=== PATIENT | female | born 1955 | race Two or more races ===

== ENCOUNTER 2016-11-19 15:24 | Inpatient (IN) | payer MEDICARE, OTHER ==
[~2016-11-19] VITALS: Ht 172.7 cm; Wt 74.1 kg
[2016-11-19] MEDS ORDERED: METHYL SALICYLATE/MENTHOL TOPICAL OINTMENT 29GM TUBE. TP PRN (18:15)
[2016-11-19] MEDS ORDERED: MAG HYDROX/AL HYDROX/SIMETH 30 ML ORAL.SUSP PO PRN (18:15)
[2016-11-19] MEDS ORDERED: MAGNESIUM HYDROXIDE 2,400 MG/30 ML ORAL.SUSP. PO PRN (18:15)
[2016-11-19] MEDS ORDERED: ACETAMINOPHEN 325 MG TABLET PO PRN (18:15)
[2016-11-19 18:26] VITALS: BP 103/62
[2016-11-19] MEDS ORDERED: BACL20TA PO (18:34)
[2016-11-19] MEDS ORDERED: VALA500T PO (18:34)
[2016-11-19] MEDS ORDERED: CALC-157 PO (18:34)
[2016-11-19] MEDS ORDERED: RANI75TA95 PO (18:34)
[2016-11-19] MEDS ORDERED: METO25TA4 PO (18:34)
[2016-11-19] MEDS ORDERED: MAGN400O7 PO (18:34)
[2016-11-19] MEDS ORDERED: ACET500T68 PO (18:34)
[2016-11-19] MEDS ORDERED: FLUV25TA PO (18:34)
[2016-11-19] MEDS ORDERED: MULT1TAB52 PO (18:34)
[2016-11-19] MEDS ORDERED: PSYLLIUM PO (18:34)
[2016-11-19] MEDS ORDERED: DIVA500T2 PO (18:34)
[2016-11-19] MEDS ORDERED: SENN8.6T99 PO (18:34)
[2016-11-19] MEDS ORDERED: POLY255P PO (18:34)
[2016-11-19] MEDS ORDERED: FAMO20TA5 PO (19:22)
[2016-11-19 19:53] LABS: ALBUMIN 3.5 g/dL (3.4-5.0); CALCIUM 8.9 mg/dL (8.5-10.1); CREATININE 0.6 mg/dL (0.6-1.0); GFR 102.3; POTASSIUM 4.1 mmol/L (3.5-5.1); TOTAL BILIRUBIN 0.3 mg/dL (0.2-1.0); TOTAL PROTEIN 6.9 g/dL (6.4-8.2)
[2016-11-19] MEDS: BACLOFEN 20 MG TABLET PO SCH (19:56)
[2016-11-19] MEDS: DIVALPROEX SODIUM 250 MG TABLET.DR. PO SCH (19:58)
[2016-11-19 20:18] LABS: PHENY < 10.0 mcg/mL (10.0-20.0); VAL ACID 61 mcg/mL (50-100)
[2016-11-19 20:24] LABS: BASO % 1 % (0-3); EOS # 0.1 x10^3/uL (0.0-0.7); EOS % 2 % (0-3); HEMATOCRIT 46.9 % (36.0-47.0); HEMOGLOBIN 16.3 g/dL (12.0-15.5); LYMPH # 2.3 x10^3/uL (1.0-4.8); LYMPH % 36 % (24-48); MEAN CORPUSCULAR HEMOGLOBIN 32 pg (25-35); MEAN CORPUSCULAR HGB CONC 35 g/dL (31-37); MEAN CORPUSCULAR VOLUME 92 fL (79-100); MONO # 0.5 x10^3/uL (0.0-1.1); MONO % 8 % (0-9); NEUT # 3.4 x10^3uL (1.8-7.7); NEUT % 54 % (31-73); PLATELET COUNT 227 x10^3/uL (140-400); RED CELL DISTRIBUTION WIDTH 13.3 % (11.5-14.5); WHITE BLOOD COUNT 6.3 x10^3/uL (4.0-11.0)
--- NOTE | 2016-11-19 20:56 | PDOC ---
Exam Tim Demential Exam: Tim Note: Please also refer to the separate dictated note~for this date of service dictated separately.~Patient seen individually. Discussed the patient with Nursing staff reviewed the chart.~Reviewed interim history and current functioning. Reviewed vital signs,~Labs/ Radiology~and current medications noted below. Continue current treatment with the changes noted in the dictated addendum note Assessment: Vital Signs: Vital Signs Date Time Temp Pulse Resp B/P (MAP) Pulse Ox O2 Delivery O2 Flow Rate FiO2 11/19/16 18:26 98.1 90 20 103/62 (76) 97 I&O Intake and Output 11/20/16 07:00 Intake Total 240 ml Balance 240 ml Intake Oral 240 ml Labs: Laboratory Tests Test 11/19/16 19:20 White Blood Count 6.3 x10^3/uL (4.0-11.0) Red Blood Count 5.10 x10^6/uL (3.50-5.40) Hemoglobin 16.3 g/dL (12.0-15.5) H Hematocrit 46.9 % (36.0-47.0) Mean Corpuscular Volume 92 fL (79-100) Mean Corpuscular Hemoglobin 32 pg (25-35) Mean Corpuscular Hemoglobin Concent 35 g/dL (31-37) Red Cell Distribution Width 13.3 % (11.5-14.5) Platelet Count 227 x10^3/uL (140-400) Neutrophils (%) (Auto) 54 % (31-73) Lymphocytes (%) (Auto) 36 % (24-48) Monocytes (%) (Auto) 8 % (0-9) Eosinophils (%) (Auto) 2 % (0-3) Basophils (%) (Auto) 1 % (0-3) Neutrophils # (Auto) 3.4 x10^3uL (1.8-7.7) Lymphocytes # (Auto) 2.3 x10^3/uL (1.0-4.8) Monocytes # (Auto) 0.5 x10^3/uL (0.0-1.1) Eosinophils # (Auto) 0.1 x10^3/uL (0.0-0.7) Basophils # (Auto) 0.0 x10^3/uL (0.0-0.2) Sodium Level 141 mmol/L (136-145) Potassium Level 4.1 mmol/L (3.5-5.1) Chloride Level 107 mmol/L (98-107) Carbon Dioxide Level 26 mmol/L (21-32) Anion Gap 8 (6-14) Blood Urea Nitrogen 10 mg/dL (7-20) Creatinine 0.6 mg/dL (0.6-1.0) Estimated GFR (Cockcroft-Gault) 102.3 BUN/Creatinine Ratio 17 (6-20) Glucose Level 137 mg/dL (70-99) H Calcium Level 8.9 mg/dL (8.5-10.1) Magnesium Level 2.0 mg/dL (1.8-2.4) Total Bilirubin 0.3 mg/dL (0.2-1.0) Aspartate Amino Transferase (AST) 9 U/L (15-37) L Alanine Aminotransferase (ALT) 26 U/L (14-59) Alkaline Phosphatase 94 U/L (46-116) Total Protein 6.9 g/dL (6.4-8.2) Albumin 3.5 g/dL (3.4-5.0) Albumin/Globulin Ratio 1.0 (1.0-1.7) Phenytoin (Dilantin) Level < 10.0 mcg/mL (10.0-20.0) L Phenytoin Last Dose Date 11/15/16 Phenytoin Last Dose Time 2100 Valproic Acid Level 61 mcg/mL (50-100) Valproic Acid Last Dose Date 11/19/16 Valproic Acid Last Dose Time 0900 Current Medications: Meds: Current Medications Acetaminophen (Tylenol) 650 mg PRN Q6HRS PRN PO PAIN / TEMP; Start 11/19/16 at 18:15 Multi-Ingredient Ointment (Analgesic [place]) 1 william PRN QID PRN TP MUSCLE PAIN; Start 11/19/16 at 18:15 Al Hydroxide/Mg Hydroxide (Mylanta Plus Xs) 15 ml PRN AFTMEALHC PRN PO DYSPEPSIA; Start 11/19/16 at 18:15 Magnesium Hydroxide (Milk Of Magnesia) 2,400 mg PRN QHS PRN PO CONSTIPATION; Start 11/19/16 at 18:15 Influenza Virus Vaccine Quadrival (Fluarix Quad 1367-6612 Syringe) 0.5 ml 1X ONCE VAX IM ; Start 11/20/16 at 09:00; Stop 11/20/16 at 09:01 Fluvoxamine Maleate (Luvox) 25 mg HS PO Last administered on 11/19/16 19:58; Start 11/19/16 at 21:00 Divalproex Sodium (Depakote) 1,000 mg BID PO Last administered on 11/19/16 19: 58; Start 11/19/16 at 21:00 Baclofen (Lioresal) 20 mg QID PO Last administered on 11/19/16 19:56; Start at 21:00 Famotidine (Pepcid) 20 mg DAILY PO ; Start 11/20/16 at 09:00 Polyethylene Glycol (miraLAX) 17 gm DAILY PO ; Start 11/20/16 at 09:00 Valacyclovir HCl (Valtrex) 500 mg DAILY PO ; Start 11/20/16 at 09:00 Active Scripts Active Reported Famotidine 20 Mg Tablet 20 Mg PO DAILY Valacyclovir (Valacyclovir Hcl) 500 Mg Tablet 500 Mg PO DAILY Polyethylene Glycol 3350 255 Gm Powder 17 Gm PO DAILY Metoprolol Tartrate 25 Mg Tablet 12.5 Mg PO BID Fluvoxamine Maleate 25 Mg Tablet 25 Mg PO HS Depakote (Divalproex Sodium) 500 Mg Tablet. 1,000 Mg PO BID Baclofen 20 Mg Tablet 20 Mg PO QID Diagnosis: Problems: (1) Bipolar disorder, curr episode mixed, severe, with psychotic features (2) Anxiety disorder (3) Impulse control disorder TRUPTI CARVAJAL MD Nov 19, 2016 20:56
[2016-11-20 06:14] VITALS: BP 109/74
[2016-11-20] MEDS ORDERED: Influenza vaccine per PROTOCOL. MC ONE (09:00)
[2016-11-20] MEDS ORDERED: FLU VACC QS2017-18 (36MOS+)/PF 0.5 ML SYRINGE. VAX IM ONE ×2 (09:00)
[2016-11-20] MEDS: valACYclovir 500 MG TABLET. PO SCH (09:39)
[2016-11-20] MEDS: DIVALPROEX SODIUM 250 MG TABLET.DR. PO SCH ×2 (09:39→19:39)
[2016-11-20] MEDS: BACLOFEN 20 MG TABLET PO SCH ×4 (09:39→19:39)
[2016-11-20] MEDS: FAMOTIDINE 20 MG TABLET PO SCH (09:39)
[2016-11-20] MEDS: POLYETHYLENE GLYCOL 3350 17 GM PACKET. PO SCH (09:39)
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
[2016-11-20 10:36] LABS: THYROID STIM HORMONE (TSH) 0.731 uIU/mL (0.358-3.740)
--- NOTE | 2016-11-20 12:05 | EKG ---
[address] [address] Test Date: 2016-11-20 Test Time: 11:19:45 Pat Name: JONAH CAMARA Department: Room: [address] [place] [address] Gender: F Sales Assistant: BRITTANY : 1955 Requested By: TRUPTI CARVAJAL Order Number: [id number] Reading MD: Rc Phillip Measurements Intervals [place] Rate: 92 P: 44 NE: 146 QRS: 12 QRSD: 74 T: 51 QT: 328 QTc: 410 Interpretive Statements SINUS RHYTHM LEFT ATRIAL ABNORMALITY ABNORMAL ECG RI6.01 No previous ECG available for comparison Electronically Signed On 12-03-2016 12:07:14 CDT by Rc Phillip
[2016-11-20 12:09] LABS: T3 TOTAL 90 ng/dL (71-180); THYROXINE 7.7 ug/dL (4.5-12.0)
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
[2016-11-20 16:54] VITALS: BP 117/77
[2016-11-20] MEDS: SIMVASTATIN 5 MG TABLET. PO SCH (19:40)
--- NOTE | 2016-11-20 21:10 | PDOC ---
Exam Tim Demential Exam: Tim Note: Please also refer to the separate dictated note~for this date of service dictated separately.~Patient seen individually. Discussed the patient with Nursing staff reviewed the chart.~Reviewed interim history and current functioning. Reviewed vital signs,~Labs/ Radiology~and current medications noted below. Continue current treatment with the changes noted in the dictated addendum note Assessment: Vital Signs: Vital Signs Date Time Temp Pulse Resp B/P (MAP) Pulse Ox O2 Delivery O2 Flow Rate FiO2 11/20/16 16:54 98.0 83 20 117/77 (90) 99 Room Air I&O Intake and Output 11/21/16 07:00 Intake Total 1080 ml Balance 1080 ml Intake Oral 1080 ml Current Medications: Meds: Current Medications Acetaminophen (Tylenol) 650 mg PRN Q6HRS PRN PO PAIN / TEMP; Start 11/19/16 at 18:15 Multi-Ingredient Ointment (Analgesic [place]) 1 william PRN QID PRN TP MUSCLE PAIN; Start 11/19/16 at 18:15 Al Hydroxide/Mg Hydroxide (Mylanta Plus Xs) 15 ml PRN AFTMEALHC PRN PO DYSPEPSIA; Start 11/19/16 at 18:15 Magnesium Hydroxide (Milk Of Magnesia) 2,400 mg PRN QHS PRN PO CONSTIPATION; Start 11/19/16 at 18:15 Influenza Virus Vaccine Quadrival (Fluarix Quad [id number] Syringe) 0.5 ml 1X ONCE VAX IM Last administered on 11/20/16 09:44; Start 11/20/16 at 09:00; Stop 11/20/16 at 09:01; Status DC Fluvoxamine Maleate (Luvox) 25 mg HS PO Last administered on 11/20/16 19:39; Start 11/19/16 at 21:00 Divalproex Sodium (Depakote) 1,000 mg BID PO Last administered on 11/20/16 19: 39; Start 11/19/16 at 21:00 Baclofen (Lioresal) 20 mg QID PO Last administered on 11/20/16 19:39; Start at 21:00 Famotidine (Pepcid) 20 mg DAILY PO Last administered on 11/20/16 09:39; Start 11/20/16 at 09:00 Polyethylene Glycol (miraLAX) 17 gm DAILY PO Last administered on 11/20/16 09: 39; Start 11/20/16 at 09:00 Valacyclovir HCl (Valtrex) 500 mg DAILY PO Last administered on 11/20/16 09:39 ; Start 11/20/16 at 09:00 Info (FLU VACCINE per PROTOCOL) 1 ea 1X ONCE MC ; Start 11/20/16 at 09:00; Stop 11/20/16 at 09:01; Status UNV Influenza Virus Vaccine Quadrival (Fluarix Quad [id number] Syringe) 0.5 ml ONCE ONCE VAX IM ; Start 11/20/16 at 09:00; Stop 11/20/16 at 10:40; Status DC Simvastatin (Zocor) 5 mg QHS PO Last administered on 11/20/16 19:40; Start at 21:00 Active Scripts Active Reported Famotidine 20 Mg Tablet 20 Mg PO DAILY Valacyclovir (Valacyclovir Hcl) 500 Mg Tablet 500 Mg PO DAILY Polyethylene Glycol 3350 255 Gm Powder 17 Gm PO DAILY Metoprolol Tartrate 25 Mg Tablet 12.5 Mg PO BID Fluvoxamine Maleate 25 Mg Tablet 25 Mg PO HS Depakote (Divalproex Sodium) 500 Mg Tablet.dr 1,000 Mg PO BID Baclofen 20 Mg Tablet 20 Mg PO QID Diagnosis: Problems: (1) Bipolar disorder, curr episode mixed, severe, with psychotic features (2) Anxiety disorder (3) Mild cognitive disorder (4) Impulse control disorder TRUPTI CARVAJAL MD Nov 20, 2016 21:10
[2016-11-20 22:10] LABS: HEMOGLOBIN A1C 4.6 % (4.8-5.6)
[2016-11-21 06:16] VITALS: BP 103/68
[2016-11-21] MEDS: FAMOTIDINE 20 MG TABLET PO SCH (09:32)
[2016-11-21] MEDS: valACYclovir 500 MG TABLET. PO SCH (09:32)
[2016-11-21] MEDS: DIVALPROEX SODIUM 250 MG TABLET.DR. PO SCH ×2 (09:32→20:50)
[2016-11-21] MEDS: BACLOFEN 20 MG TABLET PO SCH ×4 (09:32→19:49)
[2016-11-21] MEDS: POLYETHYLENE GLYCOL 3350 17 GM PACKET. PO SCH (09:32)
[2016-11-21 16:16] VITALS: BP 107/67
[2016-11-21 18:58] LABS: BASO % 1 % (0-3); EOS # 0.1 x10^3/uL (0.0-0.7); EOS % 2 % (0-3); HEMATOCRIT 43.2 % (36.0-47.0); HEMOGLOBIN 15.1 g/dL (12.0-15.5); LYMPH # 1.7 x10^3/uL (1.0-4.8); LYMPH % 35 % (24-48); MEAN CORPUSCULAR HEMOGLOBIN 32 pg (25-35); MEAN CORPUSCULAR HGB CONC 35 g/dL (31-37); MEAN CORPUSCULAR VOLUME 93 fL (79-100); MONO # 0.4 x10^3/uL (0.0-1.1); MONO % 9 % (0-9); NEUT # 2.7 x10^3uL (1.8-7.7); NEUT % 55 % (31-73); PLATELET COUNT 201 x10^3/uL (140-400); RED BLOOD COUNT 4.66 x10^6/uL (3.50-5.40); RED CELL DISTRIBUTION WIDTH 13.1 % (11.5-14.5); WHITE BLOOD COUNT 4.9 x10^3/uL (4.0-11.0)
[2016-11-21 19:02] LABS: ALBUMIN 3.1 g/dL (3.4-5.0); ALBUMIN/GLOBULIN RATIO 0.9 (1.0-1.7); ALK PHOS 79 U/L (46-116); ALT (SGPT) 18 U/L (14-59); ANION GAP 6 (6-14); AST (SGOT) 8 U/L (15-37); BLOOD UREA NITROGEN 11 mg/dL (7-20); BUN/CREATININE RATIO 22 (6-20); CALCIUM 8.4 mg/dL (8.5-10.1); CARBON DIOXIDE 32 mmol/L (21-32); CHLORIDE 106 mmol/L (98-107); CREATININE 0.5 mg/dL (0.6-1.0); GFR 126.3; GLUCOSE 88 mg/dL (70-99); SODIUM 144 mmol/L (136-145); TOTAL BILIRUBIN 0.2 mg/dL (0.2-1.0); TOTAL PROTEIN 6.4 g/dL (6.4-8.2)
[2016-11-21 19:10] LABS: VAL ACID 82 mcg/mL (50-100)
[2016-11-21] MEDS: QUEtiapine 25 MG TABLET. PO SCH (19:50)
[2016-11-21] MEDS: SIMVASTATIN 5 MG TABLET. PO SCH (19:50)
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
--- NOTE | 2016-11-21 22:40 | PDOC ---
Exam Tim Demential Exam: Tim Note: Please also refer to the separate dictated note~for this date of service dictated separately.~Patient seen individually. Discussed the patient with Nursing staff reviewed the chart.~Reviewed interim history and current functioning. Reviewed vital signs,~Labs/ Radiology~and current medications noted below. Continue current treatment with the changes noted in the dictated addendum note Assessment: Vital Signs: Vital Signs Date Time Temp Pulse Resp B/P (MAP) Pulse Ox O2 Delivery O2 Flow Rate FiO2 11/21/16 16:16 97.6 76 20 107/67 (80) 95 11/20/16 16:54 Room Air I&O Intake and Output 11/22/16 07:00 Intake Total 1800 ml Balance 1800 ml Intake Oral 1800 ml # Voids 2 Labs: Laboratory Tests Test 11/21/16 18:40 White Blood Count 4.9 x10^3/uL (4.0-11.0) Red Blood Count 4.66 x10^6/uL (3.50-5.40) Hemoglobin 15.1 g/dL (12.0-15.5) Hematocrit 43.2 % (36.0-47.0) Mean Corpuscular Volume 93 fL (79-100) Mean Corpuscular Hemoglobin 32 pg (25-35) Mean Corpuscular Hemoglobin Concent 35 g/dL (31-37) Red Cell Distribution Width 13.1 % (11.5-14.5) Platelet Count 201 x10^3/uL (140-400) Neutrophils (%) (Auto) 55 % (31-73) Lymphocytes (%) (Auto) 35 % (24-48) Monocytes (%) (Auto) 9 % (0-9) Eosinophils (%) (Auto) 2 % (0-3) Basophils (%) (Auto) 1 % (0-3) Neutrophils # (Auto) 2.7 x10^3uL (1.8-7.7) Lymphocytes # (Auto) 1.7 x10^3/uL (1.0-4.8) Monocytes # (Auto) 0.4 x10^3/uL (0.0-1.1) Eosinophils # (Auto) 0.1 x10^3/uL (0.0-0.7) Basophils # (Auto) 0.0 x10^3/uL (0.0-0.2) Sodium Level 144 mmol/L (136-145) Potassium Level 4.0 mmol/L (3.5-5.1) Chloride Level 106 mmol/L (98-107) Carbon Dioxide Level 32 mmol/L (21-32) Anion Gap 6 (6-14) Blood Urea Nitrogen 11 mg/dL (7-20) Creatinine 0.5 mg/dL (0.6-1.0) L Estimated GFR (Cockcroft-Gault) 126.3 BUN/Creatinine Ratio 22 (6-20) H Glucose Level 88 mg/dL (70-99) Calcium Level 8.4 mg/dL (8.5-10.1) L Total Bilirubin 0.2 mg/dL (0.2-1.0) Aspartate Amino Transferase (AST) 8 U/L (15-37) L Alanine Aminotransferase (ALT) 18 U/L (14-59) Alkaline Phosphatase 79 U/L (46-116) Total Protein 6.4 g/dL (6.4-8.2) Albumin 3.1 g/dL (3.4-5.0) L Albumin/Globulin Ratio 0.9 (1.0-1.7) L Valproic Acid Level 82 mcg/mL (50-100) Valproic Acid Last Dose Date 11/21/16 Valproic Acid Last Dose Time 0900 Current Medications: Meds: Current Medications Acetaminophen (Tylenol) 650 mg PRN Q6HRS PRN PO PAIN / TEMP; Start 11/19/16 at 18:15 Multi-Ingredient Ointment (Analgesic [place]) 1 william PRN QID PRN TP MUSCLE PAIN; Start 11/19/16 at 18:15 Al Hydroxide/Mg Hydroxide (Mylanta Plus Xs) 15 ml PRN AFTMEALHC PRN PO DYSPEPSIA; Start 11/19/16 at 18:15 Magnesium Hydroxide (Milk Of Magnesia) 2,400 mg PRN QHS PRN PO CONSTIPATION; Start 11/19/16 at 18:15 Influenza Virus Vaccine Quadrival (Fluarix Quad [id number] Syringe) 0.5 ml 1X ONCE VAX IM Last administered on 11/20/16t 09:44; Start 11/20/16 at 09:00; Stop 11/20/16 at 09:01; Status DC Fluvoxamine Maleate (Luvox) 25 mg HS PO Last administered on 11/21/16 19:49; Start 11/19/16 at 21:00 Divalproex Sodium (Depakote) 1,000 mg BID PO Last administered on 11/21/16 20: 50; Start 11/19/16 at 21:00 Baclofen (Lioresal) 20 mg QID PO Last administered on 11/21/16 19:49; Start at 21:00 Famotidine (Pepcid) 20 mg DAILY PO Last administered on 11/21/16 09:32; Start 11/20/16 at 09:00 Polyethylene Glycol (miraLAX) 17 gm DAILY PO Last administered on 11/21/16 09: 32; Start 11/20/16 at 09:00 Valacyclovir HCl (Valtrex) 500 mg DAILY PO Last administered on 11/21/16 09:32 ; Start 11/20/16 at 09:00 Info (FLU VACCINE per PROTOCOL) 1 ea 1X ONCE MC ; Start 11/20/16 at 09:00; Stop 11/20/16 at 09:01; Status UNV Influenza Virus Vaccine Quadrival (Fluarix Quad [id number] Syringe) 0.5 ml ONCE ONCE VAX IM ; Start 11/20/16 at 09:00; Stop 11/20/16 at 10:40; Status DC Simvastatin (Zocor) 5 mg QHS PO Last administered on 11/21/16 19:50; Start at 21:00 Quetiapine Fumarate (SEROquel) 25 mg HS PO Last administered on 11/21/16 19:50 ; Start 11/21/16 at 21:00 Active Scripts Active Reported Famotidine 20 Mg Tablet 20 Mg PO DAILY Valacyclovir (Valacyclovir Hcl) 500 Mg Tablet 500 Mg PO DAILY Polyethylene Glycol 3350 255 Gm Powder 17 Gm PO DAILY Metoprolol Tartrate 25 Mg Tablet 12.5 Mg PO BID Fluvoxamine Maleate 25 Mg Tablet 25 Mg PO HS Depakote (Divalproex Sodium) 500 Mg Tablet. 1,000 Mg PO BID Baclofen 20 Mg Tablet 20 Mg PO QID Diagnosis: Problems: (1) Bipolar disorder, curr episode mixed, severe, with psychotic features (2) Anxiety disorder (3) Impulse control disorder TRUPTI CARVAJAL MD Nov 21, 2016 22:40
[2016-11-22 06:50] VITALS: BP 109/64
[2016-11-22] MEDS: FAMOTIDINE 20 MG TABLET PO SCH (09:35)
[2016-11-22] MEDS: DIVALPROEX SODIUM 250 MG TABLET.DR. PO SCH ×2 (09:35→20:03)
[2016-11-22] MEDS: BACLOFEN 20 MG TABLET PO SCH ×4 (09:36→20:02)
[2016-11-22] MEDS: valACYclovir 500 MG TABLET. PO SCH (09:36)
[2016-11-22] MEDS: POLYETHYLENE GLYCOL 3350 17 GM PACKET. PO SCH (09:36)
[2016-11-22 16:23] VITALS: BP 106/66
[2016-11-22 17:52] LABS: BILIRUBIN,URINE NEG (NEG); CLARITY,URINE CLOUDY; COLOR,URINE YELLOW; GLUCOSE,URINE NEG (NEG)
[2016-11-22 17:53] LABS: BACTERIA,URINE MOD /HPF (0-FEW); NITRITE,URINE POS (NEG); SQUAMOUS EPITHELIAL CELL,UR FEW /LPF; UROBILINOGEN,URINE 0.2 mg/dL (0.2 mg/dL); WBC,URINE TNTC /HPF (0-4)
[2016-11-22] MEDS: QUEtiapine 25 MG TABLET. PO SCH (20:02)
[2016-11-22] MEDS: SIMVASTATIN 5 MG TABLET. PO SCH (20:03)
--- NOTE | 2016-11-22 20:59 | PDOC ---
Exam Tim Demential Exam: Tim Note: Please also refer to the separate dictated note~for this date of service dictated separately.~Patient seen individually. Discussed the patient with Nursing staff reviewed the chart.~Reviewed interim history and current functioning. Reviewed vital signs,~Labs/ Radiology~and current medications noted below. Continue current treatment with the changes noted in the dictated addendum note Assessment: Vital Signs: Vital Signs Date Time Temp Pulse Resp B/P (MAP) Pulse Ox O2 Delivery O2 Flow Rate FiO2 11/22/16 16:23 97.5 58 16 106/66 (79) 99 11/20/16 16:54 Room Air I&O Intake and Output 11/23/16 07:00 Intake Total 960 ml Output Total 325 ml Balance 635 ml Intake Oral 960 ml Output Urine Total 325 ml Labs: Laboratory Tests Test 11/22/16 15:30 Urine Collection Type Void Urine Color Yellow Urine Clarity Cloudy Urine pH 7.5 Urine Specific [place] 1.015 Urine Protein Neg (NEG-TRACE) Urine Glucose (UA) Neg mg/dL (NEG) Urine Ketones (Stick) Neg mg/dL (NEG) Urine Blood Mod (NEG) Urine Nitrite Pos (NEG) Urine Bilirubin Neg (NEG) Urine Urobilinogen Dipstick 0.2 mg/dL (0.2 mg/dL) Urine Leukocyte Esterase Large (NEG) Urine RBC 1-2 /HPF (0-2) Urine WBC Tntc /HPF (0-4) Urine Squamous Epithelial Cells Few /LPF Urine Bacteria Mod /HPF (0-FEW) Current Medications: Meds: Current Medications Acetaminophen (Tylenol) 650 mg PRN Q6HRS PRN PO PAIN / TEMP; Start 11/19/16 at 18:15 Multi-Ingredient Ointment (Analgesic [place]) 1 william PRN QID PRN TP MUSCLE PAIN; Start 11/19/16 at 18:15 Al Hydroxide/Mg Hydroxide (Mylanta Plus Xs) 15 ml PRN AFTMEALHC PRN PO DYSPEPSIA; Start 11/19/16 at 18:15 Magnesium Hydroxide (Milk Of Magnesia) 2,400 mg PRN QHS PRN PO CONSTIPATION; Start 11/19/16 at 18:15 Influenza Virus Vaccine Quadrival (Fluarix Quad [id number] Syringe) 0.5 ml 1X ONCE VAX IM Last administered on 11/20/16t 09:44; Start 11/20/16 at 09:00; Stop 11/20/16 at 09:01; Status DC Fluvoxamine Maleate (Luvox) 25 mg HS PO Last administered on 11/22/16 20:02; Start 11/19/16 at 21:00 Divalproex Sodium (Depakote) 1,000 mg BID PO Last administered on 11/22/16 20: 03; Start 11/19/16 at 21:00 Baclofen (Lioresal) 20 mg QID PO Last administered on 11/22/16 20:02; Start at 21:00 Famotidine (Pepcid) 20 mg DAILY PO Last administered on 11/22/16 09:35; Start 11/20/16 at 09:00 Polyethylene Glycol (miraLAX) 17 gm DAILY PO Last administered on 11/22/16 09: 36; Start 11/20/16 at 09:00 Valacyclovir HCl (Valtrex) 500 mg DAILY PO Last administered on 11/22/16 09:36 ; Start 11/20/16 at 09:00 Info (FLU VACCINE per PROTOCOL) 1 ea 1X ONCE MC ; Start 11/20/16 at 09:00; Stop 11/20/16 at 09:01; Status UNV Influenza Virus Vaccine Quadrival (Fluarix Quad [id number] Syringe) 0.5 ml ONCE ONCE VAX IM ; Start 11/20/16 at 09:00; Stop 11/20/16 at 10:40; Status DC Simvastatin (Zocor) 5 mg QHS PO Last administered on 11/22/16 20:03; Start at 21:00 Quetiapine Fumarate (SEROquel) 25 mg HS PO Last administered on 11/22/16 20:02 ; Start 11/21/16 at 21:00 Active Scripts Active Reported Famotidine 20 Mg Tablet 20 Mg PO DAILY Valacyclovir (Valacyclovir Hcl) 500 Mg Tablet 500 Mg PO DAILY Polyethylene Glycol 3350 255 Gm Powder 17 Gm PO DAILY Metoprolol Tartrate 25 Mg Tablet 12.5 Mg PO BID Fluvoxamine Maleate 25 Mg Tablet 25 Mg PO HS Depakote (Divalproex Sodium) 500 Mg Tablet. 1,000 Mg PO BID Baclofen 20 Mg Tablet 20 Mg PO QID Diagnosis: Problems: (1) Bipolar disorder, curr episode mixed, severe, with psychotic features (2) Anxiety disorder (3) Impulse control disorder TRUPTI CARVAJAL MD Nov 22, 2016 20:59
[2016-11-23 06:18] VITALS: BP 114/67
--- NOTE | 2016-11-23 07:06 | PN ---
DATE: 11/21/2016 PSYCHIATRIC PROGRESS NOTE This late entry 11/21/2016, covers elements not covered in my initial note of 11/21/2016. I met with the patient evening of 11/21/2016. The patient's UA has a strong odor, has been sent for urine C and S. She remains quite paranoid, more so the previous evening, better during the day on 11/21/2016. REVIEW OF SYSTEMS: Ambulation impaired, in a Broda chair. No CV, , pulmonary, eye, ENT system symptoms on review. MENTAL STATUS EXAM: Reasonably oriented. Speech is coherent, abstraction fair, computation impaired, language function intact, totally denies any psychiatric problems whatsoever, insistent she will do just fine without any psychotropics minimizes her suicide attempt in the past processed all of this with her labs reviewed. IMPRESSION: Bipolar 1 disorder, mixed with psychotic features; anxiety disorder, unspecified mild cognitive impairment. PLAN: Valproic acid level is therapeutic. Continue Depakote 1000 mg b.i.d., Seroquel is 25 mg at bedtime, Luvox 25 mg a day, starting in a day or two, we may increase the Seroquel, but I would like to first make sure she does not have a UTI and if she does treat that and then see what psychiatric symptoms are remaining before increasing her psychotropics. Reviewed drug contractions, risk/benefit ratio favors no further change. TRUPTI CARVAJAL MD DR: ABBIE/juliana JOB#: [id number] / [id number]
[2016-11-23] MEDS: DIVALPROEX SODIUM 250 MG TABLET.DR. PO SCH ×2 (08:16→19:31)
[2016-11-23] MEDS: FAMOTIDINE 20 MG TABLET PO SCH (08:16)
[2016-11-23] MEDS: BACLOFEN 20 MG TABLET PO SCH ×4 (08:16→19:31)
[2016-11-23] MEDS: POLYETHYLENE GLYCOL 3350 17 GM PACKET. PO SCH (08:17)
[2016-11-23] MEDS: valACYclovir 500 MG TABLET. PO SCH (08:17)
[2016-11-23 16:05] VITALS: BP 131/90
[2016-11-23] MEDS: SIMVASTATIN 5 MG TABLET. PO SCH (19:31)
[2016-11-23] MEDS: QUEtiapine 25 MG TABLET. PO SCH (19:31)
--- NOTE | 2016-11-23 20:52 | PDOC ---
Exam Tim Demential Exam: Tim Note: Please also refer to the separate dictated note~for this date of service dictated separately.~Patient seen individually. Discussed the patient with Nursing staff reviewed the chart.~Reviewed interim history and current functioning. Reviewed vital signs,~Labs/ Radiology~and current medications noted below. Continue current treatment with the changes noted in the dictated addendum note Assessment: Vital Signs: Vital Signs Date Time Temp Pulse Resp B/P (MAP) Pulse Ox O2 Delivery O2 Flow Rate FiO2 11/23/16 16:05 97.2 71 18 131/90 (104) 98 11/20/16 16:54 Room Air I&O Intake and Output 11/24/16 07:00 Intake Total 1320 ml Balance 1320 ml Intake Oral 1320 ml Current Medications: Meds: Current Medications Acetaminophen (Tylenol) 650 mg PRN Q6HRS PRN PO PAIN / TEMP; Start 11/19/16 at 18:15 Multi-Ingredient Ointment (Analgesic [place]) 1 william PRN QID PRN TP MUSCLE PAIN; Start 11/19/16 at 18:15 Al Hydroxide/Mg Hydroxide (Mylanta Plus Xs) 15 ml PRN AFTMEALHC PRN PO DYSPEPSIA; Start 11/19/16 at 18:15 Magnesium Hydroxide (Milk Of Magnesia) 2,400 mg PRN QHS PRN PO CONSTIPATION; Start 11/19/16 at 18:15 Influenza Virus Vaccine Quadrival (Fluarix Quad [id number] Syringe) 0.5 ml 1X ONCE VAX IM Last administered on 11/20/16 09:44; Start 11/20/16 at 09:00; Stop 11/20/16 at 09:01; Status DC Fluvoxamine Maleate (Luvox) 25 mg HS PO Last administered on 11/23/16 19:31; Start 11/19/16 at 21:00 Divalproex Sodium (Depakote) 1,000 mg BID PO Last administered on 11/23/16 19: 31; Start 11/19/16 at 21:00 Baclofen (Lioresal) 20 mg QID PO Last administered on 11/23/16 19:31; Start at 21:00 Famotidine (Pepcid) 20 mg DAILY PO Last administered on 11/23/16 08:16; Start 11/20/16 at 09:00 Polyethylene Glycol (miraLAX) 17 gm DAILY PO Last administered on 11/23/16 08: 17; Start 11/20/16 at 09:00 Valacyclovir HCl (Valtrex) 500 mg DAILY PO Last administered on 11/23/16 08:17 ; Start 11/20/16 at 09:00 Info (FLU VACCINE per PROTOCOL) 1 ea 1X ONCE MC ; Start 11/20/16 at 09:00; Stop 11/20/16 at 09:01; Status UNV Influenza Virus Vaccine Quadrival (Fluarix Quad [id number] Syringe) 0.5 ml ONCE ONCE VAX IM ; Start 11/20/16 at 09:00; Stop 11/20/16 at 10:40; Status DC Simvastatin (Zocor) 5 mg QHS PO Last administered on 11/23/16 19:31; Start at 21:00 Quetiapine Fumarate (SEROquel) 25 mg HS PO Last administered on 11/23/16 19:31 ; Start 11/21/16 at 21:00 Active Scripts Active Reported Famotidine 20 Mg Tablet 20 Mg PO DAILY Valacyclovir (Valacyclovir Hcl) 500 Mg Tablet 500 Mg PO DAILY Polyethylene Glycol 3350 255 Gm Powder 17 Gm PO DAILY Metoprolol Tartrate 25 Mg Tablet 12.5 Mg PO BID Fluvoxamine Maleate 25 Mg Tablet 25 Mg PO HS Depakote (Divalproex Sodium) 500 Mg Tablet. 1,000 Mg PO BID Baclofen 20 Mg Tablet 20 Mg PO QID Diagnosis: Problems: (1) Bipolar disorder, curr episode mixed, severe, with psychotic features (2) Anxiety disorder (3) Impulse control disorder TRUPTI CARVAJAL MD Nov 23, 2016 20:52
[2016-11-24 06:21] VITALS: BP 95/61
[2016-11-24] MEDS: DIVALPROEX SODIUM 250 MG TABLET.DR. PO SCH ×2 (08:24→20:24)
[2016-11-24] MEDS: FAMOTIDINE 20 MG TABLET PO SCH (08:24)
[2016-11-24] MEDS: POLYETHYLENE GLYCOL 3350 17 GM PACKET. PO SCH (08:24)
[2016-11-24] MEDS: valACYclovir 500 MG TABLET. PO SCH (08:24)
[2016-11-24] MEDS: BACLOFEN 20 MG TABLET PO SCH ×4 (08:24→20:23)
[2016-11-24 16:11] VITALS: BP 131/78
--- NOTE | 2016-11-24 19:09 | PN ---
DATE: 11/22/2016 PSYCHIATRIC PROGRESS NOTE This is a late entry 11/22/2016, covers elements not covered in my initial note of 11/22/2016. SUBJECTIVE: I met with the patient the evening of 11/22/2016. Per nursing report; the patient has been calm, cooperative, gets little anxious, labile at times, but redirects. REVIEW OF SYSTEMS: Ambulation impaired, in a Broda chair. No CV, , pulmonary, eye, ENT system symptoms on review. MENTAL STATUS EXAM: Reasonably oriented. Speech is coherent, abstraction fair, computation impaired, language function intact, attention span short. Mood and affect; she is somewhat obsessive, repetitive, ruminative. Denies that she has any psychiatric problems whatsoever. Denies what happened in the past suicide attempt. She admits there is a family history of bipolar disorder, but "I don't have it." Processed this at length with her. Mental status exam reasonably oriented. Speech coherent, abstraction fair, computation impaired, language function intact, attention span short. Mood and affect somewhat anxious, at times labile, showing improvement. LABORATORY DATA: Valproic acid level therapeutic at 82. DIAGNOSIS: Mentioned in my initial note. PLAN: Continue Depakote, Luvox, Seroquel. We will see how she does over the next day or two and then increase Luvox and/or Seroquel since Depakote is therapeutic. MAN Derrick CARVAJAL MD DR: ABBIE/juliana JOB#: [id number] / [id number]
[2016-11-24] MEDS: QUEtiapine 25 MG TABLET. PO SCH (20:23)
[2016-11-24] MEDS: SIMVASTATIN 5 MG TABLET. PO SCH (20:25)
[2016-11-24] MEDS: CEFPODOXIME PROXETIL 100 MG TABLET PO SCH (20:26)
--- NOTE | 2016-11-24 20:43 | PDOC ---
Exam Tim Demential Exam: Tim Note: Please also refer to the separate dictated note~for this date of service dictated separately.~Patient seen individually. Discussed the patient with Nursing staff reviewed the chart.~Reviewed interim history and current functioning. Reviewed vital signs,~Labs/ Radiology~and current medications noted below. Continue current treatment with the changes noted in the dictated addendum note Assessment: Vital Signs: Vital Signs Date Time Temp Pulse Resp B/P (MAP) Pulse Ox O2 Delivery O2 Flow Rate FiO2 11/24/16 16:11 98.1 74 18 131/78 (95) 98 11/20/16 16:54 Room Air I&O Intake and Output 11/25/16 06:59 Intake Total 1200 ml Output Total 1 ml Balance 1199 ml Intake Oral 1200 ml Output Urine Total 1 ml # Bowel Movements 5 Current Medications: Meds: Current Medications Acetaminophen (Tylenol) 650 mg PRN Q6HRS PRN PO PAIN / TEMP; Start 11/19/16 at 18:15 Multi-Ingredient Ointment (Analgesic [place]) 1 william PRN QID PRN TP MUSCLE PAIN; Start 11/19/16 at 18:15 Al Hydroxide/Mg Hydroxide (Mylanta Plus Xs) 15 ml PRN AFTMEALHC PRN PO DYSPEPSIA; Start 11/19/16 at 18:15 Magnesium Hydroxide (Milk Of Magnesia) 2,400 mg PRN QHS PRN PO CONSTIPATION; Start 11/19/16 at 18:15 Influenza Virus Vaccine Quadrival (Fluarix Quad [id number] Syringe) 0.5 ml 1X ONCE VAX IM Last administered on 11/20/16 09:44; Start 11/20/16 at 09:00; Stop 11/20/16 at 09:01; Status DC Fluvoxamine Maleate (Luvox) 25 mg HS PO Last administered on 11/24/16 20:23; Start 11/19/16 at 21:00 Divalproex Sodium (Depakote) 1,000 mg BID PO Last administered on 11/24/16 20: 24; Start 11/19/16 at 21:00 Baclofen (Lioresal) 20 mg QID PO Last administered on 11/24/16 20:23; Start at 21:00 Famotidine (Pepcid) 20 mg DAILY PO Last administered on 11/24/16 08:24; Start 11/20/16 at 09:00 Polyethylene Glycol (miraLAX) 17 gm DAILY PO Last administered on 11/24/16 08: 24; Start 11/20/16 at 09:00 Valacyclovir HCl (Valtrex) 500 mg DAILY PO Last administered on 11/24/16 08:24 ; Start 11/20/16 at 09:00 Info (FLU VACCINE per PROTOCOL) 1 ea 1X ONCE MC ; Start 11/20/16 at 09:00; Stop 11/20/16 at 09:01; Status UNV Influenza Virus Vaccine Quadrival (Fluarix Quad [id number] Syringe) 0.5 ml ONCE ONCE VAX IM ; Start 11/20/16 at 09:00; Stop 11/20/16 at 10:40; Status DC Simvastatin (Zocor) 5 mg QHS PO Last administered on 11/24/16 20:25; Start at 21:00 Quetiapine Fumarate (SEROquel) 25 mg HS PO Last administered on 11/24/16 20:23 ; Start 11/21/16 at 21:00 Cefpodoxime Proxetil (Vantin) 200 mg BID PO Last administered on 11/24/16 20: 26; Start 11/24/16 at 21:00 Active Scripts Active Reported Famotidine 20 Mg Tablet 20 Mg PO DAILY Valacyclovir (Valacyclovir Hcl) 500 Mg Tablet 500 Mg PO DAILY Polyethylene Glycol 3350 255 Gm Powder 17 Gm PO DAILY Metoprolol Tartrate 25 Mg Tablet 12.5 Mg PO BID Fluvoxamine Maleate 25 Mg Tablet 25 Mg PO HS Depakote (Divalproex Sodium) 500 Mg Tablet. 1,000 Mg PO BID Baclofen 20 Mg Tablet 20 Mg PO QID Diagnosis: Problems: (1) Bipolar disorder, curr episode mixed, severe, with psychotic features (2) Anxiety disorder (3) Impulse control disorder TRUPTI CARVAJAL MD Nov 24, 2016 20:43
--- NOTE | 2016-11-25 03:57 | PN ---
DATE: 11/23/2016 This late entry 11/23/2016 covers elements not covered in my initial note of 11/23/2016. SUBJECTIVE: I met with the patient in the evening of 11/23/2016. She has attended group therapy, has been cooperative, a little anxious, dysphoric, obsessive at times. REVIEW OF SYSTEMS: Ambulation impaired, in Broda chair. No CV, , pulmonary, eye, ENT system symptoms on review. MENTAL STATUS EXAM: Oriented to herself and situation. Speech moderate latency, often responses monosyllabic, somewhat ruminative, again minimizes, denies any psychiatric problems whatsoever. Speech coherent, abstraction fair, computation impaired, language function intact, attention span short. Mood and affect somewhat withdrawn. LABORATORY DATA: Reviewed. IMPRESSION: Unchanged from initial note. Valproic acid level therapeutic at 82. PLAN: Continue Depakote 1000 mg b.i.d., Seroquel is 25 mg at bedtime, Luvox 25 mg at bedtime, may need to increase Luvox in due course. Review drug interactions, risk/benefit ratio favors no further change. TRUPTI CARVAJAL MD DR: ABBIE/juliana JOB#: [id number] / [id number]
[2016-11-25 05:57] VITALS: BP 117/77
[2016-11-25] MEDS: POLYETHYLENE GLYCOL 3350 17 GM PACKET. PO SCH (10:05)
[2016-11-25] MEDS: FAMOTIDINE 20 MG TABLET PO SCH (10:05)
[2016-11-25] MEDS: DIVALPROEX SODIUM 250 MG TABLET.DR. PO SCH ×2 (10:06→20:20)
[2016-11-25] MEDS: CEFPODOXIME PROXETIL 100 MG TABLET PO SCH ×2 (10:06→20:21)
[2016-11-25] MEDS: BACLOFEN 20 MG TABLET PO SCH ×4 (10:06→20:20)
[2016-11-25] MEDS: valACYclovir 500 MG TABLET. PO SCH (10:07)
[2016-11-25 15:52] VITALS: BP 108/60
[2016-11-25] MEDS: QUEtiapine 25 MG TABLET. PO SCH (20:21)
[2016-11-25] MEDS: SIMVASTATIN 5 MG TABLET. PO SCH (20:22)
--- NOTE | 2016-11-25 20:40 | PDOC ---
Exam Tim Demential Exam: Tim Note: Please also refer to the separate dictated note~for this date of service dictated separately.~Patient seen individually. Discussed the patient with Nursing staff reviewed the chart.~Reviewed interim history and current functioning. Reviewed vital signs,~Labs/ Radiology~and current medications noted below. Continue current treatment with the changes noted in the dictated addendum note Assessment: Vital Signs: Vital Signs Date Time Temp Pulse Resp B/P (MAP) Pulse Ox O2 Delivery O2 Flow Rate FiO2 11/25/16 15:52 97.4 86 20 108/60 (76) 98 Room Air I&O Intake and Output 11/26/16 07:00 Intake Total 720 ml Balance 720 ml Intake Oral 720 ml Current Medications: Meds: Current Medications Acetaminophen (Tylenol) 650 mg PRN Q6HRS PRN PO PAIN / TEMP; Start 11/19/16 at 18:15 Multi-Ingredient Ointment (Analgesic [place]) 1 william PRN QID PRN TP MUSCLE PAIN; Start 11/19/16 at 18:15 Al Hydroxide/Mg Hydroxide (Mylanta Plus Xs) 15 ml PRN AFTMEALHC PRN PO DYSPEPSIA; Start 11/19/16 at 18:15 Magnesium Hydroxide (Milk Of Magnesia) 2,400 mg PRN QHS PRN PO CONSTIPATION; Start 11/19/16 at 18:15 Influenza Virus Vaccine Quadrival (Fluarix Quad [id number] Syringe) 0.5 ml 1X ONCE VAX IM Last administered on 11/20/16 09:44; Start 11/20/16 at 09:00; Stop 11/20/16 at 09:01; Status DC Fluvoxamine Maleate (Luvox) 25 mg HS PO Last administered on 11/25/16 20:21; Start 11/19/16 at 21:00 Divalproex Sodium (Depakote) 1,000 mg BID PO Last administered on 11/25/16 20: 20; Start 11/19/16 at 21:00 Baclofen (Lioresal) 20 mg QID PO Last administered on 11/25/16 20:20; Start at 21:00 Famotidine (Pepcid) 20 mg DAILY PO Last administered on 11/25/16 10:05; Start 11/20/16 at 09:00 Polyethylene Glycol (miraLAX) 17 gm DAILY PO Last administered on 11/25/16 10: 05; Start 11/20/16 at 09:00 Valacyclovir HCl (Valtrex) 500 mg DAILY PO Last administered on 11/25/16 10:07 ; Start 11/20/16 at 09:00 Info (FLU VACCINE per PROTOCOL) 1 ea 1X ONCE MC ; Start 11/20/16 at 09:00; Stop 11/20/16 at 09:01; Status UNV Influenza Virus Vaccine Quadrival (Fluarix Quad [id number] Syringe) 0.5 ml ONCE ONCE VAX IM ; Start 11/20/16 at 09:00; Stop 11/20/16 at 10:40; Status DC Simvastatin (Zocor) 5 mg QHS PO Last administered on 11/25/16 20:22; Start at 21:00 Quetiapine Fumarate (SEROquel) 25 mg HS PO Last administered on 11/25/16 20:21 ; Start 11/21/16 at 21:00 Cefpodoxime Proxetil (Vantin) 200 mg BID PO Last administered on 11/25/16 20: 21; Start 11/24/16 at 21:00 Active Scripts Active Reported Famotidine 20 Mg Tablet 20 Mg PO DAILY Valacyclovir (Valacyclovir Hcl) 500 Mg Tablet 500 Mg PO DAILY Polyethylene Glycol 3350 255 Gm Powder 17 Gm PO DAILY Metoprolol Tartrate 25 Mg Tablet 12.5 Mg PO BID Fluvoxamine Maleate 25 Mg Tablet 25 Mg PO HS Depakote (Divalproex Sodium) 500 Mg Tablet. 1,000 Mg PO BID Baclofen 20 Mg Tablet 20 Mg PO QID Diagnosis: Problems: (1) Bipolar disorder, curr episode mixed, severe, with psychotic features (2) Anxiety disorder (3) Impulse control disorder TRUPTI CARVAJAL MD Nov 25, 2016 20:40
[2016-11-26 06:10] VITALS: BP 118/62
--- NOTE | 2016-11-26 06:47 | PN ---
DATE: 11/24/2016 PSYCHIATRIC PROGRESS NOTE This late entry of 11/24/2016, covers elements not covered in my initial note of 11/24/2016. I met with the patient evening of 11/24/2016. Overall, the patient has done reasonably well, gets a little apologetic, anxious. Reportedly, her half-sister called and she did reasonably well with this interaction. It is her blood sister who seems to trigger some of her reactions and we will discuss this staffing on 11/25/2016 with the family. She takes her medications whole, otherwise cooperative, needs help with her meals. No hallucinations noted. REVIEW OF SYSTEMS: Ambulation impaired, in a Broda chair. No CV, , pulmonary, eye, ENT system symptoms on review. MENTAL STATUS EXAM: Reasonably oriented. Speech is coherent, less pressured. Abstraction fair, computation impaired, attention span short, language function intact. Mood and affect showing improvement. LABORATORY DATA: Reviewed. IMPRESSION: Unchanged from my initial note. PLAN: Continue current psychotropics, reviewed drug interactions, risk/benefit ratio favors no change. TRUPTI CARVAJAL MD DR: ABBIE/juliana JOB#: [id number] / [id number]
[2016-11-26] MEDS: valACYclovir 500 MG TABLET. PO SCH (09:00)
[2016-11-26] MEDS: DIVALPROEX SODIUM 250 MG TABLET.DR. PO SCH ×2 (09:42→19:50)
[2016-11-26] MEDS: BACLOFEN 20 MG TABLET PO SCH ×4 (09:42→19:50)
[2016-11-26] MEDS: CEFPODOXIME PROXETIL 100 MG TABLET PO SCH ×2 (09:42→19:50)
[2016-11-26] MEDS: FAMOTIDINE 20 MG TABLET PO SCH (09:42)
[2016-11-26] MEDS: POLYETHYLENE GLYCOL 3350 17 GM PACKET. PO SCH (09:42)
[2016-11-26 16:17] VITALS: BP 97/66
[2016-11-26] MEDS: QUEtiapine 25 MG TABLET. PO SCH (19:50)
[2016-11-26] MEDS: SIMVASTATIN 5 MG TABLET. PO SCH (19:52)
--- NOTE | 2016-11-26 22:09 | PDOC ---
Exam Tim Demential Exam: Tim Note: Please also refer to the separate dictated note~for this date of service dictated separately.~Patient seen individually. Discussed the patient with Nursing staff reviewed the chart.~Reviewed interim history and current functioning. Reviewed vital signs,~Labs/ Radiology~and current medications noted below. Continue current treatment with the changes noted in the dictated addendum note Assessment: Vital Signs: Vital Signs Date Time Temp Pulse Resp B/P (MAP) Pulse Ox O2 Delivery O2 Flow Rate FiO2 11/26/16 16:17 98.3 68 20 97/66 (76) 98 11/25/16 15:52 Room Air I&O Intake and Output 11/27/16 07:00 Intake Total 1320 ml Balance 1320 ml Intake Oral 1320 ml # Voids 3 Current Medications: Meds: Current Medications Acetaminophen (Tylenol) 650 mg PRN Q6HRS PRN PO PAIN / TEMP; Start 11/19/16 at 18:15 Multi-Ingredient Ointment (Analgesic [place]) 1 william PRN QID PRN TP MUSCLE PAIN; Start 11/19/16 at 18:15 Al Hydroxide/Mg Hydroxide (Mylanta Plus Xs) 15 ml PRN AFTMEALHC PRN PO DYSPEPSIA; Start 11/19/16 at 18:15 Magnesium Hydroxide (Milk Of Magnesia) 2,400 mg PRN QHS PRN PO CONSTIPATION; Start 11/19/16 at 18:15 Influenza Virus Vaccine Quadrival (Fluarix Quad 2681-0608 Syringe) 0.5 ml 1X ONCE VAX IM Last administered on 11/20/16 09:44; Start 11/20/16 at 09:00; Stop 11/20/16 at 09:01; Status DC Fluvoxamine Maleate (Luvox) 25 mg HS PO Last administered on 11/26/16 19:50; Start 11/19/16 at 21:00 Divalproex Sodium (Depakote) 1,000 mg BID PO Last administered on 11/26/16 19: 50; Start 11/19/16 at 21:00 Baclofen (Lioresal) 20 mg QID PO Last administered on 11/26/16 19:50; Start at 21:00 Famotidine (Pepcid) 20 mg DAILY PO Last administered on 11/26/16 09:42; Start 11/20/16 at 09:00 Polyethylene Glycol (miraLAX) 17 gm DAILY PO Last administered on 11/26/16 09: 42; Start 11/20/16 at 09:00 Valacyclovir HCl (Valtrex) 500 mg DAILY PO Last administered on 11/26/16 09:00 ; Start 11/20/16 at 09:00 Info (FLU VACCINE per PROTOCOL) 1 ea 1X ONCE MC ; Start 11/20/16 at 09:00; Stop 11/20/16 at 09:01; Status UNV Influenza Virus Vaccine Quadrival (Fluarix Quad [id number] Syringe) 0.5 ml ONCE ONCE VAX IM ; Start 11/20/16 at 09:00; Stop 11/20/16 at 10:40; Status DC Simvastatin (Zocor) 5 mg QHS PO Last administered on 11/26/16 19:52; Start at 21:00 Quetiapine Fumarate (SEROquel) 25 mg HS PO Last administered on 11/26/16 19:50 ; Start 11/21/16 at 21:00 Cefpodoxime Proxetil (Vantin) 200 mg BID PO Last administered on 11/26/16 19: 50; Start 11/24/16 at 21:00 Active Scripts Active Reported Famotidine 20 Mg Tablet 20 Mg PO DAILY Valacyclovir (Valacyclovir Hcl) 500 Mg Tablet 500 Mg PO DAILY Polyethylene Glycol 3350 255 Gm Powder 17 Gm PO DAILY Metoprolol Tartrate 25 Mg Tablet 12.5 Mg PO BID Fluvoxamine Maleate 25 Mg Tablet 25 Mg PO HS Depakote (Divalproex Sodium) 500 Mg Tablet.dr 1,000 Mg PO BID Baclofen 20 Mg Tablet 20 Mg PO QID Diagnosis: Problems: (1) Bipolar disorder, curr episode mixed, severe, with psychotic features (2) Anxiety disorder (3) Impulse control disorder TRUPTI CARVAJAL MD Nov 26, 2016 22:08
--- NOTE | 2016-11-27 04:28 | PN ---
DATE: 11/25/2016 This is a late entry for 11/25/2016 and covers the elements not covered in my initial note of 11/25/2016. SUBJECTIVE: I met with the patient the evening of 11/25/2016 and staffed at a treatment team meeting with the entire team and the patient's sister, Arianne, who is her guardian and the other sister, Alycia, both attending the conference. We had a lengthy discussion about the patient's history of bipolar disorder, family history of bipolar disorder. The quasi-suicide attempt, which Arianne feels [place]. Family wondered if Alycia should visit the patient because typically she is a trigger for the patient's agitation, mood lability and we discussed pros and cons of this. I did address this individually with the patient as well on the evening of 11/25/2016 and she is agreeable to Alycia visiting. She slept 7 hours. REVIEW OF SYSTEMS: Ambulation impaired, in a Broda chair. No CV, , pulmonary, eye, ENT system symptoms on review. MENTAL STATUS EXAM: Reasonably oriented. Abstraction fair, computation impaired, language function intact, attention span short. Mood and affect remains somewhat anxious, labile at times, but overall improved. LABORATORY DATA: Reviewed. IMPRESSION: Unchanged from initial note. PLAN: Continue current psychotropics. Reviewed drug interactions. Risk/benefit ratio favors no further change for now, but we may need to increase Luvox for the obsessive thought processes if these are evident and causing problems. TRUPTI CARVAJAL MD DR: ABBIE/juliana JOB#: [id number] / [id number]
[2016-11-27 06:01] VITALS: BP 108/63
[2016-11-27 06:41] LABS: BASO % 1 % (0-3); EOS # 0.1 x10^3/uL (0.0-0.7); EOS % 2 % (0-3); HEMATOCRIT 40.3 % (36.0-47.0); HEMOGLOBIN 13.9 g/dL (12.0-15.5); LYMPH # 2.2 x10^3/uL (1.0-4.8); LYMPH % 48 % (24-48); MEAN CORPUSCULAR HEMOGLOBIN 32 pg (25-35); MEAN CORPUSCULAR HGB CONC 35 g/dL (31-37); MEAN CORPUSCULAR VOLUME 92 fL (79-100); MONO # 0.3 x10^3/uL (0.0-1.1); MONO % 7 % (0-9); NEUT % 42 % (31-73); PLATELET COUNT 152 x10^3/uL (140-400); RED BLOOD COUNT 4.36 x10^6/uL (3.50-5.40); RED CELL DISTRIBUTION WIDTH 13.1 % (11.5-14.5); WHITE BLOOD COUNT 4.6 x10^3/uL (4.0-11.0)
[2016-11-27 07:02] LABS: ALBUMIN 2.7 g/dL (3.4-5.0); ALK PHOS 55 U/L (46-116); ALT (SGPT) 9 U/L (14-59); ANION GAP 3 (6-14); AST (SGOT) < 5 U/L (15-37); BLOOD UREA NITROGEN 12 mg/dL (7-20); BUN/CREATININE RATIO 30 (6-20); CALCIUM 8.6 mg/dL (8.5-10.1); CARBON DIOXIDE 34 mmol/L (21-32); CHLORIDE 110 mmol/L (98-107); CREATININE 0.4 mg/dL (0.6-1.0); GFR 163.4; GLUCOSE 78 mg/dL (70-99); MAGNESIUM 2.1 mg/dL (1.8-2.4); POTASSIUM 3.9 mmol/L (3.5-5.1); SODIUM 147 mmol/L (136-145); TOTAL PROTEIN 5.5 g/dL (6.4-8.2)
[2016-11-27 07:34] LABS: TOTAL BILIRUBIN < 0.1 mg/dL (0.2-1.0)
[2016-11-27 07:37] LABS: VAL ACID 94 mcg/mL (50-100)
[2016-11-27] MEDS: valACYclovir 500 MG TABLET. PO SCH (08:28)
[2016-11-27] MEDS: DIVALPROEX SODIUM 250 MG TABLET.DR. PO SCH ×2 (08:28→19:35)
[2016-11-27] MEDS: CEFPODOXIME PROXETIL 100 MG TABLET PO SCH ×2 (08:29→19:35)
[2016-11-27] MEDS: FAMOTIDINE 20 MG TABLET PO SCH (08:29)
[2016-11-27] MEDS: BACLOFEN 20 MG TABLET PO SCH ×4 (08:29→19:35)
[2016-11-27] MEDS: POLYETHYLENE GLYCOL 3350 17 GM PACKET. PO SCH (08:29)
[2016-11-27 17:00] VITALS: BP 113/73
[2016-11-27] MEDS: SIMVASTATIN 5 MG TABLET. PO SCH (19:35)
[2016-11-27] MEDS: QUEtiapine 25 MG TABLET. PO SCH (19:35)
--- NOTE | 2016-11-27 22:59 | PDOC ---
Exam Tim Demential Exam: Tim Note: Please also refer to the separate dictated note~for this date of service dictated separately.~Patient seen individually. Discussed the patient with Nursing staff reviewed the chart.~Reviewed interim history and current functioning. Reviewed vital signs,~Labs/ Radiology~and current medications noted below. Continue current treatment with the changes noted in the dictated addendum note Assessment: Vital Signs: Vital Signs Date Time Temp Pulse Resp B/P (MAP) Pulse Ox O2 Delivery O2 Flow Rate FiO2 11/27/16 17:00 97.5 80 18 113/73 (86) 96 11/27/16 06:01 Room Air I&O Intake and Output 11/28/16 07:00 Intake Total 1440 ml Balance 1440 ml Intake Oral 1440 ml # Voids 4 Labs: Laboratory Tests Test 11/27/16 06:04 White Blood Count 4.6 x10^3/uL (4.0-11.0) Red Blood Count 4.36 x10^6/uL (3.50-5.40) Hemoglobin 13.9 g/dL (12.0-15.5) Hematocrit 40.3 % (36.0-47.0) Mean Corpuscular Volume 92 fL (79-100) Mean Corpuscular Hemoglobin 32 pg (25-35) Mean Corpuscular Hemoglobin Concent 35 g/dL (31-37) Red Cell Distribution Width 13.1 % (11.5-14.5) Platelet Count 152 x10^3/uL (140-400) Neutrophils (%) (Auto) 42 % (31-73) Lymphocytes (%) (Auto) 48 % (24-48) Monocytes (%) (Auto) 7 % (0-9) Eosinophils (%) (Auto) 2 % (0-3) Basophils (%) (Auto) 1 % (0-3) Neutrophils # (Auto) 2.0 x10^3uL (1.8-7.7) Lymphocytes # (Auto) 2.2 x10^3/uL (1.0-4.8) Monocytes # (Auto) 0.3 x10^3/uL (0.0-1.1) Eosinophils # (Auto) 0.1 x10^3/uL (0.0-0.7) Basophils # (Auto) 0.0 x10^3/uL (0.0-0.2) Sodium Level 147 mmol/L (136-145) H Potassium Level 3.9 mmol/L (3.5-5.1) Chloride Level 110 mmol/L (98-107) H Carbon Dioxide Level 34 mmol/L (21-32) H Anion Gap 3 (6-14) L Blood Urea Nitrogen 12 mg/dL (7-20) Creatinine 0.4 mg/dL (0.6-1.0) L Estimated GFR (Cockcroft-Gault) 163.4 BUN/Creatinine Ratio 30 (6-20) H Glucose Level 78 mg/dL (70-99) Calcium Level 8.6 mg/dL (8.5-10.1) Magnesium Level 2.1 mg/dL (1.8-2.4) Total Bilirubin < 0.1 mg/dL (0.2-1.0) L Aspartate Amino Transferase (AST) < 5 U/L (15-37) L Alanine Aminotransferase (ALT) 9 U/L (14-59) L Alkaline Phosphatase 55 U/L (46-116) Total Protein 5.5 g/dL (6.4-8.2) L Albumin 2.7 g/dL (3.4-5.0) L Albumin/Globulin Ratio 1.0 (1.0-1.7) Valproic Acid Level 94 mcg/mL (50-100) Valproic Acid Last Dose Date 11/26/16 Valproic Acid Last Dose Time 2100 Current Medications: Meds: Current Medications Acetaminophen (Tylenol) 650 mg PRN Q6HRS PRN PO PAIN / TEMP; Start 11/19/16 at 18:15 Multi-Ingredient Ointment (Analgesic [place]) 1 william PRN QID PRN TP MUSCLE PAIN; Start 11/19/16 at 18:15 Al Hydroxide/Mg Hydroxide (Mylanta Plus Xs) 15 ml PRN AFTMEALHC PRN PO DYSPEPSIA; Start 11/19/16 at 18:15 Magnesium Hydroxide (Milk Of Magnesia) 2,400 mg PRN QHS PRN PO CONSTIPATION; Start 11/19/16 at 18:15 Influenza Virus Vaccine Quadrival (Fluarix Quad [id number] Syringe) 0.5 ml 1X ONCE VAX IM Last administered on 11/20/16t 09:44; Start 11/20/16 at 09:00; Stop 11/20/16 at 09:01; Status DC Fluvoxamine Maleate (Luvox) 25 mg HS PO Last administered on 11/27/16 19:35; Start 11/19/16 at 21:00 Divalproex Sodium (Depakote) 1,000 mg BID PO Last administered on 11/27/16 19: 35; Start 11/19/16 at 21:00 Baclofen (Lioresal) 20 mg QID PO Last administered on 11/27/16 19:35; Start at 21:00 Famotidine (Pepcid) 20 mg DAILY PO Last administered on 11/27/16 08:29; Start 11/20/16 at 09:00 Polyethylene Glycol (miraLAX) 17 gm DAILY PO Last administered on 11/27/16 08: 29; Start 11/20/16 at 09:00 Valacyclovir HCl (Valtrex) 500 mg DAILY PO Last administered on 11/27/16 08:28 ; Start 11/20/16 at 09:00 Info (FLU VACCINE per PROTOCOL) 1 ea 1X ONCE MC ; Start 11/20/16 at 09:00; Stop 11/20/16 at 09:01; Status UNV Influenza Virus Vaccine Quadrival (Fluarix Quad [id number] Syringe) 0.5 ml ONCE ONCE VAX IM ; Start 11/20/16 at 09:00; Stop 11/20/16 at 10:40; Status DC Simvastatin (Zocor) 5 mg QHS PO Last administered on 11/27/16 19:35; Start at 21:00 Quetiapine Fumarate (SEROquel) 25 mg HS PO Last administered on 11/27/16 19:35 ; Start 11/21/16 at 21:00 Cefpodoxime Proxetil (Vantin) 200 mg BID PO Last administered on 11/27/16 19: 35; Start 11/24/16 at 21:00 Active Scripts Active Reported Famotidine 20 Mg Tablet 20 Mg PO DAILY Valacyclovir (Valacyclovir Hcl) 500 Mg Tablet 500 Mg PO DAILY Polyethylene Glycol 3350 255 Gm Powder 17 Gm PO DAILY Metoprolol Tartrate 25 Mg Tablet 12.5 Mg PO BID Fluvoxamine Maleate 25 Mg Tablet 25 Mg PO HS Depakote (Divalproex Sodium) 500 Mg Tablet.dr 1,000 Mg PO BID Baclofen 20 Mg Tablet 20 Mg PO QID Diagnosis: Problems: (1) Bipolar disorder, curr episode mixed, severe, with psychotic features (2) Anxiety disorder (3) Mild cognitive disorder (4) Impulse control disorder TRUPTI CARVAJAL MD Nov 27, 2016 22:59
--- NOTE | 2016-11-28 00:10 | PN ---
DATE: 11/26/2016 This is late entry for 11/26/2016, covers the elements not covered in my initial note of 11/26/2016. SUBJECTIVE: Per nursing report, the patient has been pocking food in her mouth and has been changed to pureed diet. We will check labs this morning of 11/27/2016. Otherwise, somewhat withdrawn. No clear psychotic symptoms noted. REVIEW OF SYSTEMS: In Broda chair, impaired ambulation. No CV, , pulmonary, eye, ENT system symptoms on review. MENTAL STATUS EXAM: Oriented to herself and situation. Speech moderate latency, often responses monosyllabic. Abstraction fair, computation impaired, language function intact, attention span short, mood and affect withdrawn. No suicidal or homicidal ideation. LABORATORY DATA: Reviewed. IMPRESSION: Unchanged from initial note. PLAN: Continue current psychotropics, reviewed drug interactions risk/benefit ratio favors no further change. MAN Derrick CARVAJAL MD DR: ABBIE/juliana JOB#: [id number] / [id number]
[2016-11-28 06:00] VITALS: BP 107/67
[2016-11-28] MEDS: BACLOFEN 20 MG TABLET PO SCH ×4 (08:29→19:37)
[2016-11-28] MEDS: valACYclovir 500 MG TABLET. PO SCH (08:29)
[2016-11-28] MEDS: POLYETHYLENE GLYCOL 3350 17 GM PACKET. PO SCH (08:29)
[2016-11-28] MEDS: CEFPODOXIME PROXETIL 100 MG TABLET PO SCH ×2 (08:30→19:37)
[2016-11-28] MEDS: DIVALPROEX SODIUM 250 MG TABLET.DR. PO SCH ×2 (08:30→19:38)
[2016-11-28] MEDS: FAMOTIDINE 20 MG TABLET PO SCH (08:30)
[2016-11-28 16:34] VITALS: BP 114/85
[2016-11-28] MEDS: SIMVASTATIN 5 MG TABLET. PO SCH (19:37)
[2016-11-28] MEDS: QUEtiapine 50 MG TABLET. PO SCH (19:43)
--- NOTE | 2016-11-28 21:08 | PDOC ---
Exam Tim Demential Exam: Tim Note: Please also refer to the separate dictated note~for this date of service dictated separately.~Patient seen individually. Discussed the patient with Nursing staff reviewed the chart.~Reviewed interim history and current functioning. Reviewed vital signs,~Labs/ Radiology~and current medications noted below. Continue current treatment with the changes noted in the dictated addendum note Assessment: Vital Signs: Vital Signs Date Time Temp Pulse Resp B/P (MAP) Pulse Ox O2 Delivery O2 Flow Rate FiO2 11/28/16 16:34 98.3 90 20 114/85 (95) 96 11/28/16 06:00 Room Air I&O Intake and Output 11/29/16 07:00 Intake Total 1320 ml Balance 1320 ml Intake Oral 1320 ml # Bowel Movements 1 Current Medications: Meds: Current Medications Acetaminophen (Tylenol) 650 mg PRN Q6HRS PRN PO PAIN / TEMP; Start 11/19/16 at 18:15 Multi-Ingredient Ointment (Analgesic [place]) 1 william PRN QID PRN TP MUSCLE PAIN; Start 11/19/16 at 18:15 Al Hydroxide/Mg Hydroxide (Mylanta Plus Xs) 15 ml PRN AFTMEALHC PRN PO DYSPEPSIA; Start 11/19/16 at 18:15 Magnesium Hydroxide (Milk Of Magnesia) 2,400 mg PRN QHS PRN PO CONSTIPATION; Start 11/19/16 at 18:15 Influenza Virus Vaccine Quadrival (Fluarix Quad 2791-6522 Syringe) 0.5 ml 1X ONCE VAX IM Last administered on 11/20/16 09:44; Start 11/20/16 at 09:00; Stop 11/20/16 at 09:01; Status DC Fluvoxamine Maleate (Luvox) 25 mg HS PO Last administered on 11/28/16 19:37; Start 11/19/16 at 21:00 Divalproex Sodium (Depakote) 1,000 mg BID PO Last administered on 11/28/16 19: 38; Start 11/19/16 at 21:00 Baclofen (Lioresal) 20 mg QID PO Last administered on 11/28/16 19:37; Start at 21:00 Famotidine (Pepcid) 20 mg DAILY PO Last administered on 11/28/16 08:30; Start 11/20/16 at 09:00 Polyethylene Glycol (miraLAX) 17 gm DAILY PO Last administered on 11/28/16 08: 29; Start 11/20/16 at 09:00 Valacyclovir HCl (Valtrex) 500 mg DAILY PO Last administered on 11/28/16 08:29 ; Start 11/20/16 at 09:00 Info (FLU VACCINE per PROTOCOL) 1 ea 1X ONCE MC ; Start 11/20/16 at 09:00; Stop 11/20/16 at 09:01; Status UNV Influenza Virus Vaccine Quadrival (Fluarix Quad [id number] Syringe) 0.5 ml ONCE ONCE VAX IM ; Start 11/20/16 at 09:00; Stop 11/20/16 at 10:40; Status DC Simvastatin (Zocor) 5 mg QHS PO Last administered on 11/28/16 19:37; Start at 21:00 Quetiapine Fumarate (SEROquel) 25 mg HS PO Last administered on 11/27/16 19:35 ; Start 11/21/16 at 21:00; Stop 11/28/16 at 17:14; Status DC Cefpodoxime Proxetil (Vantin) 200 mg BID PO Last administered on 11/28/16 19: 37; Start 11/24/16 at 21:00 Quetiapine Fumarate (SEROquel) 50 mg HS PO Last administered on 11/28/16 19:43 ; Start 11/28/16 at 21:00 Active Scripts Active Reported Famotidine 20 Mg Tablet 20 Mg PO DAILY Valacyclovir (Valacyclovir Hcl) 500 Mg Tablet 500 Mg PO DAILY Polyethylene Glycol 3350 255 Gm Powder 17 Gm PO DAILY Metoprolol Tartrate 25 Mg Tablet 12.5 Mg PO BID Fluvoxamine Maleate 25 Mg Tablet 25 Mg PO HS Depakote (Divalproex Sodium) 500 Mg Tablet. 1,000 Mg PO BID Baclofen 20 Mg Tablet 20 Mg PO QID Diagnosis: Problems: (1) Bipolar disorder, curr episode mixed, severe, with psychotic features (2) Anxiety disorder (3) Mild cognitive disorder (4) Impulse control disorder TRUPTI CARVAJAL MD Nov 28, 2016 21:08
--- NOTE | 2016-11-29 03:26 | PN ---
DATE: 11/27/2016 This late entry 11/27/2016 covers elements not covered in my initial note of 11/27/2016. SUBJECTIVE: I met with the patient in the evening of 11/27/2016. Overall, per nursing report, she has been calm, compliant, gets little stand at times, but redirects. REVIEW OF SYSTEMS: Ambulation impaired, in a Broda chair. No CV, , pulmonary, eye, ENT system symptoms on review. MENTAL STATUS EXAM: Reasonably oriented. Speech has some latency, coherent. Abstraction fair, computation impaired, language function intact. Mood and affect are improved. IMPRESSION: Unchanged from initial note. PLAN: Continue current psychotropics mentioned in my initial note. Increase Seroquel to 50 mg p.o. at bedtime. Adjust further as clinically indicated. MAN Derrick CARVAJAL MD DR: ABBIE/juliana JOB#: [id number] / [id number]
[2016-11-29 05:45] VITALS: BP 98/68
[2016-11-29] MEDS: CEFPODOXIME PROXETIL 100 MG TABLET PO SCH ×2 (08:38→19:47)
[2016-11-29] MEDS: POLYETHYLENE GLYCOL 3350 17 GM PACKET. PO SCH (08:38)
[2016-11-29] MEDS: valACYclovir 500 MG TABLET. PO SCH (08:38)
[2016-11-29] MEDS: BACLOFEN 20 MG TABLET PO SCH ×4 (08:38→19:48)
[2016-11-29] MEDS: FAMOTIDINE 20 MG TABLET PO SCH (08:38)
[2016-11-29] MEDS: DIVALPROEX SODIUM 250 MG TABLET.DR. PO SCH ×2 (08:38→19:47)
[2016-11-29 16:46] VITALS: BP 106/63
[2016-11-29] MEDS: QUEtiapine 50 MG TABLET. PO SCH (19:47)
[2016-11-29] MEDS: SIMVASTATIN 5 MG TABLET. PO SCH (19:48)
--- NOTE | 2016-11-29 21:02 | PDOC ---
Exam Tim Demential Exam: Tim Note: Please also refer to the separate dictated note~for this date of service dictated separately.~Patient seen individually. Discussed the patient with Nursing staff reviewed the chart.~Reviewed interim history and current functioning. Reviewed vital signs,~Labs/ Radiology~and current medications noted below. Continue current treatment with the changes noted in the dictated addendum note Assessment: Vital Signs: Vital Signs Date Time Temp Pulse Resp B/P (MAP) Pulse Ox O2 Delivery O2 Flow Rate FiO2 11/29/16 16:46 98.6 75 18 106/63 (77) 95 11/28/16 06:00 Room Air I&O Intake and Output 11/30/16 07:00 Intake Total 1680 ml Balance 1680 ml Intake Oral 1680 ml # Bowel Movements 1 Current Medications: Meds: Current Medications Acetaminophen (Tylenol) 650 mg PRN Q6HRS PRN PO PAIN / TEMP; Start 11/19/16 at 18:15 Multi-Ingredient Ointment (Analgesic [place]) 1 william PRN QID PRN TP MUSCLE PAIN; Start 11/19/16 at 18:15 Al Hydroxide/Mg Hydroxide (Mylanta Plus Xs) 15 ml PRN AFTMEALHC PRN PO DYSPEPSIA; Start 11/19/16 at 18:15 Magnesium Hydroxide (Milk Of Magnesia) 2,400 mg PRN QHS PRN PO CONSTIPATION; Start 11/19/16 at 18:15 Influenza Virus Vaccine Quadrival (Fluarix Quad [id number] Syringe) 0.5 ml 1X ONCE VAX IM Last administered on 11/20/16 09:44; Start 11/20/16 at 09:00; Stop 11/20/16 at 09:01; Status DC Fluvoxamine Maleate (Luvox) 25 mg HS PO Last administered on 11/29/16 19:47; Start 11/19/16 at 21:00 Divalproex Sodium (Depakote) 1,000 mg BID PO Last administered on 11/29/16 19: 47; Start 11/19/16 at 21:00 Baclofen (Lioresal) 20 mg QID PO Last administered on 11/29/16 19:48; Start at 21:00 Famotidine (Pepcid) 20 mg DAILY PO Last administered on 11/29/16 08:38; Start 11/20/16 at 09:00 Polyethylene Glycol (miraLAX) 17 gm DAILY PO Last administered on 11/29/16 08: 38; Start 11/20/16 at 09:00 Valacyclovir HCl (Valtrex) 500 mg DAILY PO Last administered on 11/29/16 08:38 ; Start 11/20/16 at 09:00 Info (FLU VACCINE per PROTOCOL) 1 ea 1X ONCE MC ; Start 11/20/16 at 09:00; Stop 11/20/16 at 09:01; Status UNV Influenza Virus Vaccine Quadrival (Fluarix Quad [id number] Syringe) 0.5 ml ONCE ONCE VAX IM ; Start 11/20/16 at 09:00; Stop 11/20/16 at 10:40; Status DC Simvastatin (Zocor) 5 mg QHS PO Last administered on 11/29/16 19:48; Start at 21:00 Quetiapine Fumarate (SEROquel) 25 mg HS PO Last administered on 11/27/16 19:35 ; Start 11/21/16 at 21:00; Stop 11/28/16 at 17:14; Status DC Cefpodoxime Proxetil (Vantin) 200 mg BID PO Last administered on 11/29/16 19: 47; Start 11/24/16 at 21:00; Stop 11/30/16 at 09:00 Quetiapine Fumarate (SEROquel) 50 mg HS PO Last administered on 11/29/16 19:47 ; Start 11/28/16 at 21:00 Active Scripts Active Reported Famotidine 20 Mg Tablet 20 Mg PO DAILY Valacyclovir (Valacyclovir Hcl) 500 Mg Tablet 500 Mg PO DAILY Polyethylene Glycol 3350 255 Gm Powder 17 Gm PO DAILY Metoprolol Tartrate 25 Mg Tablet 12.5 Mg PO BID Fluvoxamine Maleate 25 Mg Tablet 25 Mg PO HS Depakote (Divalproex Sodium) 500 Mg Tablet. 1,000 Mg PO BID Baclofen 20 Mg Tablet 20 Mg PO QID Diagnosis: Problems: (1) Bipolar disorder, curr episode mixed, severe, with psychotic features (2) Anxiety disorder (3) Mild cognitive disorder (4) Impulse control disorder TRUPTI CARVAJAL MD Nov 29, 2016 21:02
[2016-11-30 05:48] VITALS: BP 100/68
[2016-11-30] MEDS: valACYclovir 500 MG TABLET. PO SCH (08:46)
[2016-11-30] MEDS: FAMOTIDINE 20 MG TABLET PO SCH (08:46)
[2016-11-30] MEDS: POLYETHYLENE GLYCOL 3350 17 GM PACKET. PO SCH (08:46)
[2016-11-30] MEDS: DIVALPROEX SODIUM 250 MG TABLET.DR. PO SCH ×2 (08:46→19:56)
[2016-11-30] MEDS: BACLOFEN 20 MG TABLET PO SCH ×4 (08:46→19:56)
[2016-11-30] MEDS: CEFPODOXIME PROXETIL 100 MG TABLET PO SCH (08:46)
--- NOTE | 2016-11-30 14:17 | PN ---
DATE: 11/28/2016 This late entry 11/28/2016 covers elements not covered in my initial note of 11/28/2016. I met with the patient in the evening of 11/28/2016. Overall, the patient is fairly cooperative on the unit, somewhat withdrawn and anxious at times. REVIEW OF SYSTEMS: Ambulation impaired, in Broda chair. No CV, , pulmonary, eye system symptoms on review. MENTAL STATUS EXAM: Reasonably oriented. Speech has some latency, coherent, often responses monosyllabic. Abstraction fair, computation impaired, language function intact, attention span short. Mood and affect somewhat anxious at times. LABORATORY DATA: Reviewed. IMPRESSION: Unchanged from initial note. PLAN: Seroquel was increased to 50 mg at bedtime, has atypical mood stabilizer. Maintain Luvox and Depakote at current dosage. Reviewed drug interactions, risk/benefit ratio favors no further change at this time. TRUPTI CARVAJAL MD DR: ABBIE/juliana JOB#: [id number] / [id number]
[2016-11-30 15:53] VITALS: BP 101/66
[2016-11-30] MEDS: QUEtiapine 50 MG TABLET. PO SCH (19:56)
[2016-11-30] MEDS: SIMVASTATIN 5 MG TABLET. PO SCH (19:56)
--- NOTE | 2016-11-30 20:45 | PDOC ---
Exam Tim Demential Exam: Tim Note: Please also refer to the separate dictated note~for this date of service dictated separately.~Patient seen individually. Discussed the patient with Nursing staff reviewed the chart.~Reviewed interim history and current functioning. Reviewed vital signs,~Labs/ Radiology~and current medications noted below. Continue current treatment with the changes noted in the dictated addendum note Assessment: Vital Signs: Vital Signs Date Time Temp Pulse Resp B/P (MAP) Pulse Ox O2 Delivery O2 Flow Rate FiO2 11/30/16 15:53 97.8 75 18 101/66 (78) 97 11/30/16 05:48 Room Air I&O Intake and Output 12/01/16 07:00 Intake Total 1200 ml Balance 1200 ml Intake Oral 1200 ml # Voids 1 # Bowel Movements 1 Current Medications: Meds: Current Medications Acetaminophen (Tylenol) 650 mg PRN Q6HRS PRN PO PAIN / TEMP; Start 11/19/16 at 18:15 Multi-Ingredient Ointment (Analgesic [place]) 1 william PRN QID PRN TP MUSCLE PAIN; Start 11/19/16 at 18:15 Al Hydroxide/Mg Hydroxide (Mylanta Plus Xs) 15 ml PRN AFTMEALHC PRN PO DYSPEPSIA; Start 11/19/16 at 18:15 Magnesium Hydroxide (Milk Of Magnesia) 2,400 mg PRN QHS PRN PO CONSTIPATION Last administered on 11/30/16 08:46; Start 11/19/16 at 18:15 Influenza Virus Vaccine Quadrival (Fluarix Quad [id number] Syringe) 0.5 ml 1X ONCE VAX IM Last administered on 11/20/16 09:44; Start 11/20/16 at 09:00; Stop 11/20/16 at 09:01; Status DC Fluvoxamine Maleate (Luvox) 25 mg HS PO Last administered on 11/30/16 19:56; Start 11/19/16 at 21:00 Divalproex Sodium (Depakote) 1,000 mg BID PO Last administered on 11/30/16 19: 56; Start 11/19/16 at 21:00 Baclofen (Lioresal) 20 mg QID PO Last administered on 11/30/16 19:56; Start at 21:00 Famotidine (Pepcid) 20 mg DAILY PO Last administered on 11/30/16 08:46; Start 11/20/16 at 09:00 Polyethylene Glycol (miraLAX) 17 gm DAILY PO Last administered on 11/30/16 08: 46; Start 11/20/16 at 09:00 Valacyclovir HCl (Valtrex) 500 mg DAILY PO Last administered on 11/30/16 08:46 ; Start 11/20/16 at 09:00 Info (FLU VACCINE per PROTOCOL) 1 ea 1X ONCE MC ; Start 11/20/16 at 09:00; Stop 11/20/16 at 09:01; Status UNV Influenza Virus Vaccine Quadrival (Fluarix Quad [id number] Syringe) 0.5 ml ONCE ONCE VAX IM ; Start 11/20/16 at 09:00; Stop 11/20/16 at 10:40; Status DC Simvastatin (Zocor) 5 mg QHS PO Last administered on 11/30/16 19:56; Start at 21:00 Quetiapine Fumarate (SEROquel) 25 mg HS PO Last administered on 11/27/16 19:35 ; Start 11/21/16 at 21:00; Stop 11/28/16 at 17:14; Status DC Cefpodoxime Proxetil (Vantin) 200 mg BID PO Last administered on 11/30/16 08: 46; Start 11/24/16 at 21:00; Stop 11/30/16 at 09:00; Status DC Quetiapine Fumarate (SEROquel) 50 mg HS PO Last administered on 11/30/16 19:56 ; Start 11/28/16 at 21:00 Active Scripts Active Reported Famotidine 20 Mg Tablet 20 Mg PO DAILY Valacyclovir (Valacyclovir Hcl) 500 Mg Tablet 500 Mg PO DAILY Polyethylene Glycol 3350 255 Gm Powder 17 Gm PO DAILY Metoprolol Tartrate 25 Mg Tablet 12.5 Mg PO BID Fluvoxamine Maleate 25 Mg Tablet 25 Mg PO HS Depakote (Divalproex Sodium) 500 Mg Tablet. 1,000 Mg PO BID Baclofen 20 Mg Tablet 20 Mg PO QID Diagnosis: Problems: (1) Bipolar disorder, curr episode mixed, severe, with psychotic features (2) Anxiety disorder (3) Mild cognitive disorder (4) Impulse control disorder TRUPTI CARVAJAL MD Nov 30, 2016 20:45
[2016-12-01 06:21] VITALS: BP 95/59
[2016-12-01] MEDS: FAMOTIDINE 20 MG TABLET PO SCH (08:53)
[2016-12-01] MEDS: BACLOFEN 20 MG TABLET PO SCH ×4 (08:53→20:36)
[2016-12-01] MEDS: valACYclovir 500 MG TABLET. PO SCH (08:53)
[2016-12-01] MEDS: DIVALPROEX SODIUM 250 MG TABLET.DR. PO SCH ×2 (08:53→20:37)
[2016-12-01] MEDS: POLYETHYLENE GLYCOL 3350 17 GM PACKET. PO SCH (08:53)
--- NOTE | 2016-12-01 09:30 | PN ---
DATE: 11/29/2016 This late entry 11/29/2016 covers elements not covered in my initial note of 11/29/2016. I met with the patient evening of 11/29/2016. Overall, the patient has been fairly cooperative, calm. REVIEW OF SYSTEMS: Ambulation impaired, in Broda chair. No CV, , pulmonary, eye system symptoms on review. MENTAL STATUS EXAM: Oriented to herself and situation. Speech, moderate latency, often responses monosyllabic. Abstraction fair, computation impaired, language function intact, attention span short. Mood and affect somewhat withdrawn. LABORATORY DATA: Reviewed. IMPRESSION: Unchanged from initial note. PLAN: Continue current psychotropics. Reviewed drug interactions, risk/benefit ratio favors no further change. Her UTI is being treated and resolution of this would help with her mood stability as well. MAN Derrick CARVAJAL MD DR: ABBIE/juliana JOB#: [id number] / [id number]
[2016-12-01 16:31] VITALS: BP 112/69
[2016-12-01] MEDS: QUEtiapine 50 MG TABLET. PO SCH (20:36)
[2016-12-01] MEDS: SIMVASTATIN 5 MG TABLET. PO SCH (20:37)
--- NOTE | 2016-12-01 20:56 | PDOC ---
Exam Tim Demential Exam: Tim Note: Please also refer to the separate dictated note~for this date of service dictated separately.~Patient seen individually. Discussed the patient with Nursing staff reviewed the chart.~Reviewed interim history and current functioning. Reviewed vital signs,~Labs/ Radiology~and current medications noted below. Continue current treatment with the changes noted in the dictated addendum note Assessment: Vital Signs: Vital Signs Date Time Temp Pulse Resp B/P (MAP) Pulse Ox O2 Delivery O2 Flow Rate FiO2 12/01/16 16:31 97.7 91 18 112/69 (83) 94 11/30/16 05:48 Room Air I&O Intake and Output 12/02/16 07:00 Intake Total 960 ml Balance 960 ml Intake Oral 960 ml Current Medications: Meds: Current Medications Acetaminophen (Tylenol) 650 mg PRN Q6HRS PRN PO PAIN / TEMP; Start 11/19/16 at 18:15 Multi-Ingredient Ointment (Analgesic [place]) 1 william PRN QID PRN TP MUSCLE PAIN; Start 11/19/16 at 18:15 Al Hydroxide/Mg Hydroxide (Mylanta Plus Xs) 15 ml PRN AFTMEALHC PRN PO DYSPEPSIA; Start 11/19/16 at 18:15 Magnesium Hydroxide (Milk Of Magnesia) 2,400 mg PRN QHS PRN PO CONSTIPATION Last administered on 11/30/16 08:46; Start 11/19/16 at 18:15 Influenza Virus Vaccine Quadrival (Fluarix Quad 3002-7506 Syringe) 0.5 ml 1X ONCE VAX IM Last administered on 11/20/16 09:44; Start 11/20/16 at 09:00; Stop 11/20/16 at 09:01; Status DC Fluvoxamine Maleate (Luvox) 25 mg HS PO Last administered on 12/01/16 20:36; Start 11/19/16 at 21:00 Divalproex Sodium (Depakote) 1,000 mg BID PO Last administered on 12/01/16 20: 37; Start 11/19/16 at 21:00 Baclofen (Lioresal) 20 mg QID PO Last administered on 12/01/16 20:36; Start at 21:00 Famotidine (Pepcid) 20 mg DAILY PO Last administered on 12/01/16 08:53; Start 11/20/16 at 09:00 Polyethylene Glycol (miraLAX) 17 gm DAILY PO Last administered on 12/01/16 08: 53; Start 11/20/16 at 09:00 Valacyclovir HCl (Valtrex) 500 mg DAILY PO Last administered on 12/01/16 08:53 ; Start 11/20/16 at 09:00 Info (FLU VACCINE per PROTOCOL) 1 ea 1X ONCE MC ; Start 11/20/16 at 09:00; Stop 11/20/16 at 09:01; Status UNV Influenza Virus Vaccine Quadrival (Fluarix Quad 1397-9822 Syringe) 0.5 ml ONCE ONCE VAX IM ; Start 11/20/16 at 09:00; Stop 11/20/16 at 10:40; Status DC Simvastatin (Zocor) 5 mg QHS PO Last administered on 12/01/16 20:37; Start at 21:00 Quetiapine Fumarate (SEROquel) 25 mg HS PO Last administered on 11/27/16 19:35 ; Start 11/21/16 at 21:00; Stop 11/28/16 at 17:14; Status DC Cefpodoxime Proxetil (Vantin) 200 mg BID PO Last administered on 11/30/16 08: 46; Start 11/24/16 at 21:00; Stop 11/30/16 at 09:00; Status DC Quetiapine Fumarate (SEROquel) 50 mg HS PO Last administered on 12/01/16 20:36 ; Start 11/28/16 at 21:00 Active Scripts Active Reported Famotidine 20 Mg Tablet 20 Mg PO DAILY Valacyclovir (Valacyclovir Hcl) 500 Mg Tablet 500 Mg PO DAILY Polyethylene Glycol 3350 255 Gm Powder 17 Gm PO DAILY Metoprolol Tartrate 25 Mg Tablet 12.5 Mg PO BID Fluvoxamine Maleate 25 Mg Tablet 25 Mg PO HS Depakote (Divalproex Sodium) 500 Mg Tablet. 1,000 Mg PO BID Baclofen 20 Mg Tablet 20 Mg PO QID Diagnosis: Problems: (1) Bipolar disorder, curr episode mixed, severe, with psychotic features (2) Anxiety disorder (3) Mild cognitive disorder (4) Impulse control disorder TRUPTI CARVAJAL MD Dec 01, 2016 20:56
--- NOTE | 2016-12-01 22:53 | PN ---
DATE: 11/30/2016 This is late entry for 11/30/2016 covers elements not covered in my initial note of 11/30/2016. SUBJECTIVE: I met with the patient in the evening of 11/30/2016. Overall, the patient has had a better day, still gets a little anxious, labile at times, but better than before, compliant with medications. REVIEW OF SYSTEMS: Ambulation impaired, in a Broda chair. No CV, , pulmonary, eye, ENT system symptoms on review. As I met with her, she had many questions about evangelical and whether I believed in God and was telling me things she read in the Bible. REVIEW OF SYSTEMS: Ambulation impaired, in a Broda chair. No CV, , pulmonary, eye, ENT system symptoms on review. MENTAL STATUS EXAM: Oriented to herself and situation. Speech coherent, abstraction fair, computation impaired, language function intact, attention span short. Mood and affect, lability is improved. LABORATORY DATA: Reviewed. IMPRESSION: Unchanged from initial note. PLAN: Continue current psychotropics mentioned in my initial note. Depakote, Luvox, Seroquel. Valproic acid level is therapeutic at 94. Reviewed drug interactions. Risk/benefit ratio favors no further change. Transition to a lower level of care later this week. MAN Derrick CARVAJAL MD DR: ABBIE/juliana JOB#: [id number] / [id number]
[2016-12-02 06:23] VITALS: BP 118/66
[2016-12-02] MEDS: valACYclovir 500 MG TABLET. PO SCH (09:26)
[2016-12-02] MEDS: FAMOTIDINE 20 MG TABLET PO SCH (09:26)
[2016-12-02] MEDS: DIVALPROEX SODIUM 250 MG TABLET.DR. PO SCH ×2 (09:26→19:10)
[2016-12-02] MEDS: BACLOFEN 20 MG TABLET PO SCH ×4 (09:26→19:10)
[2016-12-02] MEDS: POLYETHYLENE GLYCOL 3350 17 GM PACKET. PO SCH (09:26)
[2016-12-02 16:17] VITALS: BP 101/65
[2016-12-02] MEDS: SIMVASTATIN 5 MG TABLET. PO SCH (19:10)
--- NOTE | 2016-12-02 20:58 | PDOC ---
Exam Tim Demential Exam: Tim Note: Please also refer to the separate dictated note~for this date of service dictated separately.~Patient seen individually. Discussed the patient with Nursing staff reviewed the chart.~Reviewed interim history and current functioning. Reviewed vital signs,~Labs/ Radiology~and current medications noted below. Continue current treatment with the changes noted in the dictated addendum note Assessment: Vital Signs: Vital Signs Date Time Temp Pulse Resp B/P (MAP) Pulse Ox O2 Delivery O2 Flow Rate FiO2 12/02/16 16:17 98.2 101 20 101/65 (77) 95 12/02/16 06:23 Room Air I&O Intake and Output 12/03/16 07:00 Intake Total 720 ml Balance 720 ml Intake Oral 720 ml # Bowel Movements 1 Current Medications: Meds: Current Medications Acetaminophen (Tylenol) 650 mg PRN Q6HRS PRN PO PAIN / TEMP; Start 11/19/16 at 18:15 Multi-Ingredient Ointment (Analgesic [place]) 1 william PRN QID PRN TP MUSCLE PAIN; Start 11/19/16 at 18:15 Al Hydroxide/Mg Hydroxide (Mylanta Plus Xs) 15 ml PRN AFTMEALHC PRN PO DYSPEPSIA; Start 11/19/16 at 18:15 Magnesium Hydroxide (Milk Of Magnesia) 2,400 mg PRN QHS PRN PO CONSTIPATION Last administered on 11/30/16 08:46; Start 11/19/16 at 18:15 Influenza Virus Vaccine Quadrival (Fluarix Quad 7255-0706 Syringe) 0.5 ml 1X ONCE VAX IM Last administered on 11/20/16 09:44; Start 11/20/16 at 09:00; Stop 11/20/16 at 09:01; Status DC Fluvoxamine Maleate (Luvox) 25 mg HS PO Last administered on 12/02/16 19:10; Start 11/19/16 at 21:00 Divalproex Sodium (Depakote) 1,000 mg BID PO Last administered on 12/02/16 19: 10; Start 11/19/16 at 21:00 Baclofen (Lioresal) 20 mg QID PO Last administered on 12/02/16 19:10; Start at 21:00 Famotidine (Pepcid) 20 mg DAILY PO Last administered on 12/02/16 09:26; Start 11/20/16 at 09:00 Polyethylene Glycol (miraLAX) 17 gm DAILY PO Last administered on 12/02/16 09: 26; Start 11/20/16 at 09:00 Valacyclovir HCl (Valtrex) 500 mg DAILY PO Last administered on 12/02/16 09:26 ; Start 11/20/16 at 09:00 Info (FLU VACCINE per PROTOCOL) 1 ea 1X ONCE MC ; Start 11/20/16 at 09:00; Stop 11/20/16 at 09:01; Status UNV Influenza Virus Vaccine Quadrival (Fluarix Quad 7360-1934 Syringe) 0.5 ml ONCE ONCE VAX IM ; Start 11/20/16 at 09:00; Stop 11/20/16 at 10:40; Status DC Simvastatin (Zocor) 5 mg QHS PO Last administered on 12/02/16 19:10; Start at 21:00 Quetiapine Fumarate (SEROquel) 25 mg HS PO Last administered on 11/27/16 19:35 ; Start 11/21/16 at 21:00; Stop 11/28/16 at 17:14; Status DC Cefpodoxime Proxetil (Vantin) 200 mg BID PO Last administered on 11/30/16 08: 46; Start 11/24/16 at 21:00; Stop 11/30/16 at 09:00; Status DC Quetiapine Fumarate (SEROquel) 50 mg HS PO Last administered on 12/01/16 20:36 ; Start 11/28/16 at 21:00; Stop 12/02/16 at 16:21; Status DC Quetiapine Fumarate (SEROquel) 25 mg HS PO Last administered on 12/02/16 19:37 ; Start 12/02/16 at 21:00 Active Scripts Active Reported Famotidine 20 Mg Tablet 20 Mg PO DAILY Valacyclovir (Valacyclovir Hcl) 500 Mg Tablet 500 Mg PO DAILY Polyethylene Glycol 3350 255 Gm Powder 17 Gm PO DAILY Metoprolol Tartrate 25 Mg Tablet 12.5 Mg PO BID Fluvoxamine Maleate 25 Mg Tablet 25 Mg PO HS Depakote (Divalproex Sodium) 500 Mg Tablet. 1,000 Mg PO BID Baclofen 20 Mg Tablet 20 Mg PO QID Diagnosis: Problems: (1) Bipolar disorder, curr episode mixed, severe, with psychotic features (2) Anxiety disorder (3) Mild cognitive disorder (4) Impulse control disorder TRUPTI CARVAJAL MD Dec 02, 2016 20:58
[2016-12-02] MEDS ORDERED: QUEtiapine 25 MG TABLET. PO SCH (21:00)
--- NOTE | 2016-12-02 22:01 | PN ---
DATE: 12/01/2016 This late entry for 12/01/2016 covers elements not covered in my initial note of 12/01/2016. SUBJECTIVE: I met with the patient in the evening of 12/01/2016. The patient has been fairly cooperative on the unit, appropriate. She has not been disruptive or aggressive. REVIEW OF SYSTEMS: Ambulation impaired, in Broda chair. No CV, , pulmonary, eye, ENT system symptoms on review. MENTAL STATUS EXAM: Oriented to herself and situation. Speech is coherent, has some latency, often responses monosyllabic. Abstraction fair, computation impaired, language function intact, attention span fair. Mood and affect appears improved. LABORATORY DATA: Reviewed. IMPRESSION: Unchanged from initial note. PLAN: Continue current psychotropics. Reviewed drug interactions. Risk/benefit ratio favors no further change. If sedation is a problem, we may reduce the Seroquel. MAN Derrick CARVAJAL MD DR: ABBIE/juliana JOB#: [id number] / [id number]
[2016-12-02] MEDS ORDERED: ACET325T9 PO (23:29)
[2016-12-02] MEDS ORDERED: MAG30ORA2 PO (23:30)
[2016-12-02] MEDS ORDERED: MAGN400O7 PO (23:31)
[2016-12-02] MEDS ORDERED: METH29OI TP (23:32)
[2016-12-02] MEDS ORDERED: QUET25TA5 PO (23:32)
[2016-12-02] MEDS ORDERED: SIMV5TAB PO (23:33)
[2016-12-03 06:00] VITALS: BP 110/64
[2016-12-03] MEDS: valACYclovir 500 MG TABLET. PO SCH (08:25)
[2016-12-03] MEDS: POLYETHYLENE GLYCOL 3350 17 GM PACKET. PO SCH (08:25)
[2016-12-03] MEDS: BACLOFEN 20 MG TABLET PO SCH ×2 (08:26→13:10)
[2016-12-03] MEDS: FAMOTIDINE 20 MG TABLET PO SCH (08:26)
[2016-12-03] MEDS: DIVALPROEX SODIUM 250 MG TABLET.DR. PO SCH (08:26)
[2016-12-03 09:55] LABS: BASO % 1 % (0-3); EOS # 0.1 x10^3/uL (0.0-0.7); EOS % 1 % (0-3); HEMATOCRIT 43.6 % (36.0-47.0); HEMOGLOBIN 14.9 g/dL (12.0-15.5); LYMPH # 1.4 x10^3/uL (1.0-4.8); LYMPH % 21 % (24-48); MEAN CORPUSCULAR HEMOGLOBIN 32 pg (25-35); MEAN CORPUSCULAR HGB CONC 34 g/dL (31-37); MEAN CORPUSCULAR VOLUME 94 fL (79-100); MONO # 0.4 x10^3/uL (0.0-1.1); MONO % 6 % (0-9); NEUT # 4.8 x10^3uL (1.8-7.7); NEUT % 72 % (31-73); PLATELET COUNT 125 x10^3/uL (140-400); RED BLOOD COUNT 4.66 x10^6/uL (3.50-5.40); RED CELL DISTRIBUTION WIDTH 13.4 % (11.5-14.5); WHITE BLOOD COUNT 6.7 x10^3/uL (4.0-11.0)
[2016-12-03 10:06] LABS: ALBUMIN 2.9 g/dL (3.4-5.0); ALBUMIN/GLOBULIN RATIO 0.9 (1.0-1.7); CALCIUM 8.6 mg/dL (8.5-10.1); CREATININE 0.5 mg/dL (0.6-1.0); GFR 126.3; POTASSIUM 4.1 mmol/L (3.5-5.1); TOTAL BILIRUBIN 0.2 mg/dL (0.2-1.0); TOTAL PROTEIN 6.2 g/dL (6.4-8.2)
[2016-12-03] MEDS ORDERED: CHOL10003 PO (10:19)
--- NOTE | 2016-12-03 20:57 | PDOC ---
Exam Tim Demential Exam: Tim Note: Please also refer to the separate dictated note~for this date of service dictated separately.~Patient seen individually. Discussed the patient with Nursing staff reviewed the chart.~Reviewed interim history and current functioning. Reviewed vital signs,~Labs/ Radiology~and current medications noted below. Continue current treatment with the changes noted in the dictated addendum note Assessment: Vital Signs: Vital Signs Date Time Temp Pulse Resp B/P (MAP) Pulse Ox O2 Delivery O2 Flow Rate FiO2 12/03/16 06:00 97.4 76 18 110/64 (79) 92 12/02/16 06:23 Room Air I&O Intake and Output 12/04/16 07:00 Intake Total 600 ml Balance 600 ml Intake Oral 600 ml Labs: Laboratory Tests Test 12/03/16 09:37 White Blood Count 6.7 x10^3/uL (4.0-11.0) Red Blood Count 4.66 x10^6/uL (3.50-5.40) Hemoglobin 14.9 g/dL (12.0-15.5) Hematocrit 43.6 % (36.0-47.0) Mean Corpuscular Volume 94 fL (79-100) Mean Corpuscular Hemoglobin 32 pg (25-35) Mean Corpuscular Hemoglobin Concent 34 g/dL (31-37) Red Cell Distribution Width 13.4 % (11.5-14.5) Platelet Count 125 x10^3/uL (140-400) L Neutrophils (%) (Auto) 72 % (31-73) Lymphocytes (%) (Auto) 21 % (24-48) L Monocytes (%) (Auto) 6 % (0-9) Eosinophils (%) (Auto) 1 % (0-3) Basophils (%) (Auto) 1 % (0-3) Neutrophils # (Auto) 4.8 x10^3uL (1.8-7.7) Lymphocytes # (Auto) 1.4 x10^3/uL (1.0-4.8) Monocytes # (Auto) 0.4 x10^3/uL (0.0-1.1) Eosinophils # (Auto) 0.1 x10^3/uL (0.0-0.7) Basophils # (Auto) 0.0 x10^3/uL (0.0-0.2) Sodium Level 144 mmol/L (136-145) Potassium Level 4.1 mmol/L (3.5-5.1) Chloride Level 107 mmol/L (98-107) Carbon Dioxide Level 32 mmol/L (21-32) Anion Gap 5 (6-14) L Blood Urea Nitrogen 14 mg/dL (7-20) Creatinine 0.5 mg/dL (0.6-1.0) L Estimated GFR (Cockcroft-Gault) 126.3 BUN/Creatinine Ratio 28 (6-20) H Glucose Level 86 mg/dL (70-99) Calcium Level 8.6 mg/dL (8.5-10.1) Total Bilirubin 0.2 mg/dL (0.2-1.0) Aspartate Amino Transferase (AST) 7 U/L (15-37) L Alanine Aminotransferase (ALT) 13 U/L (14-59) L Alkaline Phosphatase 71 U/L (46-116) Total Protein 6.2 g/dL (6.4-8.2) L Albumin 2.9 g/dL (3.4-5.0) L Albumin/Globulin Ratio 0.9 (1.0-1.7) L Current Medications: Meds: Current Medications Acetaminophen (Tylenol) 650 mg PRN Q6HRS PRN PO PAIN / TEMP; Start 11/19/16 at 18:15; Stop 12/03/16 at 14:27; Status DC Multi-Ingredient Ointment (Analgesic [place]) 1 sujata PRN QID PRN TP MUSCLE PAIN; Start 11/19/16 at 18:15; Stop 12/03/16 at 14:27; Status DC Al Hydroxide/Mg Hydroxide (Mylanta Plus Xs) 15 ml PRN AFTMEALHC PRN PO DYSPEPSIA; Start 11/19/16 at 18:15; Stop 12/03/16 at 14:27; Status DC Magnesium Hydroxide (Milk Of Magnesia) 2,400 mg PRN QHS PRN PO CONSTIPATION Last administered on 11/30/16 08:46; Start 11/19/16 at 18:15; Stop 12/03/16 at 14:27; Status DC Influenza Virus Vaccine Quadrival (Fluarix Quad 7473-8654 Syringe) 0.5 ml 1X ONCE VAX IM Last administered on 9/23/17at 09:44; Start 11/20/16 at 09:00; Stop 11/20/16 at 09:01; Status DC Fluvoxamine Maleate (Luvox) 25 mg HS PO Last administered on 12/02/16 19:10; Start 11/19/16 at 21:00; Stop 12/03/16 at 14:27; Status DC Divalproex Sodium (Depakote) 1,000 mg BID PO Last administered on 12/03/16 08: 26; Start 11/19/16 at 21:00; Stop 12/03/16 at 14:27; Status DC Baclofen (Lioresal) 20 mg QID PO Last administered on 12/03/16 13:10; Start at 21:00; Stop 12/03/16 at 14:27; Status DC Famotidine (Pepcid) 20 mg DAILY PO Last administered on 12/03/16 08:26; Start 11/20/16 at 09:00; Stop 12/03/16 at 14:27; Status DC Polyethylene Glycol (miraLAX) 17 gm DAILY PO Last administered on 12/03/16 08: 25; Start 11/20/16 at 09:00; Stop 12/03/16 at 14:27; Status DC Valacyclovir HCl (Valtrex) 500 mg DAILY PO Last administered on 12/03/16 08:25 ; Start 11/20/16 at 09:00; Stop 12/03/16 at 14:27; Status DC Info (FLU VACCINE per PROTOCOL) 1 ea 1X ONCE MC ; Start 11/20/16 at 09:00; Stop 11/20/16 at 09:01; Status UNV Influenza Virus Vaccine Quadrival (Fluarix Quad 6688-0938 Syringe) 0.5 ml ONCE ONCE VAX IM ; Start 11/20/16 at 09:00; Stop 11/20/16 at 10:40; Status DC Simvastatin (Zocor) 5 mg QHS PO Last administered on 12/02/16 19:10; Start at 21:00; Stop 12/03/16 at 14:27; Status DC Quetiapine Fumarate (SEROquel) 25 mg HS PO Last administered on 11/27/16 19:35 ; Start 11/21/16 at 21:00; Stop 11/28/16 at 17:14; Status DC Cefpodoxime Proxetil (Vantin) 200 mg BID PO Last administered on 11/30/16 08: 46; Start 11/24/16 at 21:00; Stop 11/30/16 at 09:00; Status DC Quetiapine Fumarate (SEROquel) 50 mg HS PO Last administered on 12/01/16 20:36 ; Start 11/28/16 at 21:00; Stop 12/02/16 at 16:21; Status DC Quetiapine Fumarate (SEROquel) 25 mg HS PO Last administered on 12/02/16 19:37 ; Start 12/02/16 at 21:00; Stop 12/03/16 at 14:27; Status DC Active Scripts Active Reported Vitamin D3 (Cholecalciferol (Vitamin D3)) 1,000 Unit Tablet 1,000 Unit PO DAILY Zocor (Simvastatin) 5 Mg Tablet 5 Mg PO HS Seroquel (Quetiapine Fumarate) 25 Mg Tablet 25 Mg PO QHS Analgesic [place] (Methyl Salicylate/Menthol) 28 Gm Oint...g. 1 Sujata TP PRN QID PRN Milk Of Magnesia (Magnesium Hydroxide) 400 Mg/5 Ml Oral.susp 2,400 Mg PO PRN QHS PRN Mag-Al Plus Xs Suspension (Mag Hydrox/Al Hydrox/Simeth) 30 Ml Oral.susp 15 Ml PO PRN AFTMEALHC PRN Tylenol (Acetaminophen) 325 Mg Tablet 650 Mg PO PRN Q6HRS PRN MDD 4000mg from all sources Famotidine 20 Mg Tablet 20 Mg PO DAILY Valacyclovir (Valacyclovir Hcl) 500 Mg Tablet 500 Mg PO DAILY Polyethylene Glycol 3350 255 Gm Powder 17 Gm PO DAILY Fluvoxamine Maleate 25 Mg Tablet 25 Mg PO HS Depakote (Divalproex Sodium) 500 Mg Tablet.dr 1,000 Mg PO BID Baclofen 20 Mg Tablet 20 Mg PO QID Diagnosis: Problems: (1) Impulse control disorder (2) Mild cognitive disorder (3) Anxiety disorder (4) Bipolar disorder, curr episode mixed, severe, with psychotic features TRUPTI CARVAJAL MD Dec 03, 2016 20:57
--- NOTE | 2016-12-03 21:20 | PDOC ---
Exam Tim Demential Exam: Tim Note: Please also refer to the separate dictated note~for this date of service dictated separately.~Patient seen individually. Discussed the patient with Nursing staff reviewed the chart.~Reviewed interim history and current functioning. Reviewed vital signs,~Labs/ Radiology~and current medications noted below. Continue current treatment with the changes noted in the dictated addendum note Assessment: Vital Signs: Vital Signs Date Time Temp Pulse Resp B/P (MAP) Pulse Ox O2 Delivery O2 Flow Rate FiO2 12/03/16 06:00 97.4 76 18 110/64 (79) 92 12/02/16 06:23 Room Air I&O Intake and Output 12/04/16 07:00 Intake Total 600 ml Balance 600 ml Intake Oral 600 ml Labs: Laboratory Tests Test 12/03/16 09:37 White Blood Count 6.7 x10^3/uL (4.0-11.0) Red Blood Count 4.66 x10^6/uL (3.50-5.40) Hemoglobin 14.9 g/dL (12.0-15.5) Hematocrit 43.6 % (36.0-47.0) Mean Corpuscular Volume 94 fL (79-100) Mean Corpuscular Hemoglobin 32 pg (25-35) Mean Corpuscular Hemoglobin Concent 34 g/dL (31-37) Red Cell Distribution Width 13.4 % (11.5-14.5) Platelet Count 125 x10^3/uL (140-400) L Neutrophils (%) (Auto) 72 % (31-73) Lymphocytes (%) (Auto) 21 % (24-48) L Monocytes (%) (Auto) 6 % (0-9) Eosinophils (%) (Auto) 1 % (0-3) Basophils (%) (Auto) 1 % (0-3) Neutrophils # (Auto) 4.8 x10^3uL (1.8-7.7) Lymphocytes # (Auto) 1.4 x10^3/uL (1.0-4.8) Monocytes # (Auto) 0.4 x10^3/uL (0.0-1.1) Eosinophils # (Auto) 0.1 x10^3/uL (0.0-0.7) Basophils # (Auto) 0.0 x10^3/uL (0.0-0.2) Sodium Level 144 mmol/L (136-145) Potassium Level 4.1 mmol/L (3.5-5.1) Chloride Level 107 mmol/L (98-107) Carbon Dioxide Level 32 mmol/L (21-32) Anion Gap 5 (6-14) L Blood Urea Nitrogen 14 mg/dL (7-20) Creatinine 0.5 mg/dL (0.6-1.0) L Estimated GFR (Cockcroft-Gault) 126.3 BUN/Creatinine Ratio 28 (6-20) H Glucose Level 86 mg/dL (70-99) Calcium Level 8.6 mg/dL (8.5-10.1) Total Bilirubin 0.2 mg/dL (0.2-1.0) Aspartate Amino Transferase (AST) 7 U/L (15-37) L Alanine Aminotransferase (ALT) 13 U/L (14-59) L Alkaline Phosphatase 71 U/L (46-116) Total Protein 6.2 g/dL (6.4-8.2) L Albumin 2.9 g/dL (3.4-5.0) L Albumin/Globulin Ratio 0.9 (1.0-1.7) L Current Medications: Meds: Current Medications Acetaminophen (Tylenol) 650 mg PRN Q6HRS PRN PO PAIN / TEMP; Start 11/19/16 at 18:15; Stop 12/03/16 at 14:27; Status DC Multi-Ingredient Ointment (Analgesic [place]) 1 sujata PRN QID PRN TP MUSCLE PAIN; Start 11/19/16 at 18:15; Stop 12/03/16 at 14:27; Status DC Al Hydroxide/Mg Hydroxide (Mylanta Plus Xs) 15 ml PRN AFTMEALHC PRN PO DYSPEPSIA; Start 11/19/16 at 18:15; Stop 12/03/16 at 14:27; Status DC Magnesium Hydroxide (Milk Of Magnesia) 2,400 mg PRN QHS PRN PO CONSTIPATION Last administered on 11/30/16 08:46; Start 11/19/16 at 18:15; Stop 12/03/16 at 14:27; Status DC Influenza Virus Vaccine Quadrival (Fluarix Quad [id number] Syringe) 0.5 ml 1X ONCE VAX IM Last administered on 9/23/17at 09:44; Start 11/20/16 at 09:00; Stop 11/20/16 at 09:01; Status DC Fluvoxamine Maleate (Luvox) 25 mg HS PO Last administered on 12/02/16 19:10; Start 11/19/16 at 21:00; Stop 12/03/16 at 14:27; Status DC Divalproex Sodium (Depakote) 1,000 mg BID PO Last administered on 12/03/16 08: 26; Start 11/19/16 at 21:00; Stop 12/03/16 at 14:27; Status DC Baclofen (Lioresal) 20 mg QID PO Last administered on 12/03/16 13:10; Start at 21:00; Stop 12/03/16 at 14:27; Status DC Famotidine (Pepcid) 20 mg DAILY PO Last administered on 12/03/16 08:26; Start 11/20/16 at 09:00; Stop 12/03/16 at 14:27; Status DC Polyethylene Glycol (miraLAX) 17 gm DAILY PO Last administered on 12/03/16 08: 25; Start 11/20/16 at 09:00; Stop 12/03/16 at 14:27; Status DC Valacyclovir HCl (Valtrex) 500 mg DAILY PO Last administered on 12/03/16 08:25 ; Start 11/20/16 at 09:00; Stop 12/03/16 at 14:27; Status DC Info (FLU VACCINE per PROTOCOL) 1 ea 1X ONCE MC ; Start 11/20/16 at 09:00; Stop 11/20/16 at 09:01; Status UNV Influenza Virus Vaccine Quadrival (Fluarix Quad [id number] Syringe) 0.5 ml ONCE ONCE VAX IM ; Start 11/20/16 at 09:00; Stop 11/20/16 at 10:40; Status DC Simvastatin (Zocor) 5 mg QHS PO Last administered on 12/02/16 19:10; Start at 21:00; Stop 12/03/16 at 14:27; Status DC Quetiapine Fumarate (SEROquel) 25 mg HS PO Last administered on 11/27/16 19:35 ; Start 11/21/16 at 21:00; Stop 11/28/16 at 17:14; Status DC Cefpodoxime Proxetil (Vantin) 200 mg BID PO Last administered on 11/30/16 08: 46; Start 11/24/16 at 21:00; Stop 11/30/16 at 09:00; Status DC Quetiapine Fumarate (SEROquel) 50 mg HS PO Last administered on 12/01/16 20:36 ; Start 11/28/16 at 21:00; Stop 12/02/16 at 16:21; Status DC Quetiapine Fumarate (SEROquel) 25 mg HS PO Last administered on 12/02/16 19:37 ; Start 12/02/16 at 21:00; Stop 12/03/16 at 14:27; Status DC Active Scripts Active Reported Vitamin D3 (Cholecalciferol (Vitamin D3)) 1,000 Unit Tablet 1,000 Unit PO DAILY Zocor (Simvastatin) 5 Mg Tablet 5 Mg PO HS Seroquel (Quetiapine Fumarate) 25 Mg Tablet 25 Mg PO QHS Analgesic [place] (Methyl Salicylate/Menthol) 28 Gm Oint...g. 1 Sujata TP PRN QID PRN Milk Of Magnesia (Magnesium Hydroxide) 400 Mg/5 Ml Oral.susp 2,400 Mg PO PRN QHS PRN Mag-Al Plus Xs Suspension (Mag Hydrox/Al Hydrox/Simeth) 30 Ml Oral.susp 15 Ml PO PRN AFTMEALHC PRN Tylenol (Acetaminophen) 325 Mg Tablet 650 Mg PO PRN Q6HRS PRN MDD 4000mg from all sources Famotidine 20 Mg Tablet 20 Mg PO DAILY Valacyclovir (Valacyclovir Hcl) 500 Mg Tablet 500 Mg PO DAILY Polyethylene Glycol 3350 255 Gm Powder 17 Gm PO DAILY Fluvoxamine Maleate 25 Mg Tablet 25 Mg PO HS Depakote (Divalproex Sodium) 500 Mg Tablet.dr 1,000 Mg PO BID Baclofen 20 Mg Tablet 20 Mg PO QID Diagnosis: Problems: (1) Bipolar disorder, curr episode mixed, severe, with psychotic features (2) Anxiety disorder (3) Mild cognitive disorder (4) Impulse control disorder TRUPTI CARVAJAL MD Dec 03, 2016 21:20
--- NOTE | 2016-12-03 22:07 | PN ---
DATE: 12/02/2016 PSYCHIATRIC PROGRESS NOTE This late entry date of service 12/02/2016 covers elements, not covered in my initial note of 12/02/2016. SUBJECTIVE: I met with the patient evening of 12/02/2016 and the patient was staffed at a treatment team meeting with entire team morning of 12/02/2016 and the patient's half-sister, Arianne, who is her guardian, attended the conference together with Alycia, who is the patient's biological sister. We had a very lengthy discussion since family was concerned about patient's sedation. In fact, she is attending activities, not that sedated at all, but they wanted her taken off some of her psychotropics. The patient is on Depakote, level is therapeutic. Given a bipolar disorder and history of seizure disorder, this seems appropriate though the family wondered with just one seizure whether she needed to be on it. This would have to [facility] the [facility]. She is also on Luvox 25 mg at bedtime with some obsessive thought processes, anxiety symptoms, and Seroquel 50 mg at bedtime. Discussion at great length explored keeping her in the hospital longer, trying to take her off her psychotropics versus reducing the Seroquel prior to her transition back to [facility], 12/03/2016 and finally after the meeting, they discussed it further with [facility], social service staff and decided to go with reduction of Seroquel and then a further dose reduction back at the [facility] and perhaps Seroquel can be discontinued starting in a month if she is stable at the [facility]. REVIEW OF SYSTEMS: Ambulation impaired, in Broda chair. No CV, , pulmonary, eye, ENT system symptoms on review. MENTAL STATUS EXAM: Oriented to herself and situation. Speech moderate latency, has some low in rate and rhythm, low in volume. Abstraction fair, computation impaired, language function intact. She denies being tired as I questioned her directly. No active suicidal or homicidal ideation. No clear psychotic symptoms. Mood and affect withdrawn. Intellect average. Insight good. Judgment intact. LABORATORY DATA: Reviewed. IMPRESSION: Unchanged from initial note. PLAN: Reduce Seroquel to 25 mg p.o. at bedtime with a plan to stop it in a month's time [facility] at the [facility]. Maintain Depakote, Luvox. Reviewed drug interactions. Risk/benefit ratio favors no further change. MAN Derrick CARVAJAL MD DR: ABBIE/juliana JOB#: [id number] / [id number]
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
== END 2016-12-03 14:27 | disposition home or self-care (01) | DRG 885 ==
LOC: GEROPSY 17:43
PROVIDERS: ADMIT Psychiatry & Neurology Psychiatry; ATTEND Psychiatry & Neurology Psychiatry
DX: F31.64 Bipolar disorder, current episode mixed, severe, with psychotic features (principal); G81.94 Hemiplegia, unspecified affecting left nondominant side; G40.909 Epilepsy, unspecified, not intractable, without status epilepticus; F41.9 Anxiety disorder, unspecified; F63.9 Impulse disorder, unspecified; G31.84 Mild cognitive impairment of uncertain or unknown etiology; Z66 Do not resuscitate; Z79.899 Other long term (current) drug therapy; Z91.5 Personal history of self-harm; Z87.440 Personal history of urinary (tract) infections; Z87.820 Personal history of traumatic brain injury
CPT/HCPCS: 36415; 80053; 80061; 80164; 80185; 81001; 82306; 82607; 83036; 83540; 83550; 83735; 84436; 84443; 84480; 85025; 86592; 86593; 87086; 87186; 90686; 93005

== ENCOUNTER 2016-12-27 18:45 | Inpatient (IN) | payer MEDICARE, OTHER ==
[~2016-12-27] VITALS: Ht 172.7 cm; Wt 72.6 kg
[~2016-12-27 18:45] MED LIST: ACET325T9 PO; ACET500T68 PO; BACL20TA PO; CALC-157 PO; CHOL10003 PO; DIVA500T2 PO; FAMO20TA5 PO; FLUV25TA PO; MAG30ORA2 PO; MAGN400O7 PO; METH29OI TP; METO25TA4 PO; MULT1TAB52 PO; POLY255P PO; PSYLLIUM PO; QUET25TA5 PO; RANI75TA95 PO; SENN8.6T99 PO; SIMV5TAB PO; VALA500T PO
[2016-12-27] MEDS ORDERED: LORazepam 2 MG/ML VIAL ONE (19:15)
[2016-12-27 20:08] LABS: BASO % 1 % (0-3); EOS # 0.1 x10^3/uL (0.0-0.7); EOS % 2 % (0-3); HEMATOCRIT 45.3 % (36.0-47.0); HEMOGLOBIN 15.4 g/dL (12.0-15.5); LYMPH # 1.7 x10^3/uL (1.0-4.8); LYMPH % 40 % (24-48); MEAN CORPUSCULAR HEMOGLOBIN 32 pg (25-35); MEAN CORPUSCULAR HGB CONC 34 g/dL (31-37); MEAN CORPUSCULAR VOLUME 94 fL (79-100); MONO # 0.5 x10^3/uL (0.0-1.1); MONO % 11 % (0-9); NEUT % 47 % (31-73); PLATELET COUNT 139 x10^3/uL (140-400); RED BLOOD COUNT 4.85 x10^6/uL (3.50-5.40); RED CELL DISTRIBUTION WIDTH 14.2 % (11.5-14.5); WHITE BLOOD COUNT 4.3 x10^3/uL (4.0-11.0)
[2016-12-27 20:12] LABS: ALBUMIN 3.8 g/dL (3.4-5.0); ALBUMIN/GLOBULIN RATIO 1.1 (1.0-1.7); CALCIUM 9.3 mg/dL (8.5-10.1); CREATININE 0.5 mg/dL (0.6-1.0); GFR 126.3; POTASSIUM 4.1 mmol/L (3.5-5.1); TOTAL BILIRUBIN 0.4 mg/dL (0.2-1.0); TOTAL PROTEIN 7.4 g/dL (6.4-8.2)
[2016-12-27 20:20] LABS: CLARITY,URINE CLEAR; COLOR,URINE STRAW
[2016-12-27 20:21] LABS: BACTERIA,URINE MANY /HPF (0-FEW); BILIRUBIN,URINE NEG (NEG); GLUCOSE,URINE NEG (NEG); NITRITE,URINE POS (NEG); SQUAMOUS EPITHELIAL CELL,UR MOD /LPF; UROBILINOGEN,URINE 0.2 mg/dL (0.2 mg/dL); WBC,URINE >40 /HPF (0-4)
[2016-12-27] MEDS ORDERED: LORazepam 2 MG/ML VIAL IM ONE (20:30)
[2016-12-27] MEDS ORDERED: CEPHALEXIN 250 MG CAPSULE PO ONE (21:15)
[2016-12-27] MEDS ORDERED: MAG HYDROX/AL HYDROX/SIMETH 30 ML ORAL.SUSP PO PRN (22:30)
[2016-12-27] MEDS ORDERED: MAGNESIUM HYDROXIDE 2,400 MG/30 ML ORAL.SUSP. PO PRN (22:30)
[2016-12-27] MEDS ORDERED: METHYL SALICYLATE/MENTHOL TOPICAL OINTMENT 29GM TUBE. TP PRN (22:30)
[2016-12-27 22:43] LABS: VAL ACID 83 mcg/mL (50-100)
[2016-12-27] MEDS ORDERED: METO25TA4 PO (22:43)
[2016-12-27] MEDS ORDERED: QUET25TA5 PO (22:43)
[2016-12-27] MEDS ORDERED: MULT1TAB52 PO (22:43)
[2016-12-27] MEDS ORDERED: FAMO-63 PO (22:43)
[2016-12-27 23:28] VITALS: BP 112/76
--- NOTE | 2016-12-28 01:36 | PHYS DOC ---
Past History Past Medical History: Bipolar Past Surgical History: No Surgical History Drug Use: None Adult General Chief Complaint Chief Complaint: PSYCH EVALUATION HPI HPI 61-year-old female with past medical history of psychiatric issues including bipolar with psychotic features now sent from her living arrangement for evaluation and medical clearance for [facility] admission. Patient sent to ED with report of no recent medical illness and no trauma. She is asymptomatic and at her mental status baseline except especially paranoid and verbally confrontational area and she has no complaints Review of Systems Review of Systems Constitutional: Denies fever or chills [] Eyes: Denies change in visual acuity, redness, or eye pain [] HENT: Denies nasal congestion or sore throat [] Respiratory: Denies cough or shortness of breath [] Cardiovascular: No additional information not addressed in HPI [] GI: Denies abdominal pain, nausea, vomiting, bloody stools or diarrhea [] : Denies dysuria or hematuria [] Musculoskeletal: Denies back pain or joint pain [] Integument: Denies rash or skin lesions [] Neurologic: Denies headache, focal weakness or sensory changes [] Endocrine: Denies polyuria or polydipsia [] Current Medications Current Medications Current Medications Medications (Trade) Dose Ordered Sig/Kim Start Time Stop Time Status Last Admin Dose Admin Acetaminophen (Tylenol) 650 mg PRN Q6HRS PRN 12/27/16 22:30 Al Hydroxide/Mg Hydroxide (Mylanta Plus Xs) 15 ml PRN AFTMEALHC PRN 12/27/16 22:30 Baclofen (Lioresal) 20 mg QID 12/28/16 09:00 Cephalexin HCl (Keflex) 500 mg 1X ONCE 12/27/16 21:15 12/27/16 21:16 DC 12/27/16 21:15 500 MG Divalproex Sodium (Depakote) 1,000 mg BID 12/28/16 09:00 Fluvoxamine Maleate (Luvox) 25 mg HS 12/28/16 21:00 Lorazepam (Ativan) 1 mg 1X ONCE 12/27/16 20:30 12/27/16 20:31 DC 12/27/16 19:20 1 MG Magnesium Hydroxide (Milk Of Magnesia) 2,400 mg PRN QHS PRN 12/27/16 22:30 Multi-Ingredient Ointment (Analgesic [place]) 1 william PRN QID PRN 12/27/16 22:30 Quetiapine Fumarate (SEROquel) 25 mg QHS 12/28/16 21:00 Allergies Allergies Allergies Coded Allergies Type Severity Reaction Last Updated Verified No Known Drug Allergies 11/19/16 No Physical Exam Physical Exam Alert communicative verbally confrontational and very paranoid older middle- aged female in no acute distress Constitutional: Well developed, well nourished, no acute distress, non-toxic appearance. [] HENT: Normocephalic, atraumatic, bilateral external ears normal, oropharynx moist, no oral exudates, nose normal. [] Eyes: PERRLA, EOMI, conjunctiva normal, no discharge. [] Neck: Normal range of motion, no tenderness, supple, no stridor. [] Cardiovascular:Heart rate regular rhythm, no murmur [] Lungs & Thorax: Bilateral breath sounds clear to auscultation [] Abdomen: Bowel sounds normal, soft, no tenderness, no masses, no pulsatile masses. [] Skin: Warm, dry, no erythema, no rash. [] Back: No tenderness, no CVA tenderness. [] Extremities: No tenderness, no cyanosis, no clubbing, ROM intact, no edema. [] Neurologic: Alert and oriented X 3, normal motor function, normal sensory function, no focal deficits noted. [] Psychologic: Affect normal, judgement normal, patient paranoid and confrontational] Current Patient Data Vital Signs Vital Signs Date Time Temp Pulse Resp B/P (MAP) Pulse Ox O2 Delivery O2 Flow Rate FiO2 12/27/16 23:28 97.4 66 20 112/76 (88) 100 Room Air Lab Results Laboratory Tests Test 12/27/16 19:25 12/27/16 19:45 White Blood Count 4.3 x10^3/uL (4.0-11.0) Red Blood Count 4.85 x10^6/uL (3.50-5.40) Hemoglobin 15.4 g/dL (12.0-15.5) Hematocrit 45.3 % (36.0-47.0) Mean Corpuscular Volume 94 fL (79-100) Mean Corpuscular Hemoglobin 32 pg (25-35) Mean Corpuscular Hemoglobin Concent 34 g/dL (31-37) Red Cell Distribution Width 14.2 % (11.5-14.5) Platelet Count 139 x10^3/uL (140-400) L Neutrophils (%) (Auto) 47 % (31-73) Lymphocytes (%) (Auto) 40 % (24-48) Monocytes (%) (Auto) 11 % (0-9) H Eosinophils (%) (Auto) 2 % (0-3) Basophils (%) (Auto) 1 % (0-3) Neutrophils # (Auto) 2.0 x10^3uL (1.8-7.7) Lymphocytes # (Auto) 1.7 x10^3/uL (1.0-4.8) Monocytes # (Auto) 0.5 x10^3/uL (0.0-1.1) Eosinophils # (Auto) 0.1 x10^3/uL (0.0-0.7) Basophils # (Auto) 0.0 x10^3/uL (0.0-0.2) Sodium Level 135 mmol/L (136-145) L Potassium Level 4.1 mmol/L (3.5-5.1) Chloride Level 98 mmol/L (98-107) Carbon Dioxide Level 30 mmol/L (21-32) Anion Gap 7 (6-14) Blood Urea Nitrogen 7 mg/dL (7-20) Creatinine 0.5 mg/dL (0.6-1.0) L Estimated GFR (Cockcroft-Gault) 126.3 BUN/Creatinine Ratio 14 (6-20) Glucose Level 85 mg/dL (70-99) Calcium Level 9.3 mg/dL (8.5-10.1) Magnesium Level 2.0 mg/dL (1.8-2.4) Total Bilirubin 0.4 mg/dL (0.2-1.0) Aspartate Amino Transferase (AST) 9 U/L (15-37) L Alanine Aminotransferase (ALT) 14 U/L (14-59) Alkaline Phosphatase 62 U/L (46-116) Total Protein 7.4 g/dL (6.4-8.2) Albumin 3.8 g/dL (3.4-5.0) Albumin/Globulin Ratio 1.1 (1.0-1.7) Valproic Acid Level 83 mcg/mL (50-100) Valproic Acid Last Dose Date 12/27/16 Valproic Acid Last Dose Time 0900 Urine Collection Type U cath Urine Color Straw Urine Clarity Clear Urine pH 6.5 Urine Specific [place] <=1.005 Urine Protein Neg (NEG-TRACE) Urine Glucose (UA) Neg mg/dL (NEG) Urine Ketones (Stick) Neg mg/dL (NEG) Urine Blood Trace (NEG) Urine Nitrite Pos (NEG) Urine Bilirubin Neg (NEG) Urine Urobilinogen Dipstick 0.2 mg/dL (0.2 mg/dL) Urine Leukocyte Esterase Large (NEG) Urine RBC 3-5 /HPF (0-2) Urine WBC >40 /HPF (0-4) Urine Squamous Epithelial Cells Mod /LPF Urine Bacteria Many /HPF (0-FEW) EKG EKG EKG with normal sinus rhythm at 80 normal axis no STEMI interpreted by sd Radiology/Procedures Radiology/Procedures [] Course & Med Decision Making Course & Med Decision Making Pertinent Labs and Imaging studies reviewed. (See chart for details) Patient stable and nonfocal neurologically. She is manifesting signs and symptoms consistent with exacerbation of her bipolar with psychotic features. Urinalysis suggestive of infection. Keflex given by mouth in ED and will be continued 4 times a day for 10 days. Patient medically clear for psychiatric admission to [facility]. Vital signs stable and no further workup or treatment indicated in the emergency department at this time. [] Dragon Disclaimer Dragon Disclaimer This chart was dictated in whole or in part using Voice Recognition software in a busy, high-work load, and often noisy Emergency Department environment. It may contain unintended and wholly unrecognized errors or omissions. Departure Departure: Impression: Primary Impression: Bipolar disorder, curr episode mixed, severe, with psychotic f... Additional Impression: Urinary tract infection Disposition: ADMITTED INPATIENT Condition: STABLE Referrals: RAMILA SINGER (PCP) Problem Qualifiers MARCELO ESCALONA MD Dec 28, 2016 01:36
[2016-12-28 05:51] VITALS: BP 113/79
[2016-12-28] MEDS ORDERED: METOPROLOL TART IMMED RELEASE 25 MG TABLET PO PRN (06:00)
[2016-12-28] MEDS ORDERED: ACETAMINOPHEN 325 MG TABLET PO PRN (06:00)
[2016-12-28] MEDS ORDERED: MAGNESIUM HYDROXIDE 2,400 MG/30 ML ORAL.SUSP. PO PRN (06:00)
[2016-12-28] MEDS ORDERED: FOSFOMYCIN TROMETHAMINE 3 GM PACKET PO ONE (06:00)
--- NOTE | 2016-12-28 06:03 | EKG ---
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
[2016-12-28] MEDS ORDERED: QUEtiapine 25 MG TABLET. PO SCH (09:00)
[2016-12-28] MEDS: BACLOFEN 20 MG TABLET PO SCH ×4 (09:50→19:28)
[2016-12-28] MEDS: MULTIVITAMIN with MINERAL TABLET. PO SCH (09:52)
[2016-12-28] MEDS: DIVALPROEX SODIUM 250 MG TABLET.DR. PO SCH ×2 (09:52→19:24)
[2016-12-28] MEDS: CHOLECALCIFEROL (VITAMIN D3) 1,000 UNIT TABLET PO SCH (09:52)
[2016-12-28] MEDS: FAMOTIDINE 20 MG TABLET PO SCH (09:52)
[2016-12-28] MEDS: POLYETHYLENE GLYCOL 3350 17 GM PACKET. PO SCH (09:52)
[2016-12-28] MEDS: METOPROLOL TART IMMED RELEASE 25 MG TABLET PO SCH ×2 (09:52→19:30)
[2016-12-28] MEDS: valACYclovir 500 MG TABLET. PO SCH (14:42)
[2016-12-28 17:48] LABS: THYROID STIM HORMONE (TSH) 2.207 uIU/mL (0.358-3.740)
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
[2016-12-28 19:12] LABS: T3 TOTAL 108 ng/dL (71-180); THYROXINE 7.4 ug/dL (4.5-12.0)
[2016-12-28] MEDS: QUEtiapine 25 MG TABLET. PO SCH (19:31)
[2016-12-28] MEDS: SIMVASTATIN 10 MG TABLET PO SCH (19:32)
--- NOTE | 2016-12-28 22:08 | PDOC ---
Exam Tim Demential Exam: Tim Note: Please also refer to the separate dictated note~for this date of service dictated separately.~Patient seen individually. Discussed the patient with Nursing staff reviewed the chart.~Reviewed interim history and current functioning. Reviewed vital signs,~Labs/ Radiology~and current medications noted below. Continue current treatment with the changes noted in the dictated addendum note Assessment: Vital Signs: Vital Signs Date Time Temp Pulse Resp B/P (MAP) Pulse Ox O2 Delivery O2 Flow Rate FiO2 12/28/16 19:30 113/79 12/28/16 16:14 97.0 79 20 100 12/27/16 23:28 Room Air I&O Intake and Output 12/29/16 07:00 Intake Total 960 ml Balance 960 ml Intake Oral 960 ml # Bowel Movements 1 Current Medications: Meds: Current Medications Lorazepam (Ativan) 2 mg STK-MED ONCE .ROUTE ; Start 12/27/16 at 19:15; Stop at 19:16; Status DC Lorazepam (Ativan) 1 mg 1X ONCE IM Last administered on 12/27/16 19:20; Start 12/27/16 at 20:30; Stop 12/27/16 at 20:31; Status DC Cephalexin HCl (Keflex) 500 mg 1X ONCE PO Last administered on 12/27/16 21: 15; Start 12/27/16 at 21:15; Stop 12/27/16 at 21:16; Status DC Acetaminophen (Tylenol) 650 mg PRN Q6HRS PRN PO PAIN / TEMP; Start 12/27/16 at 22:30 Multi-Ingredient Ointment (Analgesic [place]) 1 william PRN QID PRN TP MUSCLE PAIN; Start 12/27/16 at 22:30 Al Hydroxide/Mg Hydroxide (Mylanta Plus Xs) 15 ml PRN AFTMEALHC PRN PO DYSPEPSIA; Start 12/27/16 at 22:30 Magnesium Hydroxide (Milk Of Magnesia) 2,400 mg PRN QHS PRN PO CONSTIPATION; Start 12/27/16 at 22:30 Fluvoxamine Maleate (Luvox) 25 mg HS PO Last administered on 12/28/16 19:31; Start 12/28/16 at 21:00 Quetiapine Fumarate (SEROquel) 12.5 mg DAILY PO Last administered on 09:50; Start 12/28/16 at 09:00; Stop 12/28/16 at 18:41; Status DC Quetiapine Fumarate (SEROquel) 25 mg QHS PO Last administered on 12/28/16 19: 31; Start 12/28/16 at 21:00 Baclofen (Lioresal) 20 mg QID PO Last administered on 12/28/16 19:28; Start 12/28/16 at 09:00 Divalproex Sodium (Depakote) 1,000 mg BID PO Last administered on 12/28/16 19 :24; Start 12/28/16 at 09:00 Acetaminophen (Tylenol) 650 mg PRN Q6HRS PRN PO PAIN / TEMP; Start 12/28/16 at 06:00; Status UNV Vitamin D (Vitamin D3) 1,000 unit DAILY PO Last administered on 12/28/16 09: 52; Start 12/28/16 at 09:00 Famotidine (Pepcid) 20 mg DAILY PO Last administered on 12/28/16 09:52; Start 12/28/16 at 09:00 Magnesium Hydroxide (Milk Of Magnesia) 2,400 mg PRN QHS PRN PO CONSTIPATION; Start 12/28/16 at 06:00; Status Cancel Metoprolol Tartrate (Lopressor) 12.5 mg PRN BID PRN PO HYPERTENSION, SEE COMMENTS; Start 12/28/16 at 06:00; Stop 12/28/16 at 06:05; Status DC Polyethylene Glycol (miraLAX) 17 gm DAILY PO Last administered on 12/28/16 09 :52; Start 12/28/16 at 09:00 Simvastatin (Zocor) 5 mg QHS PO Last administered on 12/28/16 19:32; Start 12/28/16 at 21:00 Valacyclovir HCl (Valtrex) 500 mg DAILY PO Last administered on 12/28/16 14: 42; Start 12/28/16 at 09:00 Multivitamins/ Calcium (Thera-M Plus) 1 tab DAILY PO Last administered on 12/28 09:52; Start 12/28/16 at 09:00 Fosfomycin Tromethamine (Monurol) 3 gm 1X ONCE PO Last administered on 06:08; Start 12/28/16 at 06:00; Stop 12/28/16 at 06:02; Status DC Metoprolol Tartrate (Lopressor) 12.5 mg BID PO Last administered on 12/28/16 19:30; Start 12/28/16 at 09:00 Quetiapine Fumarate (SEROquel) 12.5 mg BID92 PO ; Start 12/29/16 at 09:00 Active Scripts Active Reported Seroquel (Quetiapine Fumarate) 25 Mg Tablet 12.5 Mg PO DAILY Pepcid (Famotidine) 20 Mg Tablet 20 Mg PO DAILY Multivitamins (Multivitamin) 1 Each Tablet 1 Each PO DAILY Metoprolol Tartrate 25 Mg Tablet 12.5 Mg PO BID PRN Vitamin D3 (Cholecalciferol (Vitamin D3)) 1,000 Unit Tablet 1,000 Unit PO DAILY Zocor (Simvastatin) 5 Mg Tablet 5 Mg PO HS Seroquel (Quetiapine Fumarate) 25 Mg Tablet 25 Mg PO QHS Milk Of Magnesia (Magnesium Hydroxide) 400 Mg/5 Ml Oral.susp 2,400 Mg PO PRN QHS PRN Tylenol (Acetaminophen) 325 Mg Tablet 650 Mg PO PRN Q6HRS PRN MDD 4000mg from all sources Valacyclovir (Valacyclovir Hcl) 500 Mg Tablet 500 Mg PO DAILY Polyethylene Glycol 3350 255 Gm Powder 17 Gm PO DAILY Fluvoxamine Maleate 25 Mg Tablet 25 Mg PO HS Depakote (Divalproex Sodium) 500 Mg Tablet.dr 1,000 Mg PO BID Baclofen 20 Mg Tablet 20 Mg PO QID Diagnosis: Problems: (1) Bipolar disorder, curr episode mixed, severe, with psychotic features (2) Anxiety disorder (3) Mild cognitive disorder (4) Impulse control disorder TRUPTI CARVAJAL MD Dec 28, 2016 22:08
[2016-12-29 05:57] VITALS: BP 102/59
[2016-12-29] MEDS: POLYETHYLENE GLYCOL 3350 17 GM PACKET. PO SCH (08:48)
[2016-12-29] MEDS: METOPROLOL TART IMMED RELEASE 25 MG TABLET PO SCH ×2 (08:48→19:55)
[2016-12-29] MEDS: CHOLECALCIFEROL (VITAMIN D3) 1,000 UNIT TABLET PO SCH (08:48)
[2016-12-29] MEDS: FAMOTIDINE 20 MG TABLET PO SCH (08:48)
[2016-12-29] MEDS: MULTIVITAMIN with MINERAL TABLET. PO SCH (08:48)
[2016-12-29] MEDS: DIVALPROEX SODIUM 250 MG TABLET.DR. PO SCH ×2 (08:49→08:54)
[2016-12-29] MEDS: BACLOFEN 20 MG TABLET PO SCH ×5 (08:50→19:55)
[2016-12-29] MEDS: QUEtiapine 25 MG TABLET. PO SCH ×3 (08:50→19:54)
[2016-12-29] MEDS: valACYclovir 500 MG TABLET. PO SCH (08:51)
[2016-12-29] MEDS: DIVALPROEX 125 MG CAP.SPRINK PO SCH ×2 (09:13→19:53)
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
[2016-12-29 16:13] LABS: HEMOGLOBIN A1C 4.2 % (4.8-5.6)
[2016-12-29 16:34] VITALS: BP 92/64
[2016-12-29] MEDS: SIMVASTATIN 10 MG TABLET PO SCH (19:53)
--- NOTE | 2016-12-29 20:52 | PDOC ---
Exam Tim Demential Exam: Tim Note: Please also refer to the separate dictated note~for this date of service dictated separately.~Patient seen individually. Discussed the patient with Nursing staff reviewed the chart.~Reviewed interim history and current functioning. Reviewed vital signs,~Labs/ Radiology~and current medications noted below. Continue current treatment with the changes noted in the dictated addendum note Assessment: Vital Signs: Vital Signs Date Time Temp Pulse Resp B/P (MAP) Pulse Ox O2 Delivery O2 Flow Rate FiO2 12/29/16 19:55 69 92/64 12/29/16 16:34 97.6 16 94 Room Air I&O Intake and Output 12/30/16 07:00 Intake Total 840 ml Balance 840 ml Intake Oral 840 ml # Bowel Movements 2 Current Medications: Meds: Current Medications Lorazepam (Ativan) 2 mg STK-MED ONCE .ROUTE ; Start 12/27/16 at 19:15; Stop at 19:16; Status DC Lorazepam (Ativan) 1 mg 1X ONCE IM Last administered on 12/27/16 19:20; Start 12/27/16 at 20:30; Stop 12/27/16 at 20:31; Status DC Cephalexin HCl (Keflex) 500 mg 1X ONCE PO Last administered on 12/27/16 21: 15; Start 12/27/16 at 21:15; Stop 12/27/16 at 21:16; Status DC Acetaminophen (Tylenol) 650 mg PRN Q6HRS PRN PO PAIN / TEMP; Start 12/27/16 at 22:30 Multi-Ingredient Ointment (Analgesic [place]) 1 william PRN QID PRN TP MUSCLE PAIN; Start 12/27/16 at 22:30 Al Hydroxide/Mg Hydroxide (Mylanta Plus Xs) 15 ml PRN AFTMEALHC PRN PO DYSPEPSIA; Start 12/27/16 at 22:30 Magnesium Hydroxide (Milk Of Magnesia) 2,400 mg PRN QHS PRN PO CONSTIPATION; Start 12/27/16 at 22:30 Fluvoxamine Maleate (Luvox) 25 mg HS PO Last administered on 12/29/16 19:54; Start 12/28/16 at 21:00 Quetiapine Fumarate (SEROquel) 12.5 mg DAILY PO Last administered on 09:50; Start 12/28/16 at 09:00; Stop 12/28/16 at 18:41; Status DC Quetiapine Fumarate (SEROquel) 25 mg QHS PO Last administered on 12/29/16 19: 54; Start 12/28/16 at 21:00 Baclofen (Lioresal) 20 mg QID PO Last administered on 12/29/16 19:55; Start 12/28/16 at 09:00 Divalproex Sodium (Depakote) 1,000 mg BID PO Last administered on 12/28/16 19 :24; Start 12/28/16 at 09:00; Stop 12/29/16 at 08:56; Status DC Acetaminophen (Tylenol) 650 mg PRN Q6HRS PRN PO PAIN / TEMP; Start 12/28/16 at 06:00; Status UNV Vitamin D (Vitamin D3) 1,000 unit DAILY PO Last administered on 12/29/16 08:48 ; Start 12/28/16 at 09:00 Famotidine (Pepcid) 20 mg DAILY PO Last administered on 12/29/16 08:48; Start 12/28/16 at 09:00 Magnesium Hydroxide (Milk Of Magnesia) 2,400 mg PRN QHS PRN PO CONSTIPATION; Start 12/28/16 at 06:00; Status Cancel Metoprolol Tartrate (Lopressor) 12.5 mg PRN BID PRN PO HYPERTENSION, SEE COMMENTS; Start 12/28/16 at 06:00; Stop 12/28/16 at 06:05; Status DC Polyethylene Glycol (miraLAX) 17 gm DAILY PO Last administered on 12/29/16 08: 48; Start 12/28/16 at 09:00 Simvastatin (Zocor) 5 mg QHS PO Last administered on 12/29/16 19:53; Start at 21:00 Valacyclovir HCl (Valtrex) 500 mg DAILY PO Last administered on 12/29/16 08:51 ; Start 12/28/16 at 09:00 Multivitamins/ Calcium (Thera-M Plus) 1 tab DAILY PO Last administered on 08:48; Start 12/28/16 at 09:00 Fosfomycin Tromethamine (Monurol) 3 gm 1X ONCE PO Last administered on 06:08; Start 12/28/16 at 06:00; Stop 12/28/16 at 06:02; Status DC Metoprolol Tartrate (Lopressor) 12.5 mg BID PO Last administered on 12/28/16 19:30; Start 12/28/16 at 09:00 Quetiapine Fumarate (SEROquel) 12.5 mg BID92 PO Last administered on 12/29/16 13:25; Start 12/29/16 at 09:00 Divalproex Sodium (Depakote Sprinkles) 1,000 mg BID PO Last administered on 19:53; Start 12/29/16 at 09:00 Active Scripts Active Reported Seroquel (Quetiapine Fumarate) 25 Mg Tablet 12.5 Mg PO DAILY Pepcid (Famotidine) 20 Mg Tablet 20 Mg PO DAILY Multivitamins (Multivitamin) 1 Each Tablet 1 Each PO DAILY Metoprolol Tartrate 25 Mg Tablet 12.5 Mg PO BID PRN Vitamin D3 (Cholecalciferol (Vitamin D3)) 1,000 Unit Tablet 1,000 Unit PO DAILY Zocor (Simvastatin) 5 Mg Tablet 5 Mg PO HS Seroquel (Quetiapine Fumarate) 25 Mg Tablet 25 Mg PO QHS Milk Of Magnesia (Magnesium Hydroxide) 400 Mg/5 Ml Oral.susp 2,400 Mg PO PRN QHS PRN Tylenol (Acetaminophen) 325 Mg Tablet 650 Mg PO PRN Q6HRS PRN MDD 4000mg from all sources Valacyclovir (Valacyclovir Hcl) 500 Mg Tablet 500 Mg PO DAILY Polyethylene Glycol 3350 255 Gm Powder 17 Gm PO DAILY Fluvoxamine Maleate 25 Mg Tablet 25 Mg PO HS Depakote (Divalproex Sodium) 500 Mg Tablet.dr 1,000 Mg PO BID Baclofen 20 Mg Tablet 20 Mg PO QID Diagnosis: Problems: (1) Bipolar disorder, curr episode mixed, severe, with psychotic features (2) Anxiety disorder (3) Mild cognitive disorder (4) Impulse control disorder TRUPTI CARVAJAL MD Dec 29, 2016 20:52
[2016-12-30 06:18] VITALS: BP 99/64
[2016-12-30] MEDS: BACLOFEN 20 MG TABLET PO SCH ×4 (07:54→19:55)
[2016-12-30] MEDS: METOPROLOL TART IMMED RELEASE 25 MG TABLET PO SCH ×2 (07:54→19:56)
[2016-12-30] MEDS: DIVALPROEX 125 MG CAP.SPRINK PO SCH ×2 (07:54→19:55)
[2016-12-30] MEDS: QUEtiapine 25 MG TABLET. PO SCH ×3 (07:55→19:57)
[2016-12-30] MEDS: POLYETHYLENE GLYCOL 3350 17 GM PACKET. PO SCH (07:55)
[2016-12-30] MEDS: MULTIVITAMIN with MINERAL TABLET. PO SCH (07:55)
[2016-12-30] MEDS: CHOLECALCIFEROL (VITAMIN D3) 1,000 UNIT TABLET PO SCH (07:55)
[2016-12-30] MEDS: FAMOTIDINE 20 MG TABLET PO SCH (07:59)
[2016-12-30] MEDS: valACYclovir 500 MG TABLET. PO SCH (07:59)
[2016-12-30 16:24] VITALS: BP 102/64
[2016-12-30] MEDS: SIMVASTATIN 10 MG TABLET PO SCH (19:56)
--- NOTE | 2016-12-30 20:49 | PDOC ---
Exam Tim Demential Exam: Tim Note: Please also refer to the separate dictated note~for this date of service dictated separately.~Patient seen individually. Discussed the patient with Nursing staff reviewed the chart.~Reviewed interim history and current functioning. Reviewed vital signs,~Labs/ Radiology~and current medications noted below. Continue current treatment with the changes noted in the dictated addendum note Assessment: Vital Signs: Vital Signs Date Time Temp Pulse Resp B/P (MAP) Pulse Ox O2 Delivery O2 Flow Rate FiO2 12/30/16 19:56 69 102/64 12/30/16 16:24 97.2 18 90 Room Air I&O Intake and Output 12/31/16 07:00 Intake Total 960 ml Balance 960 ml Intake Oral 960 ml Current Medications: Meds: Current Medications Lorazepam (Ativan) 2 mg STK-MED ONCE .ROUTE ; Start 12/27/16 at 19:15; Stop at 19:16; Status DC Lorazepam (Ativan) 1 mg 1X ONCE IM Last administered on 12/27/16 19:20; Start 12/27/16 at 20:30; Stop 12/27/16 at 20:31; Status DC Cephalexin HCl (Keflex) 500 mg 1X ONCE PO Last administered on 12/27/16 21: 15; Start 12/27/16 at 21:15; Stop 12/27/16 at 21:16; Status DC Acetaminophen (Tylenol) 650 mg PRN Q6HRS PRN PO PAIN / TEMP; Start 12/27/16 at 22:30 Multi-Ingredient Ointment (Analgesic [place]) 1 william PRN QID PRN TP MUSCLE PAIN; Start 12/27/16 at 22:30 Al Hydroxide/Mg Hydroxide (Mylanta Plus Xs) 15 ml PRN AFTMEALHC PRN PO DYSPEPSIA; Start 12/27/16 at 22:30 Magnesium Hydroxide (Milk Of Magnesia) 2,400 mg PRN QHS PRN PO CONSTIPATION; Start 12/27/16 at 22:30 Fluvoxamine Maleate (Luvox) 25 mg HS PO Last administered on 12/29/16 19:54; Start 12/28/16 at 21:00; Stop 12/30/16 at 20:09; Status DC Quetiapine Fumarate (SEROquel) 12.5 mg DAILY PO Last administered on 09:50; Start 12/28/16 at 09:00; Stop 12/28/16 at 18:41; Status DC Quetiapine Fumarate (SEROquel) 25 mg QHS PO Last administered on 12/29/16 19: 54; Start 12/28/16 at 21:00; Stop 12/30/16 at 20:09; Status DC Baclofen (Lioresal) 20 mg QID PO Last administered on 12/30/16 19:55; Start 12/28/16 at 09:00 Divalproex Sodium (Depakote) 1,000 mg BID PO Last administered on 12/28/16 19 :24; Start 12/28/16 at 09:00; Stop 12/29/16 at 08:56; Status DC Acetaminophen (Tylenol) 650 mg PRN Q6HRS PRN PO PAIN / TEMP; Start 12/28/16 at 06:00; Status UNV Vitamin D (Vitamin D3) 1,000 unit DAILY PO Last administered on 12/30/16 07:55 ; Start 12/28/16 at 09:00 Famotidine (Pepcid) 20 mg DAILY PO Last administered on 12/30/16 07:59; Start 12/28/16 at 09:00 Magnesium Hydroxide (Milk Of Magnesia) 2,400 mg PRN QHS PRN PO CONSTIPATION; Start 12/28/16 at 06:00; Status Cancel Metoprolol Tartrate (Lopressor) 12.5 mg PRN BID PRN PO HYPERTENSION, SEE COMMENTS; Start 12/28/16 at 06:00; Stop 12/28/16 at 06:05; Status DC Polyethylene Glycol (miraLAX) 17 gm DAILY PO Last administered on 12/30/16 07: 55; Start 12/28/16 at 09:00 Simvastatin (Zocor) 5 mg QHS PO Last administered on 12/30/16 19:56; Start at 21:00 Valacyclovir HCl (Valtrex) 500 mg DAILY PO Last administered on 12/30/16 07:59 ; Start 12/28/16 at 09:00 Multivitamins/ Calcium (Thera-M Plus) 1 tab DAILY PO Last administered on 07:55; Start 12/28/16 at 09:00 Fosfomycin Tromethamine (Monurol) 3 gm 1X ONCE PO Last administered on 06:08; Start 12/28/16 at 06:00; Stop 12/28/16 at 06:02; Status DC Metoprolol Tartrate (Lopressor) 12.5 mg BID PO Last administered on 12/28/16 19:30; Start 12/28/16 at 09:00 Quetiapine Fumarate (SEROquel) 12.5 mg BID92 PO Last administered on 12/30/16 13:17; Start 12/29/16 at 09:00; Stop 12/30/16 at 20:09; Status DC Divalproex Sodium (Depakote Sprinkles) 1,000 mg BID PO Last administered on 19:55; Start 12/29/16 at 09:00 Active Scripts Active Reported Seroquel (Quetiapine Fumarate) 25 Mg Tablet 12.5 Mg PO DAILY Pepcid (Famotidine) 20 Mg Tablet 20 Mg PO DAILY Multivitamins (Multivitamin) 1 Each Tablet 1 Each PO DAILY Metoprolol Tartrate 25 Mg Tablet 12.5 Mg PO BID PRN Vitamin D3 (Cholecalciferol (Vitamin D3)) 1,000 Unit Tablet 1,000 Unit PO DAILY Zocor (Simvastatin) 5 Mg Tablet 5 Mg PO HS Seroquel (Quetiapine Fumarate) 25 Mg Tablet 25 Mg PO QHS Milk Of Magnesia (Magnesium Hydroxide) 400 Mg/5 Ml Oral.susp 2,400 Mg PO PRN QHS PRN Tylenol (Acetaminophen) 325 Mg Tablet 650 Mg PO PRN Q6HRS PRN MDD 4000mg from all sources Valacyclovir (Valacyclovir Hcl) 500 Mg Tablet 500 Mg PO DAILY Polyethylene Glycol 3350 255 Gm Powder 17 Gm PO DAILY Fluvoxamine Maleate 25 Mg Tablet 25 Mg PO HS Depakote (Divalproex Sodium) 500 Mg Tablet. 1,000 Mg PO BID Baclofen 20 Mg Tablet 20 Mg PO QID Diagnosis: Problems: (1) Bipolar disorder, curr episode mixed, severe, with psychotic features (2) Anxiety disorder (3) Mild cognitive disorder (4) Impulse control disorder TRUPTI CARVAJAL MD Dec 30, 2016 20:49
[2016-12-31 06:14] VITALS: BP 103/61
[2016-12-31] MEDS: CHOLECALCIFEROL (VITAMIN D3) 1,000 UNIT TABLET PO SCH (08:20)
[2016-12-31] MEDS: DIVALPROEX 125 MG CAP.SPRINK PO SCH ×2 (08:20→20:05)
[2016-12-31] MEDS: METOPROLOL TART IMMED RELEASE 25 MG TABLET PO SCH ×2 (08:20→20:08)
[2016-12-31] MEDS: MULTIVITAMIN with MINERAL TABLET. PO SCH (08:20)
[2016-12-31] MEDS: BACLOFEN 20 MG TABLET PO SCH ×4 (08:20→20:06)
[2016-12-31] MEDS: valACYclovir 500 MG TABLET. PO SCH (08:20)
[2016-12-31] MEDS: POLYETHYLENE GLYCOL 3350 17 GM PACKET. PO SCH (08:21)
[2016-12-31] MEDS: FAMOTIDINE 20 MG TABLET PO SCH (08:21)
--- NOTE | 2016-12-31 09:36 | PN ---
DATE: 12/29/2016 This is late entry, date of service 12/29/2016, covers elements not covered in my initial note 12/29/2016. SUBJECTIVE: The patient was staffed at a treatment team meeting with the entire team the morning of 12/29/2016, and individually evening of 12/29/2016. Per nursing report, the patient was extremely sarcastic and yelling at staff the previous evening, grandiose, hyper-latter day, aware of her date of , oriented to herself and situation, compliant with medications. She was given a dose of Monural, since UA was positive. REVIEW OF SYSTEMS: Ambulation impaired, in a Broda chair. No CV, , pulmonary, eye, ENT system symptoms on review. Reliability varies. MENTAL STATUS EXAM: Oriented to herself and situation. Speech is coherent, abstraction fair, computation impaired, language function intact, attention span short, mood and affect somewhat grandiose. LABORATORY DATA: Reviewed. IMPRESSION: Unchanged from initial note. PLAN: Seroquel has been increased from 12.5 mg daily to 12.5 mg twice a day and 25 mg at bedtime. Maintain Depakote ER 1000 mg b.i.d., level therapeutic at 83. Luvox 25 mg at bedtime. Reviewed drug interactions. Risk/benefit ratio favors no further change for now. She refused her p.m. medications, calling nursing staff nasty names and profanities. Mood remains labile. TRUPTI CARVAJAL MD DR: ABBIE/juliana JOB#: [id number] / [id number]
[2016-12-31] MEDS: NITROFURANTOIN MONOHYD/M-CRYST 100 MG CAPSULE. PO SCH ×2 (13:38→20:10)
[2016-12-31 16:16] VITALS: BP 112/68
[2016-12-31] MEDS: SIMVASTATIN 10 MG TABLET PO SCH (20:06)
--- NOTE | 2016-12-31 20:58 | PDOC ---
Exam Tim Demential Exam: Tim Note: Please also refer to the separate dictated note~for this date of service dictated separately.~Patient seen individually. Discussed the patient with Nursing staff reviewed the chart.~Reviewed interim history and current functioning. Reviewed vital signs,~Labs/ Radiology~and current medications noted below. Continue current treatment with the changes noted in the dictated addendum note Assessment: Vital Signs: Vital Signs Date Time Temp Pulse Resp B/P (MAP) Pulse Ox O2 Delivery O2 Flow Rate FiO2 12/31/16 20:08 66 103/61 12/31/16 16:16 98.6 18 96 12/30/16 16:24 Room Air I&O Intake and Output 01/01/17 07:00 Intake Total 1560 ml Balance 1560 ml Intake Oral 1560 ml # Bowel Movements 1 Current Medications: Meds: Current Medications Lorazepam (Ativan) 2 mg STK-MED ONCE .ROUTE ; Start 12/27/16 at 19:15; Stop at 19:16; Status DC Lorazepam (Ativan) 1 mg 1X ONCE IM Last administered on 12/27/16 19:20; Start 12/27/16 at 20:30; Stop 12/27/16 at 20:31; Status DC Cephalexin HCl (Keflex) 500 mg 1X ONCE PO Last administered on 12/27/16 21: 15; Start 12/27/16 at 21:15; Stop 12/27/16 at 21:16; Status DC Acetaminophen (Tylenol) 650 mg PRN Q6HRS PRN PO PAIN / TEMP; Start 12/27/16 at 22:30 Multi-Ingredient Ointment (Analgesic [place]) 1 william PRN QID PRN TP MUSCLE PAIN; Start 12/27/16 at 22:30 Al Hydroxide/Mg Hydroxide (Mylanta Plus Xs) 15 ml PRN AFTMEALHC PRN PO DYSPEPSIA; Start 12/27/16 at 22:30 Magnesium Hydroxide (Milk Of Magnesia) 2,400 mg PRN QHS PRN PO CONSTIPATION; Start 12/27/16 at 22:30 Fluvoxamine Maleate (Luvox) 25 mg HS PO Last administered on 12/29/16 19:54; Start 12/28/16 at 21:00; Stop 12/30/16 at 20:09; Status DC Quetiapine Fumarate (SEROquel) 12.5 mg DAILY PO Last administered on 09:50; Start 12/28/16 at 09:00; Stop 12/28/16 at 18:41; Status DC Quetiapine Fumarate (SEROquel) 25 mg QHS PO Last administered on 12/29/16 19: 54; Start 12/28/16 at 21:00; Stop 12/30/16 at 20:09; Status DC Baclofen (Lioresal) 20 mg QID PO Last administered on 12/31/16 20:06; Start 12/28/16 at 09:00 Divalproex Sodium (Depakote) 1,000 mg BID PO Last administered on 12/28/16 19 :24; Start 12/28/16 at 09:00; Stop 12/29/16 at 08:56; Status DC Acetaminophen (Tylenol) 650 mg PRN Q6HRS PRN PO PAIN / TEMP; Start 12/28/16 at 06:00; Status UNV Vitamin D (Vitamin D3) 1,000 unit DAILY PO Last administered on 12/31/16 08:20 ; Start 12/28/16 at 09:00 Famotidine (Pepcid) 20 mg DAILY PO Last administered on 12/31/16 08:21; Start 12/28/16 at 09:00 Magnesium Hydroxide (Milk Of Magnesia) 2,400 mg PRN QHS PRN PO CONSTIPATION; Start 12/28/16 at 06:00; Status Cancel Metoprolol Tartrate (Lopressor) 12.5 mg PRN BID PRN PO HYPERTENSION, SEE COMMENTS; Start 12/28/16 at 06:00; Stop 12/28/16 at 06:05; Status DC Polyethylene Glycol (miraLAX) 17 gm DAILY PO Last administered on 12/31/16 08: 21; Start 12/28/16 at 09:00 Simvastatin (Zocor) 5 mg QHS PO Last administered on 12/31/16 20:06; Start at 21:00 Valacyclovir HCl (Valtrex) 500 mg DAILY PO Last administered on 12/31/16 08:20 ; Start 12/28/16 at 09:00 Multivitamins/ Calcium (Thera-M Plus) 1 tab DAILY PO Last administered on 08:20; Start 12/28/16 at 09:00 Fosfomycin Tromethamine (Monurol) 3 gm 1X ONCE PO Last administered on 06:08; Start 12/28/16 at 06:00; Stop 12/28/16 at 06:02; Status DC Metoprolol Tartrate (Lopressor) 12.5 mg BID PO Last administered on 12/28/16 19:30; Start 12/28/16 at 09:00 Quetiapine Fumarate (SEROquel) 12.5 mg BID92 PO Last administered on 12/30/16 13:17; Start 12/29/16 at 09:00; Stop 12/30/16 at 20:09; Status DC Divalproex Sodium (Depakote Sprinkles) 1,000 mg BID PO Last administered on 20:05; Start 12/29/16 at 09:00 Nitrofurantoin Macrocrystals (Macrobid) 100 mg BID PO Last administered on 12/31 20:10; Start 12/31/16 at 12:00 Active Scripts Active Reported Seroquel (Quetiapine Fumarate) 25 Mg Tablet 12.5 Mg PO DAILY Pepcid (Famotidine) 20 Mg Tablet 20 Mg PO DAILY Multivitamins (Multivitamin) 1 Each Tablet 1 Each PO DAILY Metoprolol Tartrate 25 Mg Tablet 12.5 Mg PO BID PRN Vitamin D3 (Cholecalciferol (Vitamin D3)) 1,000 Unit Tablet 1,000 Unit PO DAILY Zocor (Simvastatin) 5 Mg Tablet 5 Mg PO HS Seroquel (Quetiapine Fumarate) 25 Mg Tablet 25 Mg PO QHS Milk Of Magnesia (Magnesium Hydroxide) 400 Mg/5 Ml Oral.susp 2,400 Mg PO PRN QHS PRN Tylenol (Acetaminophen) 325 Mg Tablet 650 Mg PO PRN Q6HRS PRN MDD 4000mg from all sources Valacyclovir (Valacyclovir Hcl) 500 Mg Tablet 500 Mg PO DAILY Polyethylene Glycol 3350 255 Gm Powder 17 Gm PO DAILY Fluvoxamine Maleate 25 Mg Tablet 25 Mg PO HS Depakote (Divalproex Sodium) 500 Mg Tablet.dr 1,000 Mg PO BID Baclofen 20 Mg Tablet 20 Mg PO QID Diagnosis: Problems: (1) Bipolar disorder, curr episode mixed, severe, with psychotic features (2) Anxiety disorder (3) Mild cognitive disorder (4) Impulse control disorder TRUPTI CARVAJAL MD Dec 31, 2016 20:58
[2017-01-01 06:04] VITALS: BP 152/75
[2017-01-01] MEDS: METOPROLOL TART IMMED RELEASE 25 MG TABLET PO SCH ×2 (06:25→20:33)
[2017-01-01] MEDS: MULTIVITAMIN with MINERAL TABLET. PO SCH (06:25)
[2017-01-01] MEDS: DIVALPROEX 125 MG CAP.SPRINK PO SCH ×2 (06:25→20:15)
[2017-01-01] MEDS: BACLOFEN 20 MG TABLET PO SCH ×4 (06:25→20:15)
[2017-01-01] MEDS: FAMOTIDINE 20 MG TABLET PO SCH (06:26)
[2017-01-01] MEDS: NITROFURANTOIN MONOHYD/M-CRYST 100 MG CAPSULE. PO SCH ×2 (06:26→20:17)
[2017-01-01] MEDS: POLYETHYLENE GLYCOL 3350 17 GM PACKET. PO SCH (06:26)
[2017-01-01] MEDS: CHOLECALCIFEROL (VITAMIN D3) 1,000 UNIT TABLET PO SCH (06:26)
[2017-01-01] MEDS: valACYclovir 500 MG TABLET. PO SCH (06:27)
[2017-01-01 16:15] VITALS: BP 106/62
[2017-01-01] MEDS: SIMVASTATIN 10 MG TABLET PO SCH (20:32)
--- NOTE | 2017-01-01 23:52 | PDOC ---
Exam Tim Demential Exam: Tim Note: Please also refer to the separate dictated note~for this date of service dictated separately.~Patient seen individually. Discussed the patient with Nursing staff reviewed the chart.~Reviewed interim history and current functioning. Reviewed vital signs,~Labs/ Radiology~and current medications noted below. Continue current treatment with the changes noted in the dictated addendum note Assessment: Vital Signs: Vital Signs Date Time Temp Pulse Resp B/P (MAP) Pulse Ox O2 Delivery O2 Flow Rate FiO2 01/01/17 20:33 80 106/62 01/01/17 16:15 97.4 16 97 12/30/16 16:24 Room Air I&O Intake and Output 01/02/17 07:00 Intake Total 1080 ml Balance 1080 ml Intake Oral 1080 ml # Voids 1 Current Medications: Meds: Current Medications Lorazepam (Ativan) 2 mg STK-MED ONCE .ROUTE ; Start 12/27/16 at 19:15; Stop at 19:16; Status DC Lorazepam (Ativan) 1 mg 1X ONCE IM Last administered on 12/27/16 19:20; Start 12/27/16 at 20:30; Stop 12/27/16 at 20:31; Status DC Cephalexin HCl (Keflex) 500 mg 1X ONCE PO Last administered on 12/27/16 21: 15; Start 12/27/16 at 21:15; Stop 12/27/16 at 21:16; Status DC Acetaminophen (Tylenol) 650 mg PRN Q6HRS PRN PO PAIN / TEMP; Start 12/27/16 at 22:30 Multi-Ingredient Ointment (Analgesic [place]) 1 william PRN QID PRN TP MUSCLE PAIN; Start 12/27/16 at 22:30 Al Hydroxide/Mg Hydroxide (Mylanta Plus Xs) 15 ml PRN AFTMEALHC PRN PO DYSPEPSIA; Start 12/27/16 at 22:30 Magnesium Hydroxide (Milk Of Magnesia) 2,400 mg PRN QHS PRN PO CONSTIPATION; Start 12/27/16 at 22:30 Fluvoxamine Maleate (Luvox) 25 mg HS PO Last administered on 12/29/16 19:54; Start 12/28/16 at 21:00; Stop 12/30/16 at 20:09; Status DC Quetiapine Fumarate (SEROquel) 12.5 mg DAILY PO Last administered on 09:50; Start 12/28/16 at 09:00; Stop 12/28/16 at 18:41; Status DC Quetiapine Fumarate (SEROquel) 25 mg QHS PO Last administered on 12/29/16 19: 54; Start 12/28/16 at 21:00; Stop 12/30/16 at 20:09; Status DC Baclofen (Lioresal) 20 mg QID PO Last administered on 01/01/17 20:15; Start 12/28/16 at 09:00 Divalproex Sodium (Depakote) 1,000 mg BID PO Last administered on 12/28/16 19 :24; Start 12/28/16 at 09:00; Stop 12/29/16 at 08:56; Status DC Acetaminophen (Tylenol) 650 mg PRN Q6HRS PRN PO PAIN / TEMP; Start 12/28/16 at 06:00; Status UNV Vitamin D (Vitamin D3) 1,000 unit DAILY PO Last administered on 01/01/17 06:26 ; Start 12/28/16 at 09:00 Famotidine (Pepcid) 20 mg DAILY PO Last administered on 01/01/17 06:26; Start 12/28/16 at 09:00 Magnesium Hydroxide (Milk Of Magnesia) 2,400 mg PRN QHS PRN PO CONSTIPATION; Start 12/28/16 at 06:00; Status Cancel Metoprolol Tartrate (Lopressor) 12.5 mg PRN BID PRN PO HYPERTENSION, SEE COMMENTS; Start 12/28/16 at 06:00; Stop 12/28/16 at 06:05; Status DC Polyethylene Glycol (miraLAX) 17 gm DAILY PO Last administered on 01/01/17 06: 26; Start 12/28/16 at 09:00 Simvastatin (Zocor) 5 mg QHS PO Last administered on 01/01/17 20:32; Start at 21:00 Valacyclovir HCl (Valtrex) 500 mg DAILY PO Last administered on 01/01/17 06:27 ; Start 12/28/16 at 09:00 Multivitamins/ Calcium (Thera-M Plus) 1 tab DAILY PO Last administered on 06:25; Start 12/28/16 at 09:00 Fosfomycin Tromethamine (Monurol) 3 gm 1X ONCE PO Last administered on 06:08; Start 12/28/16 at 06:00; Stop 12/28/16 at 06:02; Status DC Metoprolol Tartrate (Lopressor) 12.5 mg BID PO Last administered on 01/01/17 06:25; Start 12/28/16 at 09:00 Quetiapine Fumarate (SEROquel) 12.5 mg BID92 PO Last administered on 12/30/16 13:17; Start 12/29/16 at 09:00; Stop 12/30/16 at 20:09; Status DC Divalproex Sodium (Depakote Sprinkles) 1,000 mg BID PO Last administered on 20:15; Start 12/29/16 at 09:00 Nitrofurantoin Macrocrystals (Macrobid) 100 mg BID PO Last administered on 01/01 20:17; Start 12/31/16 at 12:00 Active Scripts Active Reported Seroquel (Quetiapine Fumarate) 25 Mg Tablet 12.5 Mg PO DAILY Pepcid (Famotidine) 20 Mg Tablet 20 Mg PO DAILY Multivitamins (Multivitamin) 1 Each Tablet 1 Each PO DAILY Metoprolol Tartrate 25 Mg Tablet 12.5 Mg PO BID PRN Vitamin D3 (Cholecalciferol (Vitamin D3)) 1,000 Unit Tablet 1,000 Unit PO DAILY Zocor (Simvastatin) 5 Mg Tablet 5 Mg PO HS Seroquel (Quetiapine Fumarate) 25 Mg Tablet 25 Mg PO QHS Milk Of Magnesia (Magnesium Hydroxide) 400 Mg/5 Ml Oral.susp 2,400 Mg PO PRN QHS PRN Tylenol (Acetaminophen) 325 Mg Tablet 650 Mg PO PRN Q6HRS PRN MDD 4000mg from all sources Valacyclovir (Valacyclovir Hcl) 500 Mg Tablet 500 Mg PO DAILY Polyethylene Glycol 3350 255 Gm Powder 17 Gm PO DAILY Fluvoxamine Maleate 25 Mg Tablet 25 Mg PO HS Depakote (Divalproex Sodium) 500 Mg Tablet.dr 1,000 Mg PO BID Baclofen 20 Mg Tablet 20 Mg PO QID Diagnosis: Problems: (1) Urinary tract infection (2) Bipolar disorder, curr episode mixed, severe, with psychotic features (3) Anxiety disorder (4) Mild cognitive disorder (5) Impulse control disorder TRUPTI CARVAJAL MD Jan 01, 2017 23:52
[2017-01-02 06:17] VITALS: BP 147/88
[2017-01-02] MEDS: DIVALPROEX 125 MG CAP.SPRINK PO SCH ×2 (07:59→20:29)
[2017-01-02] MEDS: POLYETHYLENE GLYCOL 3350 17 GM PACKET. PO SCH (07:59)
[2017-01-02] MEDS: METOPROLOL TART IMMED RELEASE 25 MG TABLET PO SCH ×2 (07:59→20:28)
[2017-01-02] MEDS: BACLOFEN 20 MG TABLET PO SCH ×4 (07:59→20:30)
[2017-01-02] MEDS: FAMOTIDINE 20 MG TABLET PO SCH (08:00)
[2017-01-02] MEDS: MULTIVITAMIN with MINERAL TABLET. PO SCH (08:00)
[2017-01-02] MEDS: NITROFURANTOIN MONOHYD/M-CRYST 100 MG CAPSULE. PO SCH ×2 (08:00→20:27)
[2017-01-02] MEDS: valACYclovir 500 MG TABLET. PO SCH (08:00)
[2017-01-02] MEDS: CHOLECALCIFEROL (VITAMIN D3) 1,000 UNIT TABLET PO SCH (08:00)
[2017-01-02] MEDS: ACETAMINOPHEN 325 MG TABLET PO PRN (09:09)
[2017-01-02 16:39] VITALS: BP 122/77
--- NOTE | 2017-01-02 18:06 | PDOC ---
Exam Tim Demential Exam: Tim Note: Please also refer to the separate dictated note~for this date of service dictated separately.~Patient seen individually. Discussed the patient with Nursing staff reviewed the chart.~Reviewed interim history and current functioning. Reviewed vital signs,~Labs/ Radiology~and current medications noted below. Continue current treatment with the changes noted in the dictated addendum note Assessment: Vital Signs: Vital Signs Date Time Temp Pulse Resp B/P (MAP) Pulse Ox O2 Delivery O2 Flow Rate FiO2 01/02/17 16:39 97.5 76 17 122/77 (92) 95 12/30/16 16:24 Room Air I&O Intake and Output 01/03/17 07:00 Intake Total 840 ml Balance 840 ml Intake Oral 840 ml Current Medications: Meds: Current Medications Lorazepam (Ativan) 2 mg STK-MED ONCE .ROUTE ; Start 12/27/16 at 19:15; Stop at 19:16; Status DC Lorazepam (Ativan) 1 mg 1X ONCE IM Last administered on 12/27/16 19:20; Start 12/27/16 at 20:30; Stop 12/27/16 at 20:31; Status DC Cephalexin HCl (Keflex) 500 mg 1X ONCE PO Last administered on 12/27/16 21: 15; Start 12/27/16 at 21:15; Stop 12/27/16 at 21:16; Status DC Acetaminophen (Tylenol) 650 mg PRN Q6HRS PRN PO PAIN / TEMP Last administered on 01/02/17 09:09; Start 12/27/16 at 22:30 Multi-Ingredient Ointment (Analgesic [place]) 1 william PRN QID PRN TP MUSCLE PAIN; Start 12/27/16 at 22:30 Al Hydroxide/Mg Hydroxide (Mylanta Plus Xs) 15 ml PRN AFTMEALHC PRN PO DYSPEPSIA; Start 12/27/16 at 22:30 Magnesium Hydroxide (Milk Of Magnesia) 2,400 mg PRN QHS PRN PO CONSTIPATION; Start 12/27/16 at 22:30 Fluvoxamine Maleate (Luvox) 25 mg HS PO Last administered on 12/29/16 19:54; Start 12/28/16 at 21:00; Stop 12/30/16 at 20:09; Status DC Quetiapine Fumarate (SEROquel) 12.5 mg DAILY PO Last administered on 09:50; Start 12/28/16 at 09:00; Stop 12/28/16 at 18:41; Status DC Quetiapine Fumarate (SEROquel) 25 mg QHS PO Last administered on 12/29/16 19: 54; Start 12/28/16 at 21:00; Stop 12/30/16 at 20:09; Status DC Baclofen (Lioresal) 20 mg QID PO Last administered on 01/02/17 13:27; Start 12/28/16 at 09:00 Divalproex Sodium (Depakote) 1,000 mg BID PO Last administered on 12/28/16 19 :24; Start 12/28/16 at 09:00; Stop 12/29/16 at 08:56; Status DC Acetaminophen (Tylenol) 650 mg PRN Q6HRS PRN PO PAIN / TEMP; Start 12/28/16 at 06:00; Status UNV Vitamin D (Vitamin D3) 1,000 unit DAILY PO Last administered on 01/02/17 08:00 ; Start 12/28/16 at 09:00 Famotidine (Pepcid) 20 mg DAILY PO Last administered on 01/02/17 08:00; Start 12/28/16 at 09:00 Magnesium Hydroxide (Milk Of Magnesia) 2,400 mg PRN QHS PRN PO CONSTIPATION; Start 12/28/16 at 06:00; Status Cancel Metoprolol Tartrate (Lopressor) 12.5 mg PRN BID PRN PO HYPERTENSION, SEE COMMENTS; Start 12/28/16 at 06:00; Stop 12/28/16 at 06:05; Status DC Polyethylene Glycol (miraLAX) 17 gm DAILY PO Last administered on 01/02/17 07: 59; Start 12/28/16 at 09:00 Simvastatin (Zocor) 5 mg QHS PO Last administered on 01/01/17 20:32; Start at 21:00 Valacyclovir HCl (Valtrex) 500 mg DAILY PO Last administered on 01/02/17 08:00 ; Start 12/28/16 at 09:00 Multivitamins/ Calcium (Thera-M Plus) 1 tab DAILY PO Last administered on 08:00; Start 12/28/16 at 09:00 Fosfomycin Tromethamine (Monurol) 3 gm 1X ONCE PO Last administered on 06:08; Start 12/28/16 at 06:00; Stop 12/28/16 at 06:02; Status DC Metoprolol Tartrate (Lopressor) 12.5 mg BID PO Last administered on 01/02/17 07:59; Start 12/28/16 at 09:00 Quetiapine Fumarate (SEROquel) 12.5 mg BID92 PO Last administered on 12/30/16 13:17; Start 12/29/16 at 09:00; Stop 12/30/16 at 20:09; Status DC Divalproex Sodium (Depakote Sprinkles) 1,000 mg BID PO Last administered on 07:59; Start 12/29/16 at 09:00 Nitrofurantoin Macrocrystals (Macrobid) 100 mg BID PO Last administered on 01/02 08:00; Start 12/31/16 at 12:00 Atorvastatin Calcium (Lipitor) 20 mg QHS PO ; Start 01/02/17 at 21:00 Active Scripts Active Reported Seroquel (Quetiapine Fumarate) 25 Mg Tablet 12.5 Mg PO DAILY Pepcid (Famotidine) 20 Mg Tablet 20 Mg PO DAILY Multivitamins (Multivitamin) 1 Each Tablet 1 Each PO DAILY Metoprolol Tartrate 25 Mg Tablet 12.5 Mg PO BID PRN Vitamin D3 (Cholecalciferol (Vitamin D3)) 1,000 Unit Tablet 1,000 Unit PO DAILY Zocor (Simvastatin) 5 Mg Tablet 5 Mg PO HS Seroquel (Quetiapine Fumarate) 25 Mg Tablet 25 Mg PO QHS Milk Of Magnesia (Magnesium Hydroxide) 400 Mg/5 Ml Oral.susp 2,400 Mg PO PRN QHS PRN Tylenol (Acetaminophen) 325 Mg Tablet 650 Mg PO PRN Q6HRS PRN MDD 4000mg from all sources Valacyclovir (Valacyclovir Hcl) 500 Mg Tablet 500 Mg PO DAILY Polyethylene Glycol 3350 255 Gm Powder 17 Gm PO DAILY Fluvoxamine Maleate 25 Mg Tablet 25 Mg PO HS Depakote (Divalproex Sodium) 500 Mg Tablet.dr 1,000 Mg PO BID Baclofen 20 Mg Tablet 20 Mg PO QID Diagnosis: Problems: (1) Impulse control disorder (2) Mild cognitive disorder (3) Anxiety disorder (4) Urinary tract infection (5) Bipolar disorder, curr episode mixed, severe, with psychotic features TRUPTI CARVAJAL MD Jan 02, 2017 18:06
[2017-01-02] MEDS: SIMVASTATIN 10 MG TABLET PO SCH (20:28)
[2017-01-02] MEDS: ATORVASTATIN CALCIUM 20 MG TABLET PO SCH (20:31)
[2017-01-03 06:25] VITALS: BP 169/90
[2017-01-03] MEDS: DIVALPROEX 125 MG CAP.SPRINK PO SCH ×2 (08:33→19:45)
[2017-01-03] MEDS: CHOLECALCIFEROL (VITAMIN D3) 1,000 UNIT TABLET PO SCH (08:34)
[2017-01-03] MEDS: valACYclovir 500 MG TABLET. PO SCH (08:34)
[2017-01-03] MEDS: NITROFURANTOIN MONOHYD/M-CRYST 100 MG CAPSULE. PO SCH ×2 (08:34→19:47)
[2017-01-03] MEDS: BACLOFEN 20 MG TABLET PO SCH ×4 (08:34→19:45)
[2017-01-03] MEDS: MULTIVITAMIN with MINERAL TABLET. PO SCH (08:34)
[2017-01-03] MEDS: FAMOTIDINE 20 MG TABLET PO SCH (08:34)
[2017-01-03] MEDS: POLYETHYLENE GLYCOL 3350 17 GM PACKET. PO SCH (08:35)
[2017-01-03] MEDS: METOPROLOL TART IMMED RELEASE 25 MG TABLET PO SCH ×2 (08:35→19:47)
--- NOTE | 2017-01-03 10:36 | PN ---
DATE: 12/30/2016 PSYCHIATRIC PROGRESS NOTE This late entry date of service 12/30/2016 covers elements, not covered in my initial of 12/30/2016. Overall, per nursing report, the patient is compliant with her medications, reasonably oriented, no name calling noted. REVIEW OF SYSTEMS: Ambulation impaired, in a Broda chair. No CV, , pulmonary, eye, ENT system symptoms on review, somewhat hyperverbal. MENTAL STATUS EXAM: Oriented to herself and situations. Speech coherent, rapid at times. Abstraction fair, computation impaired, language function intact, attention span short. Mood and affect somewhat labile, anxious. I returned a call from the patient's sister, Vilma, and Alycia, who was unavailable. I had a lengthy discussion, the family is extremely concerned about the patient's psychotropics, wants her off the Seroquel and Luvox. We discussed pros and cons. The patient does have a UTI, which has been treated and hopefully, this could have been worsening, her psychiatric symptoms should improve just with resolution of the UTI. We will go ahead and stop the Seroquel and Luvox, continue the Depakote for now, Depakote Sprinkles 1000 mg b.i.d. with the level of 83, therapeutic. IMPRESSION: Unchanged. PLAN: As above. Discussed the patient's diagnosis, treatment plan, and options at length with the patient's sister, answered her questions. Reviewed drug interactions. Risk/benefit ratio favors no further change. TRUPTI CARVAJAL MD DR: ABBIE/juliana JOB#: [id number] / [id number]
--- NOTE | 2017-01-03 11:11 | PN ---
DATE: 12/31/2016 PSYCHIATRIC PROGRESS NOTE This late entry for 12/31/2016, covers elements not covered in my initial note of 12/31/2016. SUBJECTIVE: I met with the patient evening of 12/31/2016. Per nursing report, the patient has not been name calling, less labile, still somewhat irritable at times. REVIEW OF SYSTEMS: Ambulation impaired, in a Broda chair. No CV, , pulmonary, eye, ENT system symptoms on review. Reliability varies. MENTAL STATUS EXAM: Oriented to herself and situation. Speech has some latency, often responses monosyllabic, other times pressured. Abstraction fair, computation impaired, language function intact. Mood and affect still somewhat anxious, a little obsessive, at times labile in her mood, but improved. Remains on Macrobid for UTI. IMPRESSION: Unchanged from initial note. PLAN: Continue current psychotropics mentioned in my initial note. Reviewed drug interactions. Risk/benefit ratio favors no further change for now. TRUPTI CARVAJAL MD DR: ABBIE/juliana JOB#: [id number] / [id number]
[2017-01-03 16:05] VITALS: BP 111/61
[2017-01-03] MEDS: ATORVASTATIN CALCIUM 20 MG TABLET PO SCH (19:45)
[2017-01-03] MEDS: SIMVASTATIN 10 MG TABLET PO SCH (19:47)
--- NOTE | 2017-01-03 20:05 | PDOC ---
Exam Tim Demential Exam: Tim Note: Please also refer to the separate dictated note~for this date of service dictated separately.~Patient seen individually. Discussed the patient with Nursing staff reviewed the chart.~Reviewed interim history and current functioning. Reviewed vital signs,~Labs/ Radiology~and current medications noted below. Continue current treatment with the changes noted in the dictated addendum note Assessment: Vital Signs: Vital Signs Date Time Temp Pulse Resp B/P (MAP) Pulse Ox O2 Delivery O2 Flow Rate FiO2 01/03/17 19:47 72 111/61 01/03/17 16:05 97.7 20 98 12/30/16 16:24 Room Air I&O Intake and Output 01/04/17 07:00 Intake Total 1140 ml Balance 1140 ml Intake Oral 1140 ml Current Medications: Meds: Current Medications Lorazepam (Ativan) 2 mg STK-MED ONCE .ROUTE ; Start 12/27/16 at 19:15; Stop at 19:16; Status DC Lorazepam (Ativan) 1 mg 1X ONCE IM Last administered on 12/27/16 19:20; Start 12/27/16 at 20:30; Stop 12/27/16 at 20:31; Status DC Cephalexin HCl (Keflex) 500 mg 1X ONCE PO Last administered on 12/27/16 21: 15; Start 12/27/16 at 21:15; Stop 12/27/16 at 21:16; Status DC Acetaminophen (Tylenol) 650 mg PRN Q6HRS PRN PO PAIN / TEMP Last administered on 01/02/17 09:09; Start 12/27/16 at 22:30 Multi-Ingredient Ointment (Analgesic [place]) 1 william PRN QID PRN TP MUSCLE PAIN; Start 12/27/16 at 22:30 Al Hydroxide/Mg Hydroxide (Mylanta Plus Xs) 15 ml PRN AFTMEALHC PRN PO DYSPEPSIA; Start 12/27/16 at 22:30 Magnesium Hydroxide (Milk Of Magnesia) 2,400 mg PRN QHS PRN PO CONSTIPATION; Start 12/27/16 at 22:30 Fluvoxamine Maleate (Luvox) 25 mg HS PO Last administered on 12/29/16 19:54; Start 12/28/16 at 21:00; Stop 12/30/16 at 20:09; Status DC Quetiapine Fumarate (SEROquel) 12.5 mg DAILY PO Last administered on 09:50; Start 12/28/16 at 09:00; Stop 12/28/16 at 18:41; Status DC Quetiapine Fumarate (SEROquel) 25 mg QHS PO Last administered on 12/29/16 19: 54; Start 12/28/16 at 21:00; Stop 12/30/16 at 20:09; Status DC Baclofen (Lioresal) 20 mg QID PO Last administered on 01/03/17 19:45; Start 12/28/16 at 09:00 Divalproex Sodium (Depakote) 1,000 mg BID PO Last administered on 12/28/16 19 :24; Start 12/28/16 at 09:00; Stop 12/29/16 at 08:56; Status DC Acetaminophen (Tylenol) 650 mg PRN Q6HRS PRN PO PAIN / TEMP; Start 12/28/16 at 06:00; Status UNV Vitamin D (Vitamin D3) 1,000 unit DAILY PO Last administered on 01/03/17 08:34 ; Start 12/28/16 at 09:00 Famotidine (Pepcid) 20 mg DAILY PO Last administered on 01/03/17 08:34; Start 12/28/16 at 09:00 Magnesium Hydroxide (Milk Of Magnesia) 2,400 mg PRN QHS PRN PO CONSTIPATION; Start 12/28/16 at 06:00; Status Cancel Metoprolol Tartrate (Lopressor) 12.5 mg PRN BID PRN PO HYPERTENSION, SEE COMMENTS; Start 12/28/16 at 06:00; Stop 12/28/16 at 06:05; Status DC Polyethylene Glycol (miraLAX) 17 gm DAILY PO Last administered on 01/03/17 08: 35; Start 12/28/16 at 09:00 Simvastatin (Zocor) 5 mg QHS PO Last administered on 01/03/17 19:47; Start at 21:00 Valacyclovir HCl (Valtrex) 500 mg DAILY PO Last administered on 01/03/17 08:34 ; Start 12/28/16 at 09:00 Multivitamins/ Calcium (Thera-M Plus) 1 tab DAILY PO Last administered on 08:34; Start 12/28/16 at 09:00 Fosfomycin Tromethamine (Monurol) 3 gm 1X ONCE PO Last administered on 06:08; Start 12/28/16 at 06:00; Stop 12/28/16 at 06:02; Status DC Metoprolol Tartrate (Lopressor) 12.5 mg BID PO Last administered on 01/03/17 19:47; Start 12/28/16 at 09:00 Quetiapine Fumarate (SEROquel) 12.5 mg BID92 PO Last administered on 12/30/16 13:17; Start 12/29/16 at 09:00; Stop 12/30/16 at 20:09; Status DC Divalproex Sodium (Depakote Sprinkles) 1,000 mg BID PO Last administered on 19:45; Start 12/29/16 at 09:00 Nitrofurantoin Macrocrystals (Macrobid) 100 mg BID PO Last administered on 01/03 19:47; Start 12/31/16 at 12:00 Atorvastatin Calcium (Lipitor) 20 mg QHS PO Last administered on 01/03/17 19: 45; Start 01/02/17 at 21:00 Active Scripts Active Reported Seroquel (Quetiapine Fumarate) 25 Mg Tablet 12.5 Mg PO DAILY Pepcid (Famotidine) 20 Mg Tablet 20 Mg PO DAILY Multivitamins (Multivitamin) 1 Each Tablet 1 Each PO DAILY Metoprolol Tartrate 25 Mg Tablet 12.5 Mg PO BID PRN Vitamin D3 (Cholecalciferol (Vitamin D3)) 1,000 Unit Tablet 1,000 Unit PO DAILY Zocor (Simvastatin) 5 Mg Tablet 5 Mg PO HS Seroquel (Quetiapine Fumarate) 25 Mg Tablet 25 Mg PO QHS Milk Of Magnesia (Magnesium Hydroxide) 400 Mg/5 Ml Oral.susp 2,400 Mg PO PRN QHS PRN Tylenol (Acetaminophen) 325 Mg Tablet 650 Mg PO PRN Q6HRS PRN MDD 4000mg from all sources Valacyclovir (Valacyclovir Hcl) 500 Mg Tablet 500 Mg PO DAILY Polyethylene Glycol 3350 255 Gm Powder 17 Gm PO DAILY Fluvoxamine Maleate 25 Mg Tablet 25 Mg PO HS Depakote (Divalproex Sodium) 500 Mg Tablet.dr 1,000 Mg PO BID Baclofen 20 Mg Tablet 20 Mg PO QID Diagnosis: Problems: (1) Urinary tract infection (2) Anxiety disorder (3) Mild cognitive disorder (4) Bipolar disorder, curr episode mixed, severe, with psychotic features TRUPTI CARVAJAL MD Jan 03, 2017 20:05
--- NOTE | 2017-01-04 00:27 | PN ---
DATE: 01/01/2017 PSYCHIATRIC PROGRESS NOTE This is a late entry for 01/01/2017, covers elements not covered in my initial note of 01/01/2017. SUBJECTIVE: I met with the patient in the evening of 01/01/2017. The patient remains somewhat anxious, at times labile, but redirectable. She is not yelling or threatening. REVIEW OF SYSTEMS: Ambulation impaired, in a Broda chair. No CV, , pulmonary, eye, ENT system symptoms on review. Reliability is fair. MENTAL STATUS EXAM: Oriented to herself and situation. Speech coherent, abstraction fair, computation impaired, language function intact. Mood and affect anxious, somewhat labile, but improved. LABORATORY DATA: Reviewed. IMPRESSION: Unchanged from initial note. PLAN: Continue Depakote Sprinkles 1000 mg b.i.d. Valproic acid level therapeutic at 83. Reviewed drug interactions. Risk/benefit ratio favors no further change. TRUPTI CARVAJAL MD DR: ABBIE/juliana JOB#: [id number] / [id number]
[2017-01-04 06:51] VITALS: BP 115/67
[2017-01-04 07:46] LABS: BASO % 1 % (0-3); EOS # 0.1 x10^3/uL (0.0-0.7); EOS % 3 % (0-3); HEMATOCRIT 41.8 % (36.0-47.0); HEMOGLOBIN 14.5 g/dL (12.0-15.5); LYMPH # 1.3 x10^3/uL (1.0-4.8); LYMPH % 37 % (24-48); MEAN CORPUSCULAR HEMOGLOBIN 32 pg (25-35); MEAN CORPUSCULAR HGB CONC 35 g/dL (31-37); MEAN CORPUSCULAR VOLUME 93 fL (79-100); MONO # 0.4 x10^3/uL (0.0-1.1); MONO % 12 % (0-9); NEUT # 1.8 x10^3uL (1.8-7.7); NEUT % 49 % (31-73); PLATELET COUNT 127 x10^3/uL (140-400); RED CELL DISTRIBUTION WIDTH 13.7 % (11.5-14.5); WHITE BLOOD COUNT 3.7 x10^3/uL (4.0-11.0)
[2017-01-04] MEDS: NITROFURANTOIN MONOHYD/M-CRYST 100 MG CAPSULE. PO SCH ×2 (08:03→19:38)
[2017-01-04] MEDS: DIVALPROEX 125 MG CAP.SPRINK PO SCH ×2 (08:04→19:34)
[2017-01-04] MEDS: MULTIVITAMIN with MINERAL TABLET. PO SCH (08:04)
[2017-01-04] MEDS: BACLOFEN 20 MG TABLET PO SCH ×4 (08:04→19:35)
[2017-01-04] MEDS: CHOLECALCIFEROL (VITAMIN D3) 1,000 UNIT TABLET PO SCH (08:04)
[2017-01-04] MEDS: METOPROLOL TART IMMED RELEASE 25 MG TABLET PO SCH ×2 (08:05→19:37)
[2017-01-04] MEDS: valACYclovir 500 MG TABLET. PO SCH (08:05)
[2017-01-04] MEDS: POLYETHYLENE GLYCOL 3350 17 GM PACKET. PO SCH (08:05)
[2017-01-04] MEDS: FAMOTIDINE 20 MG TABLET PO SCH (08:07)
[2017-01-04 08:12] LABS: ALBUMIN 3.2 g/dL (3.4-5.0); CALCIUM 8.7 mg/dL (8.5-10.1); CREATININE 0.5 mg/dL (0.6-1.0); GFR 126.3; POTASSIUM 3.4 mmol/L (3.5-5.1); TOTAL BILIRUBIN 0.3 mg/dL (0.2-1.0); TOTAL PROTEIN 6.5 g/dL (6.4-8.2)
--- NOTE | 2017-01-04 09:50 | PN ---
DATE: 01/02/2017 This late entry for 01/02/2017 covers elements not covered in my initial note of 01/02/2017. SUBJECTIVE: I met with the patient the evening of 01/02/2017. The patient continues to be somewhat anxious with some mood lability, but redirectable. She has not been aggressive. REVIEW OF SYSTEMS: Ambulation impaired, in a Broda chair. No CV, , pulmonary, eye, ENT system symptoms on review. MENTAL STATUS EXAMINATION: Reasonably oriented to place, situation; does have short term memory deficits. Speech coherent at times, pressured. Abstraction fair, computation impaired, language function intact, attention span short. Mood and affect lability is improved. LABORATORY DATA: Reviewed. IMPRESSION: Unchanged from my initial note including urinary tract infection, which is being treated. PLAN: Continue current psychotropics, Depakote Sprinkles 1000 mg b.i.d., level therapeutic at 83. Reviewed drug interactions and risk benefit ratio, favors no further change. TRUPTI CARVAJAL MD DR: ABBIE/juliana JOB#: [id number] / [id number]
[2017-01-04 16:41] VITALS: BP 111/66
[2017-01-04] MEDS: SIMVASTATIN 10 MG TABLET PO SCH (19:36)
[2017-01-04] MEDS: ATORVASTATIN CALCIUM 20 MG TABLET PO SCH (19:36)
[2017-01-04] MEDS: POTASSIUM CHLORIDE 20 MEQ TABLET.ER. PO SCH (19:39)
--- NOTE | 2017-01-04 21:48 | PDOC ---
Exam Tim Demential Exam: Tim Note: Please also refer to the separate dictated note~for this date of service dictated separately.~Patient seen individually. Discussed the patient with Nursing staff reviewed the chart.~Reviewed interim history and current functioning. Reviewed vital signs,~Labs/ Radiology~and current medications noted below. Continue current treatment with the changes noted in the dictated addendum note Assessment: Vital Signs: Vital Signs Date Time Temp Pulse Resp B/P (MAP) Pulse Ox O2 Delivery O2 Flow Rate FiO2 01/04/17 19:37 72 111/66 01/04/17 16:41 97.7 20 100 12/30/16 16:24 Room Air I&O Intake and Output 01/05/17 07:00 Intake Total 1560 ml Balance 1560 ml Intake Oral 1560 ml # Bowel Movements 1 Labs: Laboratory Tests Test 01/04/17 07:39 White Blood Count 3.7 x10^3/uL (4.0-11.0) L Red Blood Count 4.50 x10^6/uL (3.50-5.40) Hemoglobin 14.5 g/dL (12.0-15.5) Hematocrit 41.8 % (36.0-47.0) Mean Corpuscular Volume 93 fL (79-100) Mean Corpuscular Hemoglobin 32 pg (25-35) Mean Corpuscular Hemoglobin Concent 35 g/dL (31-37) Red Cell Distribution Width 13.7 % (11.5-14.5) Platelet Count 127 x10^3/uL (140-400) L Neutrophils (%) (Auto) 49 % (31-73) Lymphocytes (%) (Auto) 37 % (24-48) Monocytes (%) (Auto) 12 % (0-9) H Eosinophils (%) (Auto) 3 % (0-3) Basophils (%) (Auto) 1 % (0-3) Neutrophils # (Auto) 1.8 x10^3uL (1.8-7.7) Lymphocytes # (Auto) 1.3 x10^3/uL (1.0-4.8) Monocytes # (Auto) 0.4 x10^3/uL (0.0-1.1) Eosinophils # (Auto) 0.1 x10^3/uL (0.0-0.7) Basophils # (Auto) 0.0 x10^3/uL (0.0-0.2) Sodium Level 140 mmol/L (136-145) Potassium Level 3.4 mmol/L (3.5-5.1) L Chloride Level 102 mmol/L (98-107) Carbon Dioxide Level 32 mmol/L (21-32) Anion Gap 6 (6-14) Blood Urea Nitrogen 8 mg/dL (7-20) Creatinine 0.5 mg/dL (0.6-1.0) L Estimated GFR (Cockcroft-Gault) 126.3 BUN/Creatinine Ratio 16 (6-20) Glucose Level 48 mg/dL (70-99) L Calcium Level 8.7 mg/dL (8.5-10.1) Total Bilirubin 0.3 mg/dL (0.2-1.0) Aspartate Amino Transferase (AST) 9 U/L (15-37) L Alanine Aminotransferase (ALT) 13 U/L (14-59) L Alkaline Phosphatase 58 U/L (46-116) Total Protein 6.5 g/dL (6.4-8.2) Albumin 3.2 g/dL (3.4-5.0) L Albumin/Globulin Ratio 1.0 (1.0-1.7) Current Medications: Meds: Current Medications Lorazepam (Ativan) 2 mg STK-MED ONCE .ROUTE ; Start 12/27/16 at 19:15; Stop at 19:16; Status DC Lorazepam (Ativan) 1 mg 1X ONCE IM Last administered on 12/27/16 19:20; Start 12/27/16 at 20:30; Stop 12/27/16 at 20:31; Status DC Cephalexin HCl (Keflex) 500 mg 1X ONCE PO Last administered on 12/27/16 21: 15; Start 12/27/16 at 21:15; Stop 12/27/16 at 21:16; Status DC Acetaminophen (Tylenol) 650 mg PRN Q6HRS PRN PO PAIN / TEMP Last administered on 01/02/17 09:09; Start 12/27/16 at 22:30 Multi-Ingredient Ointment (Analgesic [place]) 1 william PRN QID PRN TP MUSCLE PAIN; Start 12/27/16 at 22:30 Al Hydroxide/Mg Hydroxide (Mylanta Plus Xs) 15 ml PRN AFTMEALHC PRN PO DYSPEPSIA; Start 12/27/16 at 22:30 Magnesium Hydroxide (Milk Of Magnesia) 2,400 mg PRN QHS PRN PO CONSTIPATION; Start 12/27/16 at 22:30 Fluvoxamine Maleate (Luvox) 25 mg HS PO Last administered on 12/29/16 19:54; Start 12/28/16 at 21:00; Stop 12/30/16 at 20:09; Status DC Quetiapine Fumarate (SEROquel) 12.5 mg DAILY PO Last administered on 09:50; Start 12/28/16 at 09:00; Stop 12/28/16 at 18:41; Status DC Quetiapine Fumarate (SEROquel) 25 mg QHS PO Last administered on 12/29/16 19: 54; Start 12/28/16 at 21:00; Stop 12/30/16 at 20:09; Status DC Baclofen (Lioresal) 20 mg QID PO Last administered on 01/04/17 19:35; Start 12/28/16 at 09:00 Divalproex Sodium (Depakote) 1,000 mg BID PO Last administered on 12/28/16 19 :24; Start 12/28/16 at 09:00; Stop 12/29/16 at 08:56; Status DC Acetaminophen (Tylenol) 650 mg PRN Q6HRS PRN PO PAIN / TEMP; Start 12/28/16 at 06:00; Status UNV Vitamin D (Vitamin D3) 1,000 unit DAILY PO Last administered on 01/04/17 08:04 ; Start 12/28/16 at 09:00 Famotidine (Pepcid) 20 mg DAILY PO Last administered on 01/04/17 08:07; Start 12/28/16 at 09:00 Magnesium Hydroxide (Milk Of Magnesia) 2,400 mg PRN QHS PRN PO CONSTIPATION; Start 12/28/16 at 06:00; Status Cancel Metoprolol Tartrate (Lopressor) 12.5 mg PRN BID PRN PO HYPERTENSION, SEE COMMENTS; Start 12/28/16 at 06:00; Stop 12/28/16 at 06:05; Status DC Polyethylene Glycol (miraLAX) 17 gm DAILY PO Last administered on 01/04/17 08: 05; Start 12/28/16 at 09:00 Simvastatin (Zocor) 5 mg QHS PO Last administered on 01/04/17 19:36; Start at 21:00 Valacyclovir HCl (Valtrex) 500 mg DAILY PO Last administered on 01/04/17 08:05 ; Start 12/28/16 at 09:00 Multivitamins/ Calcium (Thera-M Plus) 1 tab DAILY PO Last administered on 08:04; Start 12/28/16 at 09:00 Fosfomycin Tromethamine (Monurol) 3 gm 1X ONCE PO Last administered on 06:08; Start 12/28/16 at 06:00; Stop 12/28/16 at 06:02; Status DC Metoprolol Tartrate (Lopressor) 12.5 mg BID PO Last administered on 01/04/17 19:37; Start 12/28/16 at 09:00 Quetiapine Fumarate (SEROquel) 12.5 mg BID92 PO Last administered on 12/30/16 13:17; Start 12/29/16 at 09:00; Stop 12/30/16 at 20:09; Status DC Divalproex Sodium (Depakote Sprinkles) 1,000 mg BID PO Last administered on 19:34; Start 12/29/16 at 09:00 Nitrofurantoin Macrocrystals (Macrobid) 100 mg BID PO Last administered on 01/04 19:38; Start 12/31/16 at 12:00; Stop 01/07/17 at 11:59 Atorvastatin Calcium (Lipitor) 20 mg QHS PO Last administered on 01/04/17 19: 36; Start 01/02/17 at 21:00 Potassium Chloride (Klor-Con) 20 meq BID PO Last administered on 01/04/17 19: 39; Start 01/04/17 at 21:00 Active Scripts Active Reported Seroquel (Quetiapine Fumarate) 25 Mg Tablet 12.5 Mg PO DAILY Pepcid (Famotidine) 20 Mg Tablet 20 Mg PO DAILY Multivitamins (Multivitamin) 1 Each Tablet 1 Each PO DAILY Metoprolol Tartrate 25 Mg Tablet 12.5 Mg PO BID PRN Vitamin D3 (Cholecalciferol (Vitamin D3)) 1,000 Unit Tablet 1,000 Unit PO DAILY Zocor (Simvastatin) 5 Mg Tablet 5 Mg PO HS Seroquel (Quetiapine Fumarate) 25 Mg Tablet 25 Mg PO QHS Milk Of Magnesia (Magnesium Hydroxide) 400 Mg/5 Ml Oral.susp 2,400 Mg PO PRN QHS PRN Tylenol (Acetaminophen) 325 Mg Tablet 650 Mg PO PRN Q6HRS PRN MDD 4000mg from all sources Valacyclovir (Valacyclovir Hcl) 500 Mg Tablet 500 Mg PO DAILY Polyethylene Glycol 3350 255 Gm Powder 17 Gm PO DAILY Fluvoxamine Maleate 25 Mg Tablet 25 Mg PO HS Depakote (Divalproex Sodium) 500 Mg Tablet.dr 1,000 Mg PO BID Baclofen 20 Mg Tablet 20 Mg PO QID Diagnosis: Problems: (1) Bipolar disorder, curr episode mixed, severe, with psychotic features (2) Anxiety disorder (3) Mild cognitive disorder (4) Impulse control disorder TRUPTI CARVAJAL MD Jan 04, 2017 21:48
[2017-01-05 06:20] VITALS: BP 103/66
[2017-01-05] MEDS: BACLOFEN 20 MG TABLET PO SCH ×4 (08:43→20:38)
[2017-01-05] MEDS: DIVALPROEX 125 MG CAP.SPRINK PO SCH ×2 (08:43→20:38)
[2017-01-05] MEDS: POLYETHYLENE GLYCOL 3350 17 GM PACKET. PO SCH (08:43)
[2017-01-05] MEDS: POTASSIUM CHLORIDE 20 MEQ TABLET.ER. PO SCH ×2 (08:43→20:38)
[2017-01-05] MEDS: MULTIVITAMIN with MINERAL TABLET. PO SCH (08:43)
[2017-01-05] MEDS: CHOLECALCIFEROL (VITAMIN D3) 1,000 UNIT TABLET PO SCH (08:43)
[2017-01-05] MEDS: FAMOTIDINE 20 MG TABLET PO SCH (08:43)
[2017-01-05] MEDS: NITROFURANTOIN MONOHYD/M-CRYST 100 MG CAPSULE. PO SCH ×2 (08:44→20:39)
[2017-01-05 08:50] VITALS: BP 106/71
[2017-01-05] MEDS: METOPROLOL TART IMMED RELEASE 25 MG TABLET PO SCH ×2 (08:52→20:41)
[2017-01-05] MEDS: valACYclovir 500 MG TABLET. PO SCH (08:53)
--- NOTE | 2017-01-05 09:53 | PN ---
DATE: 01/03/2017 PSYCHIATRIC PROGRESS NOTE This late entry for 01/03/2017 covers elements not covered in my initial note of 01/03/2017. SUBJECTIVE: I met with the patient evening of 01/03/2017. Overall, she has been less agitated, less irritable, less paranoid per nursing report. She is doing better as the UTI has been treated. REVIEW OF SYSTEMS: Ambulation impaired, in a Broda chair. No CV, , pulmonary, eye, ENT system symptoms on review. MENTAL STATUS EXAMINATION: Speech coherent, somewhat pressured at times. Abstraction fair, computation impaired, language function intact, attention span short. Mood and affect, somewhat anxious, but improved. LABORATORY DATA: Reviewed. IMPRESSION: Unchanged from initial note. PLAN: Continue current psychotropics, Depakote Sprinkles 1000 mg b.i.d., level therapeutic at 83. Reviewed drug interactions. Risk/benefit ratio favors no further change. TRUPTI CARVAJAL MD DR: ABBIE/juliana JOB#: [id number] / [id number]
[2017-01-05 16:37] VITALS: BP 107/68
[2017-01-05] MEDS: SIMVASTATIN 10 MG TABLET PO SCH (20:38)
[2017-01-05] MEDS: ATORVASTATIN CALCIUM 20 MG TABLET PO SCH (20:38)
--- NOTE | 2017-01-05 21:50 | PDOC ---
Exam Tim Demential Exam: Tim Note: Please also refer to the separate dictated note~for this date of service dictated separately.~Patient seen individually. Discussed the patient with Nursing staff reviewed the chart.~Reviewed interim history and current functioning. Reviewed vital signs,~Labs/ Radiology~and current medications noted below. Continue current treatment with the changes noted in the dictated addendum note Assessment: Vital Signs: Vital Signs Date Time Temp Pulse Resp B/P (MAP) Pulse Ox O2 Delivery O2 Flow Rate FiO2 01/05/17 20:41 66 107/68 01/05/17 16:37 97.3 18 100 Room Air I&O Intake and Output 01/06/17 07:00 Intake Total 1280 ml Balance 1280 ml Intake Oral 1280 ml # Bowel Movements 1 Current Medications: Meds: Current Medications Lorazepam (Ativan) 2 mg STK-MED ONCE .ROUTE ; Start 12/27/16 at 19:15; Stop at 19:16; Status DC Lorazepam (Ativan) 1 mg 1X ONCE IM Last administered on 12/27/16 19:20; Start 12/27/16 at 20:30; Stop 12/27/16 at 20:31; Status DC Cephalexin HCl (Keflex) 500 mg 1X ONCE PO Last administered on 12/27/16 21: 15; Start 12/27/16 at 21:15; Stop 12/27/16 at 21:16; Status DC Acetaminophen (Tylenol) 650 mg PRN Q6HRS PRN PO PAIN / TEMP Last administered on 01/02/17 09:09; Start 12/27/16 at 22:30 Multi-Ingredient Ointment (Analgesic [place]) 1 william PRN QID PRN TP MUSCLE PAIN; Start 12/27/16 at 22:30 Al Hydroxide/Mg Hydroxide (Mylanta Plus Xs) 15 ml PRN AFTMEALHC PRN PO DYSPEPSIA; Start 12/27/16 at 22:30 Magnesium Hydroxide (Milk Of Magnesia) 2,400 mg PRN QHS PRN PO CONSTIPATION; Start 12/27/16 at 22:30 Fluvoxamine Maleate (Luvox) 25 mg HS PO Last administered on 12/29/16 19:54; Start 12/28/16 at 21:00; Stop 12/30/16 at 20:09; Status DC Quetiapine Fumarate (SEROquel) 12.5 mg DAILY PO Last administered on 09:50; Start 12/28/16 at 09:00; Stop 12/28/16 at 18:41; Status DC Quetiapine Fumarate (SEROquel) 25 mg QHS PO Last administered on 12/29/16 19: 54; Start 12/28/16 at 21:00; Stop 12/30/16 at 20:09; Status DC Baclofen (Lioresal) 20 mg QID PO Last administered on 01/05/17 20:38; Start 12/28/16 at 09:00 Divalproex Sodium (Depakote) 1,000 mg BID PO Last administered on 12/28/16 19 :24; Start 12/28/16 at 09:00; Stop 12/29/16 at 08:56; Status DC Acetaminophen (Tylenol) 650 mg PRN Q6HRS PRN PO PAIN / TEMP; Start 12/28/16 at 06:00; Status UNV Vitamin D (Vitamin D3) 1,000 unit DAILY PO Last administered on 01/05/17 08:43 ; Start 12/28/16 at 09:00 Famotidine (Pepcid) 20 mg DAILY PO Last administered on 01/05/17 08:43; Start 12/28/16 at 09:00 Magnesium Hydroxide (Milk Of Magnesia) 2,400 mg PRN QHS PRN PO CONSTIPATION; Start 12/28/16 at 06:00; Status Cancel Metoprolol Tartrate (Lopressor) 12.5 mg PRN BID PRN PO HYPERTENSION, SEE COMMENTS; Start 12/28/16 at 06:00; Stop 12/28/16 at 06:05; Status DC Polyethylene Glycol (miraLAX) 17 gm DAILY PO Last administered on 01/05/17 08: 43; Start 12/28/16 at 09:00 Simvastatin (Zocor) 5 mg QHS PO Last administered on 01/05/17 20:38; Start at 21:00 Valacyclovir HCl (Valtrex) 500 mg DAILY PO Last administered on 01/05/17 08:53 ; Start 12/28/16 at 09:00 Multivitamins/ Calcium (Thera-M Plus) 1 tab DAILY PO Last administered on 08:43; Start 12/28/16 at 09:00 Fosfomycin Tromethamine (Monurol) 3 gm 1X ONCE PO Last administered on 06:08; Start 12/28/16 at 06:00; Stop 12/28/16 at 06:02; Status DC Metoprolol Tartrate (Lopressor) 12.5 mg BID PO Last administered on 01/05/17 20:41; Start 12/28/16 at 09:00 Quetiapine Fumarate (SEROquel) 12.5 mg BID92 PO Last administered on 12/30/16 13:17; Start 12/29/16 at 09:00; Stop 12/30/16 at 20:09; Status DC Divalproex Sodium (Depakote Sprinkles) 1,000 mg BID PO Last administered on 20:38; Start 12/29/16 at 09:00 Nitrofurantoin Macrocrystals (Macrobid) 100 mg BID PO Last administered on 01/05 20:39; Start 12/31/16 at 12:00; Stop 01/07/17 at 11:59 Atorvastatin Calcium (Lipitor) 20 mg QHS PO Last administered on 01/05/17 20: 38; Start 01/02/17 at 21:00 Potassium Chloride (Klor-Con) 20 meq BID PO Last administered on 01/05/17 20: 38; Start 01/04/17 at 21:00 Active Scripts Active Reported Seroquel (Quetiapine Fumarate) 25 Mg Tablet 12.5 Mg PO DAILY Pepcid (Famotidine) 20 Mg Tablet 20 Mg PO DAILY Multivitamins (Multivitamin) 1 Each Tablet 1 Each PO DAILY Metoprolol Tartrate 25 Mg Tablet 12.5 Mg PO BID PRN Vitamin D3 (Cholecalciferol (Vitamin D3)) 1,000 Unit Tablet 1,000 Unit PO DAILY Zocor (Simvastatin) 5 Mg Tablet 5 Mg PO HS Seroquel (Quetiapine Fumarate) 25 Mg Tablet 25 Mg PO QHS Milk Of Magnesia (Magnesium Hydroxide) 400 Mg/5 Ml Oral.susp 2,400 Mg PO PRN QHS PRN Tylenol (Acetaminophen) 325 Mg Tablet 650 Mg PO PRN Q6HRS PRN MDD 4000mg from all sources Valacyclovir (Valacyclovir Hcl) 500 Mg Tablet 500 Mg PO DAILY Polyethylene Glycol 3350 255 Gm Powder 17 Gm PO DAILY Fluvoxamine Maleate 25 Mg Tablet 25 Mg PO HS Depakote (Divalproex Sodium) 500 Mg Tablet.dr 1,000 Mg PO BID Baclofen 20 Mg Tablet 20 Mg PO QID Diagnosis: Problems: (1) Bipolar disorder, curr episode mixed, severe, with psychotic features (2) Anxiety disorder (3) Mild cognitive disorder (4) Impulse control disorder TRUPTI CARVAJAL MD Jan 05, 2017 21:50
--- NOTE | 2017-01-06 04:08 | PN ---
DATE: 01/04/2017 This late entry for 01/04/2017 covers elements not covered in my initial note. SUBJECTIVE: I met with the patient in the evening of 01/04/2017. The patient remains calm, compliant, cooperative. She gets confused thought she was in the hospital in [place], [place]. She has been started on potassium supplements. REVIEW OF SYSTEMS: Ambulation impaired, in a Broda chair. No CV, , pulmonary, eye, ENT system symptoms on review. Reliability varies. MENTAL STATUS EXAM: Oriented to herself and situation. Speech is coherent, abstraction fair, computation impaired, language function intact. She always remembers my name, makes it a point to say this every time I meet with her in her attempt to ensure I recognize that her memory is alright. She had many questions about bipolar disorder circumstances prompting admission because she stated she did not know "what happened to get me here." LABORATORY DATA: Reviewed. IMPRESSION: Unchanged from initial note. PLAN: Continue current psychotropics, Depakote Sprinkles 1000 mg b.i.d., level therapeutic at 83. Reviewed drug interactions. Risk/benefit ratio favors no further change. MAN Derrick CARVAJAL MD DR: ABBIE/juliana JOB#: [id number] / [id number]
[2017-01-06 06:46] VITALS: BP 137/60
[2017-01-06] MEDS: POLYETHYLENE GLYCOL 3350 17 GM PACKET. PO SCH (09:21)
[2017-01-06] MEDS: DIVALPROEX 125 MG CAP.SPRINK PO SCH ×2 (09:21→20:17)
[2017-01-06] MEDS: NITROFURANTOIN MONOHYD/M-CRYST 100 MG CAPSULE. PO SCH ×2 (09:22→20:19)
[2017-01-06] MEDS: BACLOFEN 20 MG TABLET PO SCH ×4 (09:22→20:19)
[2017-01-06] MEDS: CHOLECALCIFEROL (VITAMIN D3) 1,000 UNIT TABLET PO SCH (09:22)
[2017-01-06] MEDS: MULTIVITAMIN with MINERAL TABLET. PO SCH (09:22)
[2017-01-06] MEDS: POTASSIUM CHLORIDE 20 MEQ TABLET.ER. PO SCH ×2 (09:22→20:18)
[2017-01-06] MEDS: METOPROLOL TART IMMED RELEASE 25 MG TABLET PO SCH ×2 (09:23→20:17)
[2017-01-06] MEDS: FAMOTIDINE 20 MG TABLET PO SCH (09:39)
[2017-01-06] MEDS: valACYclovir 500 MG TABLET. PO SCH (09:39)
[2017-01-06 15:53] VITALS: BP 122/81
[2017-01-06] MEDS: ATORVASTATIN CALCIUM 20 MG TABLET PO SCH (20:16)
[2017-01-06] MEDS: SIMVASTATIN 10 MG TABLET PO SCH (20:18)
[2017-01-07 06:16] VITALS: BP 97/57
[2017-01-07] MEDS: DIVALPROEX 125 MG CAP.SPRINK PO SCH ×2 (08:34→19:54)
[2017-01-07] MEDS: FAMOTIDINE 20 MG TABLET PO SCH (08:35)
[2017-01-07] MEDS: POTASSIUM CHLORIDE 20 MEQ TABLET.ER. PO SCH ×2 (08:35→19:56)
[2017-01-07] MEDS: BACLOFEN 20 MG TABLET PO SCH ×4 (08:35→19:55)
[2017-01-07] MEDS: valACYclovir 500 MG TABLET. PO SCH (08:35)
[2017-01-07] MEDS: MULTIVITAMIN with MINERAL TABLET. PO SCH (08:35)
[2017-01-07] MEDS: CHOLECALCIFEROL (VITAMIN D3) 1,000 UNIT TABLET PO SCH (08:35)
[2017-01-07] MEDS: NITROFURANTOIN MONOHYD/M-CRYST 100 MG CAPSULE. PO SCH (08:35)
[2017-01-07] MEDS: POLYETHYLENE GLYCOL 3350 17 GM PACKET. PO SCH (08:36)
[2017-01-07] MEDS: ASCORBIC ACID 500 MG TABLET PO SCH (08:36)
[2017-01-07 09:15] VITALS: BP 106/62
[2017-01-07] MEDS: METOPROLOL TART IMMED RELEASE 25 MG TABLET PO SCH ×2 (09:16→19:54)
[2017-01-07 16:39] VITALS: BP 109/75
[2017-01-07] MEDS: ATORVASTATIN CALCIUM 20 MG TABLET PO SCH (19:54)
[2017-01-07] MEDS: SIMVASTATIN 10 MG TABLET PO SCH (19:56)
--- NOTE | 2017-01-07 20:13 | PDOC ---
Exam Note: Tim Note: Please also refer to the separate dictated note~for this date of service dictated separately.~Patient seen individually. Discussed the patient with Nursing staff reviewed the chart.~Reviewed interim history and current functioning. Reviewed vital signs,~Labs/ Radiology~and current medications noted below. Continue current treatment with the changes noted in the dictated addendum note Assessment: Vital Signs: Vital Signs Date Time Temp Pulse Resp B/P (MAP) Pulse Ox O2 Delivery O2 Flow Rate FiO2 01/07/17 19:54 65 109/75 01/07/17 16:39 97.5 20 99 01/05/17 16:37 Room Air I&O Intake and Output 01/08/17 07:00 Intake Total 1560 ml Balance 1560 ml Intake Oral 1560 ml # Bowel Movements 1 Current Medications: Meds: Current Medications Lorazepam (Ativan) 2 mg STK-MED ONCE .ROUTE ; Start 12/27/16 at 19:15; Stop at 19:16; Status DC Lorazepam (Ativan) 1 mg 1X ONCE IM Last administered on 12/27/16 19:20; Start 12/27/16 at 20:30; Stop 12/27/16 at 20:31; Status DC Cephalexin HCl (Keflex) 500 mg 1X ONCE PO Last administered on 12/27/16 21: 15; Start 12/27/16 at 21:15; Stop 12/27/16 at 21:16; Status DC Acetaminophen (Tylenol) 650 mg PRN Q6HRS PRN PO PAIN / TEMP Last administered on 01/02/17 09:09; Start 12/27/16 at 22:30 Multi-Ingredient Ointment (Analgesic [place]) 1 william PRN QID PRN TP MUSCLE PAIN; Start 12/27/16 at 22:30 Al Hydroxide/Mg Hydroxide (Mylanta Plus Xs) 15 ml PRN AFTMEALHC PRN PO DYSPEPSIA; Start 12/27/16 at 22:30 Magnesium Hydroxide (Milk Of Magnesia) 2,400 mg PRN QHS PRN PO CONSTIPATION; Start 12/27/16 at 22:30 Fluvoxamine Maleate (Luvox) 25 mg HS PO Last administered on 12/29/16 19:54; Start 12/28/16 at 21:00; Stop 12/30/16 at 20:09; Status DC Quetiapine Fumarate (SEROquel) 12.5 mg DAILY PO Last administered on 09:50; Start 12/28/16 at 09:00; Stop 12/28/16 at 18:41; Status DC Quetiapine Fumarate (SEROquel) 25 mg QHS PO Last administered on 12/29/16 19: 54; Start 12/28/16 at 21:00; Stop 12/30/16 at 20:09; Status DC Baclofen (Lioresal) 20 mg QID PO Last administered on 01/07/17 19:55; Start 12/28/16 at 09:00 Divalproex Sodium (Depakote) 1,000 mg BID PO Last administered on 12/28/16 19 :24; Start 12/28/16 at 09:00; Stop 12/29/16 at 08:56; Status DC Acetaminophen (Tylenol) 650 mg PRN Q6HRS PRN PO PAIN / TEMP; Start 12/28/16 at 06:00; Status UNV Vitamin D (Vitamin D3) 1,000 unit DAILY PO Last administered on 01/07/17 08: 35; Start 12/28/16 at 09:00 Famotidine (Pepcid) 20 mg DAILY PO Last administered on 01/07/17 08:35; Start 12/28/16 at 09:00 Magnesium Hydroxide (Milk Of Magnesia) 2,400 mg PRN QHS PRN PO CONSTIPATION; Start 12/28/16 at 06:00; Status Cancel Metoprolol Tartrate (Lopressor) 12.5 mg PRN BID PRN PO HYPERTENSION, SEE COMMENTS; Start 12/28/16 at 06:00; Stop 12/28/16 at 06:05; Status DC Polyethylene Glycol (miraLAX) 17 gm DAILY PO Last administered on 01/07/17 08 :36; Start 12/28/16 at 09:00 Simvastatin (Zocor) 5 mg QHS PO Last administered on 01/07/17 19:56; Start 12/28/16 at 21:00 Valacyclovir HCl (Valtrex) 500 mg DAILY PO Last administered on 01/07/17 08: 35; Start 12/28/16 at 09:00 Multivitamins/ Calcium (Thera-M Plus) 1 tab DAILY PO Last administered on 01/07 08:35; Start 12/28/16 at 09:00 Fosfomycin Tromethamine (Monurol) 3 gm 1X ONCE PO Last administered on 06:08; Start 12/28/16 at 06:00; Stop 12/28/16 at 06:02; Status DC Metoprolol Tartrate (Lopressor) 12.5 mg BID PO Last administered on 01/07/17 19:54; Start 12/28/16 at 09:00 Quetiapine Fumarate (SEROquel) 12.5 mg BID92 PO Last administered on 12/30/16 13:17; Start 12/29/16 at 09:00; Stop 12/30/16 at 20:09; Status DC Divalproex Sodium (Depakote Sprinkles) 1,000 mg BID PO Last administered on 19:54; Start 12/29/16 at 09:00 Nitrofurantoin Macrocrystals (Macrobid) 100 mg BID PO Last administered on 08:35; Start 12/31/16 at 12:00; Stop 01/07/17 at 11:59; Status DC Atorvastatin Calcium (Lipitor) 20 mg QHS PO Last administered on 01/07/17 19: 54; Start 01/02/17 at 21:00 Potassium Chloride (Klor-Con) 20 meq BID PO Last administered on 01/07/17 19: 56; Start 01/04/17 at 21:00 Ascorbic Acid (Vitamin C) 500 mg DAILY PO Last administered on 01/07/17 08:36 ; Start 01/07/17 at 09:00 Active Scripts Active Reported Seroquel (Quetiapine Fumarate) 25 Mg Tablet 12.5 Mg PO DAILY Pepcid (Famotidine) 20 Mg Tablet 20 Mg PO DAILY Multivitamins (Multivitamin) 1 Each Tablet 1 Each PO DAILY Metoprolol Tartrate 25 Mg Tablet 12.5 Mg PO BID PRN Vitamin D3 (Cholecalciferol (Vitamin D3)) 1,000 Unit Tablet 1,000 Unit PO DAILY Zocor (Simvastatin) 5 Mg Tablet 5 Mg PO HS Seroquel (Quetiapine Fumarate) 25 Mg Tablet 25 Mg PO QHS Milk Of Magnesia (Magnesium Hydroxide) 400 Mg/5 Ml Oral.susp 2,400 Mg PO PRN QHS PRN Tylenol (Acetaminophen) 325 Mg Tablet 650 Mg PO PRN Q6HRS PRN MDD 4000mg from all sources Valacyclovir (Valacyclovir Hcl) 500 Mg Tablet 500 Mg PO DAILY Polyethylene Glycol 3350 255 Gm Powder 17 Gm PO DAILY Fluvoxamine Maleate 25 Mg Tablet 25 Mg PO HS Depakote (Divalproex Sodium) 500 Mg Tablet.dr 1,000 Mg PO BID Baclofen 20 Mg Tablet 20 Mg PO QID I have reviewed the current psychotropics carefully including drug interactions. Risk benefit ratio favors no change other than as noted in my dictated progress note. Diagnosis: Problems: (1) Bipolar disorder, curr episode mixed, severe, with psychotic features (2) Anxiety disorder (3) Mild cognitive disorder (4) Impulse control disorder TRUPTI CARVAJAL MD Jan 07, 2017 20:13
[2017-01-08 06:07] VITALS: BP 124/59
--- NOTE | 2017-01-08 06:36 | PN ---
DATE: 01/05/2017 This is a late entry for date of service 01/05/2017 and covers elements not covered in my initial note of 01/05/2017. SUBJECTIVE: The patient was seen individually evening 01/05/2017. She has been calm, somewhat anxious at times, at times hyperverbal but redirectable. REVIEW OF SYSTEMS: Ambulation impaired. No CV, , pulmonary, eye system symptoms on review. Reliability fair. MENTAL STATUS EXAM: Oriented to herself and situation. Speech coherent, abstraction fair, computation impaired, language function intact, short term memory has some impairment. LABORATORY DATA: Reviewed. IMPRESSION: Unchanged from initial note. PLAN: Continue current psychotropics. Reviewed drug interactions. Risk/benefit ratio favors no further change. MAN Derrick CARVAJAL MD DR: ABBIE/juliana JOB#: [id number] / [id number]
--- NOTE | 2017-01-08 06:39 | PN ---
DATE: 01/06/2017 This is a late entry for date of service 01/06/2017 and covers elements not covered in my initial note of 01/06/2017. SUBJECTIVE: The patient was staffed at a treatment team meeting with the entire team the morning of 01/06/2017 and then the patient's sisters, Cass and Alycia attended the conference, reviewed her history, current psychotropics, discharge plans at length. She is compliant with her medications, calm, cooperative, appetite 100%, sleeping about 7 hours. REVIEW OF SYSTEMS: Ambulation impaired, in a Broda chair. No CV, , pulmonary, eye, ENT system symptoms on review. MENTAL STATUS EXAM: Oriented to herself and situation. Speech coherent, rapid at times, she is irritable, labile late in the evening of 01/06/2017 with another patient. No suicidal or homicidal ideation. IMPRESSION: Unchanged from initial note. PLAN: Continue current psychotropics. Reviewed drug interactions, risk/benefit ratio favors no further change. TRUPTI CARVAJAL MD DR: ABBIE/juliana JOB#: [id number] / [id number]
[2017-01-08] MEDS: BACLOFEN 20 MG TABLET PO SCH ×4 (08:18→19:28)
[2017-01-08] MEDS: POTASSIUM CHLORIDE 20 MEQ TABLET.ER. PO SCH ×2 (08:18→19:27)
[2017-01-08] MEDS: POLYETHYLENE GLYCOL 3350 17 GM PACKET. PO SCH (08:18)
[2017-01-08] MEDS: DIVALPROEX 125 MG CAP.SPRINK PO SCH ×2 (08:18→19:27)
[2017-01-08] MEDS: FAMOTIDINE 20 MG TABLET PO SCH (08:18)
[2017-01-08] MEDS: ASCORBIC ACID 500 MG TABLET PO SCH (08:19)
[2017-01-08] MEDS: valACYclovir 500 MG TABLET. PO SCH (08:19)
[2017-01-08] MEDS: CHOLECALCIFEROL (VITAMIN D3) 1,000 UNIT TABLET PO SCH (08:19)
[2017-01-08] MEDS: MULTIVITAMIN with MINERAL TABLET. PO SCH (08:19)
[2017-01-08] MEDS: METOPROLOL TART IMMED RELEASE 25 MG TABLET PO SCH ×2 (09:00→19:28)
[2017-01-08 10:22] LABS: BASO % 1 % (0-3); EOS # 0.1 x10^3/uL (0.0-0.7); EOS % 2 % (0-3); HEMATOCRIT 42.3 % (36.0-47.0); HEMOGLOBIN 14.6 g/dL (12.0-15.5); LYMPH # 1.3 x10^3/uL (1.0-4.8); LYMPH % 35 % (24-48); MEAN CORPUSCULAR HEMOGLOBIN 32 pg (25-35); MEAN CORPUSCULAR HGB CONC 35 g/dL (31-37); MEAN CORPUSCULAR VOLUME 93 fL (79-100); MONO # 0.3 x10^3/uL (0.0-1.1); MONO % 9 % (0-9); NEUT % 54 % (31-73); PLATELET COUNT 140 x10^3/uL (140-400); RED BLOOD COUNT 4.53 x10^6/uL (3.50-5.40); RED CELL DISTRIBUTION WIDTH 13.9 % (11.5-14.5); WHITE BLOOD COUNT 3.7 x10^3/uL (4.0-11.0)
[2017-01-08 10:39] LABS: ALBUMIN 3.1 g/dL (3.4-5.0); ALBUMIN/GLOBULIN RATIO 0.9 (1.0-1.7); CALCIUM 8.4 mg/dL (8.5-10.1); CREATININE 0.5 mg/dL (0.6-1.0); GFR 126.3; POTASSIUM 4.3 mmol/L (3.5-5.1); TOTAL BILIRUBIN 0.2 mg/dL (0.2-1.0); TOTAL PROTEIN 6.4 g/dL (6.4-8.2)
[2017-01-08 12:50] VITALS: BP 114/56
[2017-01-08] MEDS: ACETAMINOPHEN 325 MG TABLET PO PRN (16:08)
[2017-01-08 16:11] VITALS: BP 121/66
[2017-01-08] MEDS: ATORVASTATIN CALCIUM 20 MG TABLET PO SCH (19:27)
--- NOTE | 2017-01-08 20:00 | PDOC ---
Exam Note: Tim Note: Please also refer to the separate dictated note~for this date of service dictated separately.~Patient seen individually. Discussed the patient with Nursing staff reviewed the chart.~Reviewed interim history and current functioning. Reviewed vital signs,~Labs/ Radiology~and current medications noted below. Continue current treatment with the changes noted in the dictated addendum note Assessment: Vital Signs: Vital Signs Date Time Temp Pulse Resp B/P (MAP) Pulse Ox O2 Delivery O2 Flow Rate FiO2 01/08/17 19:28 69 121/66 01/08/17 16:11 97.8 18 95 Room Air I&O Intake and Output 01/09/17 07:00 Intake Total 1200 ml Balance 1200 ml Intake Oral 1200 ml Labs: Laboratory Tests Test 01/08/17 10:00 White Blood Count 3.7 x10^3/uL (4.0-11.0) L Red Blood Count 4.53 x10^6/uL (3.50-5.40) Hemoglobin 14.6 g/dL (12.0-15.5) Hematocrit 42.3 % (36.0-47.0) Mean Corpuscular Volume 93 fL (79-100) Mean Corpuscular Hemoglobin 32 pg (25-35) Mean Corpuscular Hemoglobin Concent 35 g/dL (31-37) Red Cell Distribution Width 13.9 % (11.5-14.5) Platelet Count 140 x10^3/uL (140-400) Neutrophils (%) (Auto) 54 % (31-73) Lymphocytes (%) (Auto) 35 % (24-48) Monocytes (%) (Auto) 9 % (0-9) Eosinophils (%) (Auto) 2 % (0-3) Basophils (%) (Auto) 1 % (0-3) Neutrophils # (Auto) 2.0 x10^3uL (1.8-7.7) Lymphocytes # (Auto) 1.3 x10^3/uL (1.0-4.8) Monocytes # (Auto) 0.3 x10^3/uL (0.0-1.1) Eosinophils # (Auto) 0.1 x10^3/uL (0.0-0.7) Basophils # (Auto) 0.0 x10^3/uL (0.0-0.2) Sodium Level 134 mmol/L (136-145) L Potassium Level 4.3 mmol/L (3.5-5.1) Chloride Level 98 mmol/L (98-107) Carbon Dioxide Level 31 mmol/L (21-32) Anion Gap 5 (6-14) L Blood Urea Nitrogen 7 mg/dL (7-20) Creatinine 0.5 mg/dL (0.6-1.0) L Estimated GFR (Cockcroft-Gault) 126.3 BUN/Creatinine Ratio 14 (6-20) Glucose Level 67 mg/dL (70-99) L Calcium Level 8.4 mg/dL (8.5-10.1) L Total Bilirubin 0.2 mg/dL (0.2-1.0) Aspartate Amino Transferase (AST) 11 U/L (15-37) L Alanine Aminotransferase (ALT) 19 U/L (14-59) Alkaline Phosphatase 61 U/L (46-116) Total Protein 6.4 g/dL (6.4-8.2) Albumin 3.1 g/dL (3.4-5.0) L Albumin/Globulin Ratio 0.9 (1.0-1.7) L Current Medications: Meds: Current Medications Lorazepam (Ativan) 2 mg STK-MED ONCE .ROUTE ; Start 12/27/16 at 19:15; Stop at 19:16; Status DC Lorazepam (Ativan) 1 mg 1X ONCE IM Last administered on 12/27/16 19:20; Start 12/27/16 at 20:30; Stop 12/27/16 at 20:31; Status DC Cephalexin HCl (Keflex) 500 mg 1X ONCE PO Last administered on 12/27/16 21: 15; Start 12/27/16 at 21:15; Stop 12/27/16 at 21:16; Status DC Acetaminophen (Tylenol) 650 mg PRN Q6HRS PRN PO PAIN / TEMP Last administered on 01/08/17 16:08; Start 12/27/16 at 22:30 Multi-Ingredient Ointment (Analgesic [place]) 1 william PRN QID PRN TP MUSCLE PAIN; Start 12/27/16 at 22:30 Al Hydroxide/Mg Hydroxide (Mylanta Plus Xs) 15 ml PRN AFTMEALHC PRN PO DYSPEPSIA; Start 12/27/16 at 22:30 Magnesium Hydroxide (Milk Of Magnesia) 2,400 mg PRN QHS PRN PO CONSTIPATION; Start 12/27/16 at 22:30 Fluvoxamine Maleate (Luvox) 25 mg HS PO Last administered on 12/29/16 19:54; Start 12/28/16 at 21:00; Stop 12/30/16 at 20:09; Status DC Quetiapine Fumarate (SEROquel) 12.5 mg DAILY PO Last administered on 09:50; Start 12/28/16 at 09:00; Stop 12/28/16 at 18:41; Status DC Quetiapine Fumarate (SEROquel) 25 mg QHS PO Last administered on 12/29/16 19: 54; Start 12/28/16 at 21:00; Stop 12/30/16 at 20:09; Status DC Baclofen (Lioresal) 20 mg QID PO Last administered on 01/08/17 19:28; Start 12/28/16 at 09:00 Divalproex Sodium (Depakote) 1,000 mg BID PO Last administered on 12/28/16 19 :24; Start 12/28/16 at 09:00; Stop 12/29/16 at 08:56; Status DC Acetaminophen (Tylenol) 650 mg PRN Q6HRS PRN PO PAIN / TEMP; Start 12/28/16 at 06:00; Status UNV Vitamin D (Vitamin D3) 1,000 unit DAILY PO Last administered on 01/08/17 08: 19; Start 12/28/16 at 09:00 Famotidine (Pepcid) 20 mg DAILY PO Last administered on 01/08/17 08:18; Start 12/28/16 at 09:00 Magnesium Hydroxide (Milk Of Magnesia) 2,400 mg PRN QHS PRN PO CONSTIPATION; Start 12/28/16 at 06:00; Status Cancel Metoprolol Tartrate (Lopressor) 12.5 mg PRN BID PRN PO HYPERTENSION, SEE COMMENTS; Start 12/28/16 at 06:00; Stop 12/28/16 at 06:05; Status DC Polyethylene Glycol (miraLAX) 17 gm DAILY PO Last administered on 01/08/17 08 :18; Start 12/28/16 at 09:00 Simvastatin (Zocor) 5 mg QHS PO Last administered on 01/07/17 19:56; Start 12/28/16 at 21:00; Stop 01/08/17 at 16:14; Status DC Valacyclovir HCl (Valtrex) 500 mg DAILY PO Last administered on 01/08/17 08: 19; Start 12/28/16 at 09:00 Multivitamins/ Calcium (Thera-M Plus) 1 tab DAILY PO Last administered on 01/08 08:19; Start 12/28/16 at 09:00 Fosfomycin Tromethamine (Monurol) 3 gm 1X ONCE PO Last administered on 06:08; Start 12/28/16 at 06:00; Stop 12/28/16 at 06:02; Status DC Metoprolol Tartrate (Lopressor) 12.5 mg BID PO Last administered on 01/08/17 19:28; Start 12/28/16 at 09:00 Quetiapine Fumarate (SEROquel) 12.5 mg BID92 PO Last administered on 12/30/16 13:17; Start 12/29/16 at 09:00; Stop 12/30/16 at 20:09; Status DC Divalproex Sodium (Depakote Sprinkles) 1,000 mg BID PO Last administered on 19:27; Start 12/29/16 at 09:00 Nitrofurantoin Macrocrystals (Macrobid) 100 mg BID PO Last administered on 08:35; Start 12/31/16 at 12:00; Stop 01/07/17 at 11:59; Status DC Atorvastatin Calcium (Lipitor) 20 mg QHS PO Last administered on 01/08/17 19: 27; Start 01/02/17 at 21:00 Potassium Chloride (Klor-Con) 20 meq BID PO Last administered on 01/08/17 19: 27; Start 01/04/17 at 21:00 Ascorbic Acid (Vitamin C) 500 mg DAILY PO Last administered on 01/08/17 08:19 ; Start 01/07/17 at 09:00 Active Scripts Active Reported Seroquel (Quetiapine Fumarate) 25 Mg Tablet 12.5 Mg PO DAILY Pepcid (Famotidine) 20 Mg Tablet 20 Mg PO DAILY Multivitamins (Multivitamin) 1 Each Tablet 1 Each PO DAILY Metoprolol Tartrate 25 Mg Tablet 12.5 Mg PO BID PRN Vitamin D3 (Cholecalciferol (Vitamin D3)) 1,000 Unit Tablet 1,000 Unit PO DAILY Zocor (Simvastatin) 5 Mg Tablet 5 Mg PO HS Seroquel (Quetiapine Fumarate) 25 Mg Tablet 25 Mg PO QHS Milk Of Magnesia (Magnesium Hydroxide) 400 Mg/5 Ml Oral.susp 2,400 Mg PO PRN QHS PRN Tylenol (Acetaminophen) 325 Mg Tablet 650 Mg PO PRN Q6HRS PRN MDD 4000mg from all sources Valacyclovir (Valacyclovir Hcl) 500 Mg Tablet 500 Mg PO DAILY Polyethylene Glycol 3350 255 Gm Powder 17 Gm PO DAILY Fluvoxamine Maleate 25 Mg Tablet 25 Mg PO HS Depakote (Divalproex Sodium) 500 Mg Tablet.dr 1,000 Mg PO BID Baclofen 20 Mg Tablet 20 Mg PO QID I have reviewed the current psychotropics carefully including drug interactions. Risk benefit ratio favors no change other than as noted in my dictated progress note. Diagnosis: Problems: (1) Bipolar disorder, curr episode mixed, severe, with psychotic features (2) Anxiety disorder (3) Mild cognitive disorder (4) Impulse control disorder TRUPTI CARVAJAL MD Jan 08, 2017 20:00
[2017-01-09 06:40] VITALS: BP 108/70
[2017-01-09] MEDS: BACLOFEN 20 MG TABLET PO SCH ×4 (09:11→19:53)
[2017-01-09] MEDS: DIVALPROEX 125 MG CAP.SPRINK PO SCH ×2 (09:11→19:52)
[2017-01-09] MEDS: POTASSIUM CHLORIDE 20 MEQ TABLET.ER. PO SCH ×2 (09:11→19:53)
[2017-01-09] MEDS: METOPROLOL TART IMMED RELEASE 25 MG TABLET PO SCH (09:12)
[2017-01-09] MEDS: MULTIVITAMIN with MINERAL TABLET. PO SCH (09:12)
[2017-01-09] MEDS: valACYclovir 500 MG TABLET. PO SCH (09:12)
[2017-01-09] MEDS: POLYETHYLENE GLYCOL 3350 17 GM PACKET. PO SCH (09:12)
[2017-01-09] MEDS: FAMOTIDINE 20 MG TABLET PO SCH (09:12)
[2017-01-09] MEDS: CHOLECALCIFEROL (VITAMIN D3) 1,000 UNIT TABLET PO SCH (09:12)
[2017-01-09] MEDS: ASCORBIC ACID 500 MG TABLET PO SCH (09:12)
[2017-01-09 16:08] VITALS: BP 104/64
[2017-01-09] MEDS: ATORVASTATIN CALCIUM 20 MG TABLET PO SCH (19:53)
--- NOTE | 2017-01-09 20:06 | PDOC ---
Exam Note: Tim Note: Please also refer to the separate dictated note~for this date of service dictated separately.~Patient seen individually. Discussed the patient with Nursing staff reviewed the chart.~Reviewed interim history and current functioning. Reviewed vital signs,~Labs/ Radiology~and current medications noted below. Continue current treatment with the changes noted in the dictated addendum note Assessment: Vital Signs: Vital Signs Date Time Temp Pulse Resp B/P (MAP) Pulse Ox O2 Delivery O2 Flow Rate FiO2 01/09/17 16:08 97.6 71 18 104/64 (77) 97 Room Air I&O Intake and Output 01/10/17 07:00 Intake Total 780 ml Balance 780 ml Intake Oral 780 ml # Bowel Movements 4 Current Medications: Meds: Current Medications Lorazepam (Ativan) 2 mg STK-MED ONCE .ROUTE ; Start 12/27/16 at 19:15; Stop at 19:16; Status DC Lorazepam (Ativan) 1 mg 1X ONCE IM Last administered on 12/27/16 19:20; Start 12/27/16 at 20:30; Stop 12/27/16 at 20:31; Status DC Cephalexin HCl (Keflex) 500 mg 1X ONCE PO Last administered on 12/27/16 21: 15; Start 12/27/16 at 21:15; Stop 12/27/16 at 21:16; Status DC Acetaminophen (Tylenol) 650 mg PRN Q6HRS PRN PO PAIN / TEMP Last administered on 01/08/17 16:08; Start 12/27/16 at 22:30 Multi-Ingredient Ointment (Analgesic [place]) 1 william PRN QID PRN TP MUSCLE PAIN; Start 12/27/16 at 22:30 Al Hydroxide/Mg Hydroxide (Mylanta Plus Xs) 15 ml PRN AFTMEALHC PRN PO DYSPEPSIA; Start 12/27/16 at 22:30 Magnesium Hydroxide (Milk Of Magnesia) 2,400 mg PRN QHS PRN PO CONSTIPATION; Start 12/27/16 at 22:30 Fluvoxamine Maleate (Luvox) 25 mg HS PO Last administered on 12/29/16 19:54; Start 12/28/16 at 21:00; Stop 12/30/16 at 20:09; Status DC Quetiapine Fumarate (SEROquel) 12.5 mg DAILY PO Last administered on 09:50; Start 12/28/16 at 09:00; Stop 12/28/16 at 18:41; Status DC Quetiapine Fumarate (SEROquel) 25 mg QHS PO Last administered on 12/29/16 19: 54; Start 12/28/16 at 21:00; Stop 12/30/16 at 20:09; Status DC Baclofen (Lioresal) 20 mg QID PO Last administered on 01/09/17 19:53; Start 12/28/16 at 09:00 Divalproex Sodium (Depakote) 1,000 mg BID PO Last administered on 12/28/16 19 :24; Start 12/28/16 at 09:00; Stop 12/29/16 at 08:56; Status DC Acetaminophen (Tylenol) 650 mg PRN Q6HRS PRN PO PAIN / TEMP; Start 12/28/16 at 06:00; Status UNV Vitamin D (Vitamin D3) 1,000 unit DAILY PO Last administered on 01/09/17 09: 12; Start 12/28/16 at 09:00 Famotidine (Pepcid) 20 mg DAILY PO Last administered on 01/09/17 09:12; Start 12/28/16 at 09:00 Magnesium Hydroxide (Milk Of Magnesia) 2,400 mg PRN QHS PRN PO CONSTIPATION; Start 12/28/16 at 06:00; Status Cancel Metoprolol Tartrate (Lopressor) 12.5 mg PRN BID PRN PO HYPERTENSION, SEE COMMENTS; Start 12/28/16 at 06:00; Stop 12/28/16 at 06:05; Status DC Polyethylene Glycol (miraLAX) 17 gm DAILY PO Last administered on 01/09/17 09 :12; Start 12/28/16 at 09:00 Simvastatin (Zocor) 5 mg QHS PO Last administered on 01/07/17 19:56; Start 12/28/16 at 21:00; Stop 01/08/17 at 16:14; Status DC Valacyclovir HCl (Valtrex) 500 mg DAILY PO Last administered on 01/09/17 09: 12; Start 12/28/16 at 09:00 Multivitamins/ Calcium (Thera-M Plus) 1 tab DAILY PO Last administered on 01/09 09:12; Start 12/28/16 at 09:00 Fosfomycin Tromethamine (Monurol) 3 gm 1X ONCE PO Last administered on 06:08; Start 12/28/16 at 06:00; Stop 12/28/16 at 06:02; Status DC Metoprolol Tartrate (Lopressor) 12.5 mg BID PO Last administered on 01/08/17 19:28; Start 12/28/16 at 09:00; Stop 01/09/17 at 12:52; Status DC Quetiapine Fumarate (SEROquel) 12.5 mg BID92 PO Last administered on 12/30/16 13:17; Start 12/29/16 at 09:00; Stop 12/30/16 at 20:09; Status DC Divalproex Sodium (Depakote Sprinkles) 1,000 mg BID PO Last administered on 19:52; Start 12/29/16 at 09:00 Nitrofurantoin Macrocrystals (Macrobid) 100 mg BID PO Last administered on 08:35; Start 12/31/16 at 12:00; Stop 01/07/17 at 11:59; Status DC Atorvastatin Calcium (Lipitor) 20 mg QHS PO Last administered on 01/09/17 19: 53; Start 01/02/17 at 21:00 Potassium Chloride (Klor-Con) 20 meq BID PO Last administered on 01/09/17 19: 53; Start 01/04/17 at 21:00 Ascorbic Acid (Vitamin C) 500 mg DAILY PO Last administered on 01/09/17 09:12 ; Start 01/07/17 at 09:00 Active Scripts Active Reported Seroquel (Quetiapine Fumarate) 25 Mg Tablet 12.5 Mg PO DAILY Pepcid (Famotidine) 20 Mg Tablet 20 Mg PO DAILY Multivitamins (Multivitamin) 1 Each Tablet 1 Each PO DAILY Metoprolol Tartrate 25 Mg Tablet 12.5 Mg PO BID PRN Vitamin D3 (Cholecalciferol (Vitamin D3)) 1,000 Unit Tablet 1,000 Unit PO DAILY Zocor (Simvastatin) 5 Mg Tablet 5 Mg PO HS Seroquel (Quetiapine Fumarate) 25 Mg Tablet 25 Mg PO QHS Milk Of Magnesia (Magnesium Hydroxide) 400 Mg/5 Ml Oral.susp 2,400 Mg PO PRN QHS PRN Tylenol (Acetaminophen) 325 Mg Tablet 650 Mg PO PRN Q6HRS PRN MDD 4000mg from all sources Valacyclovir (Valacyclovir Hcl) 500 Mg Tablet 500 Mg PO DAILY Polyethylene Glycol 3350 255 Gm Powder 17 Gm PO DAILY Fluvoxamine Maleate 25 Mg Tablet 25 Mg PO HS Depakote (Divalproex Sodium) 500 Mg Tablet.dr 1,000 Mg PO BID Baclofen 20 Mg Tablet 20 Mg PO QID I have reviewed the current psychotropics carefully including drug interactions. Risk benefit ratio favors no change other than as noted in my dictated progress note. Diagnosis: Problems: (1) Bipolar disorder, curr episode mixed, severe, with psychotic features (2) Anxiety disorder (3) Mild cognitive disorder (4) Impulse control disorder TRUPTI CARVAJAL MD Jan 09, 2017 20:06
[2017-01-09] MEDS ORDERED: ASCO-78 PO (22:55)
[2017-01-09] MEDS ORDERED: ATOR20TA PO (22:56)
[2017-01-09] MEDS ORDERED: DIVA125C PO (22:58)
[2017-01-09] MEDS ORDERED: MAG30ORA2 PO (22:59)
[2017-01-09] MEDS ORDERED: METH29OI TP (22:59)
[2017-01-09] MEDS ORDERED: POTA20TA4 PO (23:01)
[2017-01-10 06:02] VITALS: BP 140/77
[2017-01-10 07:32] LABS: BASO % 0 % (0-3); EOS # 0.1 x10^3/uL (0.0-0.7); EOS % 2 % (0-3); HEMATOCRIT 42.6 % (36.0-47.0); HEMOGLOBIN 14.7 g/dL (12.0-15.5); LYMPH # 1.4 x10^3/uL (1.0-4.8); LYMPH % 40 % (24-48); MEAN CORPUSCULAR HEMOGLOBIN 32 pg (25-35); MEAN CORPUSCULAR HGB CONC 35 g/dL (31-37); MEAN CORPUSCULAR VOLUME 93 fL (79-100); MONO # 0.3 x10^3/uL (0.0-1.1); MONO % 9 % (0-9); NEUT # 1.7 x10^3uL (1.8-7.7); NEUT % 49 % (31-73); PLATELET COUNT 138 x10^3/uL (140-400); RED CELL DISTRIBUTION WIDTH 13.9 % (11.5-14.5); WHITE BLOOD COUNT 3.5 x10^3/uL (4.0-11.0)
[2017-01-10] MEDS: DIVALPROEX 125 MG CAP.SPRINK PO SCH (07:34)
[2017-01-10] MEDS: BACLOFEN 20 MG TABLET PO SCH (07:35)
[2017-01-10] MEDS: POTASSIUM CHLORIDE 20 MEQ TABLET.ER. PO SCH (07:35)
[2017-01-10] MEDS: POLYETHYLENE GLYCOL 3350 17 GM PACKET. PO SCH (07:35)
[2017-01-10] MEDS: FAMOTIDINE 20 MG TABLET PO SCH (07:37)
[2017-01-10] MEDS: MULTIVITAMIN with MINERAL TABLET. PO SCH (07:39)
[2017-01-10] MEDS: valACYclovir 500 MG TABLET. PO SCH (07:42)
[2017-01-10] MEDS: CHOLECALCIFEROL (VITAMIN D3) 1,000 UNIT TABLET PO SCH (07:43)
[2017-01-10] MEDS: ASCORBIC ACID 500 MG TABLET PO SCH (07:43)
[2017-01-10 07:48] LABS: ALBUMIN 3.1 g/dL (3.4-5.0); ALBUMIN/GLOBULIN RATIO 0.9 (1.0-1.7); CALCIUM 8.6 mg/dL (8.5-10.1); CREATININE 0.4 mg/dL (0.6-1.0); GFR 163.4; POTASSIUM 3.9 mmol/L (3.5-5.1); TOTAL BILIRUBIN 0.3 mg/dL (0.2-1.0); TOTAL PROTEIN 6.4 g/dL (6.4-8.2)
--- NOTE | 2017-01-10 09:58 | PN ---
DATE: 01/07/2017 PSYCHIATRIC PROGRESS NOTE This late entry 01/07/2017, covers elements not covered in my initial note of 01/07/2017. I met with the patient evening of 01/07/2017. She has been fairly cooperative, became a little irritable, labile late in the evening of 01/07/2017. REVIEW OF SYSTEMS: Ambulation impaired, in a Broda chair. No CV, , pulmonary, eye system symptoms on review. MENTAL STATUS EXAM: Oriented to herself and situation. Speech, often responses monosyllabic. She continues to ask many, many questions every time I visit with her, but they are all the same about her diagnosis. She makes it a point to make sure I know that she remembers my name. No active suicidal or homicidal ideation. Attention span short. Language function: Intact. IMPRESSION: Unchanged from my initial note. PLAN: No change in psychotropics from my initial note. MAN Derrick CARVAJAL MD DR: ABBIE/juliana JOB#: [id number] / [id number]
--- NOTE | 2017-01-10 10:04 | PN ---
DATE: 01/08/2017 PSYCHIATRIC PROGRESS NOTE This late entry 01/08/2017 covers elements not covered in my initial note of 01/08/2017. SUBJECTIVE: I met with the patient the evening of 01/08/2017. The patient did reasonably well previous evening and during the day 01/08/2017, talking to nursing staff about heaven and advent matters. The nursing staff will check with Dr. Jimenez by the family's request to have the patient on prophylactic antibiotics for recurrent UTIs. REVIEW OF SYSTEMS: Ambulation impaired, in a Broda chair. No CV, , pulmonary, eye, ENT system symptoms on review. Reliability is fair. MENTAL STATUS EXAM: Reasonably oriented. Speech coherent, abstraction fair, computation impaired, language function intact. Mood and affect showing improvement, less labile. IMPRESSION: Unchanged from initial note. PLAN: No change from my initial note. MAN Derrick CARVAJAL MD DR: ABBIE/juliana JOB#: [id number] / [id number]
--- NOTE | 2017-01-11 07:56 | PN ---
DATE: 01/09/2017 PSYCHIATRIC PROGRESS NOTE This late entry 01/09/2017, covers elements not covered in my initial note of 01/09/2017. SUBJECTIVE: The patient has been joking appropriate, interactive, funny, per nursing report, did reasonably well previous evening and during the day on 01/09/2017. REVIEW OF SYSTEMS: Ambulation impaired, in a Broda chair. No CV, , pulmonary, eye, ENT system symptoms on review. MENTAL STATUS EXAM: Oriented to herself and situation. Speech coherent, less pressured. Abstraction fair, computation impaired, language function intact. Mood and affect showing improvement. IMPRESSION: Unchanged from my initial note. PLAN: Continue current psychotropics mentioned in my initial note. Adjust further as clinically indicated. MAN Derrick CARVAJAL MD DR: ABBIE/juliana JOB#: [id number] / [id number]
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
== END 2017-01-10 11:10 | disposition home or self-care (01) | DRG 885 ==
LOC: ER 18:45 → GEROPSY 21:41
PROVIDERS: ADMIT Psychiatry & Neurology Psychiatry; ATTEND Psychiatry & Neurology Psychiatry
DX: F31.64 Bipolar disorder, current episode mixed, severe, with psychotic features (principal); G81.94 Hemiplegia, unspecified affecting left nondominant side; N39.0 Urinary tract infection, site not specified; G40.909 Epilepsy, unspecified, not intractable, without status epilepticus; F41.9 Anxiety disorder, unspecified; F63.9 Impulse disorder, unspecified; F91.9 Conduct disorder, unspecified; M21.372 Foot drop, left foot; J30.9 Allergic rhinitis, unspecified; R13.10 Dysphagia, unspecified; K59.09 Other constipation; R32 Unspecified urinary incontinence; T24.212A Burn of second degree of left thigh, initial encounter; X10.0XXA Contact with hot drinks, initial encounter; Z66 Do not resuscitate; Z87.440 Personal history of urinary (tract) infections; Z87.820 Personal history of traumatic brain injury; Z87.891 Personal history of nicotine dependence; Z91.81 History of falling; Y93.89 Activity, other specified; Y92.89 Other specified places as the place of occurrence of the external cause; Y99.8 Other external cause status
CPT/HCPCS: 36415; 80053; 80061; 80164; 81001; 82306; 82607; 83036; 83540; 83550; 83735; 84436; 84443; 84480; 85025; 86592; 86593; 87086; 87186; 93005; 96372; J2060; P9612; 99285-25